=== PATIENT | female | born 1960 | race Caucasian/White ===

== ENCOUNTER 2016-06-09 11:14 | Emergency (ER) | payer OTHER, MEDICARE ==
[~2016-06-09] VITALS: Ht 167.6 cm; Wt 90.9 kg
[~2016-06-09 11:14] MED LIST: CHOL500050 PO; CLOB15CR3 TP; CYA1000I IM; FLUT16SP2 NS; HYDR4TAB PO; MAGN500C4 PO; METH5SOL PO; METH750T3 PO; PANT40VI2 IV; [UNRECOGNIZED DRUG - CODE] IV
[2016-06-09 11:28] VITALS: BP 126/75; PULSE 79; RESP 17; O2SAT 97
--- NOTE | 2016-06-09 11:44 | ED.REPORT ---
HPI-Extremity Problem Lower Date of Service Jun 09, 2016 ED Provider: Jimmy Gonzales MD The patient is a 55 year old female with history of hypotension who presents to the emergency department complaining of left ankle pain that began last night after she fell around 1900. The patient states she was at a restaurant that was poorly lit and she missed a step and fell on her left side. She did not hit her head or lose consciousness. At this time she complains of left ankle pain, left foot pain, bilateral knee pain, and left hand pain. She has been unable to bear weight on her left leg since onset. She is not on blood thinners. She has not injured her left ankle, foot, or knee in the past. She has history of chronic pain and takes Dilaudid as needed. Nursing Notes Stated Complaint: LEFT LEG PAIN Chief Complaint: Extremity Trauma Nursing Notes Reviewed: Yes Allergies: Coded Allergies: codeine (Verified Allergy, Intermediate, Hives, 02/04/16) diclofenac sodium (Verified Allergy, Intermediate, Rash, 02/04/16) ibuprofen (Verified Allergy, Intermediate, Nausea,Vomiting, 02/04/16) zolpidem (Verified Allergy, Intermediate, sleep walking/ abnormal activity , 01/08/14) Adhesives (Unverified Allergy, Unknown, UNKNOWN (NO PLASTIC TAPE-HYPA FIX OK), 02/04/16) Tetracyclines (Unverified Allergy, Unknown, UNKNOWN, 02/04/16) capsaicin (Verified Allergy, Unknown, Blood blisters, 02/04/16) menthol (Verified Allergy, Unknown, blood blisters, 02/04/16) aspirin (Verified Adverse Reaction, Severe, Contraindicated post gastric bypass, 02/04/16) morphine (Unverified Adverse Reaction, Severe, NO ALLERGY-DRUG NOT EFFECTIVE, 02/04/16) Uncoded Allergies: NSAIDS (Allergy, Unknown, WITH GASTRIC SURGERY NO NSAIDS, 02/04/16) Scheduled Cholecalciferol (Vitamin D3) (Vitamin D3) 50,000 Unit Capsule 50,000 UNIT PO WKLY Cyanocobalamin (Cyanocobalamin Injection) 1,000 Mcg/1 Ml Vial 1,000 MCG IM Monthly 10TH OF THE MONTH Fluticasone Propionate (Flonase Nasal) 16 Gm [place].susp 1 SPRAY NS prn Magnesium Oxide (Magnesium) 500 Mg Capsule 500 MG PO DAILY Methadone (Methadone) 5 Mg/5 Ml Solution 10 MG PO am and mid day Methadone (Methadone) 5 Mg/5 Ml Solution 5 MG PO HS Pantoprazole Sodium (Protonix IV) 40 Mg Vial 40 MG IV Q 8HRS Promethazine (Promethazine) 50 Mg/1 Ml Ampul 50 MG IV Q 4HRS PRN Scheduled PRN Clobetasol Propionate/Emoll (Clobetasol Emollient 0.05% Crm) 15 Gm Cream..g. 1 APPL TP BID PRN PRN PRN Hydromorphone (Hydromorphone) 4 Mg Tablet 4-8 MG PO q6hrs PRN PRN Pain Methocarbamol (Methocarbamol) 750 Mg Tablet 750 MG PO TID PRN PRN For Spasm General Time Seen by MD: 11:38 Chief Complaint Leg injury left Hx Obtained From: Patient Arrived By: Wheelchair Onset Occurred: Yesterday Symptom Duration: Since onset Caused by: Fall on ground Location: : Foot left: Knee left: Knee right: Leg left: Leg right Quality: Painful Severity: Current: Moderate Severity: Maximum: Moderate Exacerbated by: Range of motion, Movement Relieved by: Immobilization Recent Healthcare: No recent doctor visit, No recent hospitalization Similar Sx Previous: No Past Medical History Past Medical History Hypotension Esophageal dysmotility GERD Chronic pain Past Surgical History Gastric bypass Family History Noncontributory Smoking History Former Smoker Social History Other Social History: Good social support, Local resident Ambulatory Status Independent Review of Systems Musculoskeletal: Reports: Extremity pain, Joint pain, Joint swelling Skin: Reports Swelling Complete sys rev & neg: except as marked. Physical Exam Initial Vital Signs Vital Signs (First) Date Time Temp Pulse Resp B/P Pulse Ox O2 Delivery O2 Flow Rate FiO2 06/09/16 11:28 79 17 126/75 97 Room Air 06/09/16 14:08 36.4 Initial VS: Reviewed Head / Eyes: Atraumatic, Normocephalic, PERRL ENT: Mucous membranes moist, Conjunctiva normal, No scleral icterus Neck: Supple, Non-tender, Full range of motion Respiratory: Breath sounds normal, Clear to auscultation, No respiratory distress Cardiovascular: Regular rate & rhythm, Heart sounds normal, Intact distal pulses Abdomen / GI: Soft, Non-tender, No guarding, No rebound, No distention Lymphatic: No lymphadenopathy Upper Extremities: Vascular intact, Neuro intact Skin: Warm, Dry, No cyanosis Neurologic: Alert, Oriented, Nonfocal Psychiatric: Mood/affect normal, Behavior normal, Normal thought content Lower Extremity / Pelvis / MS: Neurologic intact, Vascular intact She has diffuse tenderness about the left knee, there is an abrasion and ecchymosis overlying the inferior aspect of the left patella. She has swelling about the left lateral foot and ankle. She is tender about the left lateral ankle and there is an overlying abrasion. There is also an abrasion overlying the right knee. Otherwise extremities are atraumatic. General/Constitutional: Awake, Cooperative Upper Extremity / MS: Neurologic intact, Vascular intact Ecchymosis overlying the dorsal PIP joint of her left fifth finger. She has pain with flexion of her left small finger. Good cap refill sensation intact. Otherwise her upper extremities are atraumatic. Interpretation & Diagnostics X-Ray Interpretation Xray Interpretation: IMPRESSION: Cortical irregularity along the anterior aspect of the talus and navicular bones. There is mild appearance of overlying soft tissue edema particularly over the talus portion. While these could represent areas of old injury, recommend correlation with point tenderness, as acute fracture cannot be excluded. Dictated by: Nicole Rubio M.D. on 06/09/2016 at 12:53 X-Ray Ordered: Ankle left Interpretation / Wet Read by: Interpret - Radiologist Xray Interpretation: IMPRESSION: No visualized acute fracture or dislocation. However, if clinical concern and/or pain persist, short interval imaging followup in 7-10 days is recommended, as occult injury cannot be definitively excluded. Dictated by: Nicole Rubio M.D. on 06/09/2016 at 12:58 X-Ray Ordered: Knee left Interpretation / Wet Read by: Interpret - Radiologist Xray Interpretation: IMPRESSION: Cortical irregularities of the anterior talus and navicular bones as above. While these may be sequela of old trauma, given history of recent fall, recommend correlation point tenderness as acute subacute fracture cannot be excluded. Dictated by: Nicole Rubio M.D. on 06/09/2016 at 12:59 X-Ray Ordered: Foot left Interpretation / Wet Read by: Interpret - Radiologist Xray Interpretation: IMPRESSION: No visualized acute fracture or dislocation. However, if clinical concern and/or pain persist, short interval imaging followup in 7-10 days is recommended, as occult injury cannot be definitively excluded. Dictated by: Nicole Rubio M.D. on 06/09/2016 at 13:00 X-Ray Ordered: Hand left Interpretation / Wet Read by: Interpret - Radiologist Xray Interpretation: IMPRESSION: No visualized acute fracture or dislocation. However, if clinical concern and/or pain persist, short interval imaging followup in 7-10 days is recommended, as occult injury cannot be definitively excluded. Dictated by: Nicole Rubio M.D. on 06/09/2016 at 12:57 X-Ray Ordered: Knee right Interpretation / Wet Read by: Interpret - Radiologist Re-Eval/Medical Decision Med Decision/Clinical Course In summary, the patient is a 55-year-old female with chronic pain on oral Dilaudid presents to the emergency department for evaluation after a ground- level fall that she sustained last night while walking down some stairs. She is complaining about left fifth finger pain, bilateral knee pain and left ankle pain. The patient is afebrile with stable vital signs and examination as above. She is neurovascularly intact in all 4 extremities. There is no evidence on plain films of fracture to her left hand or bilateral knees. Her primary complaint is her left ankle/foot. X-rays of this region demonstrated soft tissue swelling without any obvious fracture. She complains that she is having significant ongoing foot pain and difficulty weightbearing. I cannot definitively rule out occult fracture though her overall presentation seems most consistent with ankle sprain. She was placed in a boot and offered crutches so she stated that she was not able to use crutches due to previous injuries. She came to the emergency room with a walker which she will use instead. At this time, there is no evidence of any neurovascular injury or significant ligamentous instability. She will follow up closely with her primary care physician next week. Her pain was treated here in the emergency department with one Newcomb. She will elevate her leg and apply ice packs. She will continue to take her regularly prescribed dilaudid and I do not feel that additional pain medications are indicated at this time. Follow-up and return precautions were reviewed in detail and she was discharged in good condition. Additionally she was placed in a left fifth finger splint at her request due to ongoing pain in her finger. Source of Hx: Old records Re-Evaluation/Progress : Time of Eval: 13:18 Re-Evaluation/Progress Note: Rechecked the patient. Discussed results, diagnosis, and plan for discharge. Counseled Regarding: Diagnosis, Need for follow-up, When/why to return to ED Discharge & Departure Impression: Primary Impression: Fall Encounter type: initial encounter Qualified Code: W19.XXXA - Unspecified fall, initial encounter Additional Impressions: Contusion of left knee Encounter type: initial encounter Qualified Code: S80.02XA - Contusion of left knee, initial encounter Contusion of right knee Encounter type: initial encounter Qualified Code: S80.01XA - Contusion of right knee, initial encounter Contusion of left index finger Encounter type: initial encounter Damage to nail status: without damage Qualified Code: S60.022A - Contusion of left index finger without damage to nail, initial encounter Ankle sprain Encounter type: initial encounter Involved ligament of ankle: unspecified ligament Laterality: left Qualified Code: S93.402A - Sprain of unspecified ligament of left ankle, initial encounter Disposition: Home Discharge Condition All VS Reviewed: Yes Condition: Stable Patient Instructions: Ankle Sprain (GEN) Additional Instructions: Thank you for seeking care at the emergency room. Our primary goal today in the ED was to evaluate you for any life-threatening conditions. Your evaluation was reassuring. Wear the boot and limit weight bearing until it is starting to feel better. Elevate the ankle at night and apply ice when possible. You can use your regularly prescribed pain medication as needed. Followup with your regular doctor next week for re-evaluation. If your pain is not improved by next week you may need a repeat x-ray. You should return to the ED immediately if you develop increased pain, swelling , or redness, fever, chills, nausea, vomiting, or any other concerning signs or symptoms. Thank you for letting us partake in your care today. Referrals: Rey Del Real MD (PCP) Miguelibnanci Attestation Portions of this note were transcribed by Nelia Carlton. I, Dr. Gonzales personally performed the history, physical exam and medical decision-making; I reviewed and confirmed the accuracy of the information in the transcribed note. Signed by: Caleb Cha, 06/09/2016 at 1330. copies to: Rey Del Real MD, Beck O MD Jun 09, 2016 11:44 Nelia Carlton Jun 09, 2016 11:50
--- NOTE | 2016-06-09 12:59 | DRSVH ---
PROCEDURE: X-RAY LEFT ANKLE, MINIMUM THREE VIEWS ([id number]) INDICATIONS: trauma TECHNIQUE: 3 views of the ankle were acquired. COMPARISON: [facility], CR, XR FOOT 3VW LT, 06/09/2016, 11:49. FINDINGS: Bones: There is an osseous cortical irregularity along the anterior aspect of the talus. In addition, there is a cortical irregularity along the dorsal aspect of the navicular bone. Soft tissues: No tibiotalar joint effusion. Achilles tendon appears normal. IMPRESSION: Cortical irregularity along the anterior aspect of the talus and navicular bones. There i s mild appearance of overlying soft tissue edema particularly over the talus portion. While these cou ld represent areas of old injury, recommend correlation with point tenderness, as acute fracture yovani ot be excluded. Dictated by: Nicole Rubio M.D. on 06/09/2016 at 12:53 Approved by: Nicole Rubio M.D. on 06/09/2016 at 12:57
--- NOTE | 2016-06-09 13:00 | DRSVH ---
PROCEDURE: X-RAY LEFT KNEE, THREE VIEWS ([id number]) INDICATIONS: trauma TECHNIQUE: 3 views of the knee were acquired. COMPARISON: [facility], , KNEE 3VW (LT), 03/17/2013, 17:56. FINDINGS: Bones: Moderate to severe medial and moderate patellofemoral compartment degenerative narrowing. No v isualized fracture. Soft tissues: No joint effusion. No suspicious soft tissue calcifications. IMPRESSION: No visualized acute fracture or dislocation. However, if clinical concern and/or pain pe rsist, short interval imaging followup in 7-10 days is recommended, as occult injury cannot be defini tively excluded. Dictated by: Nicole Rubio M.D. on 06/09/2016 at 12:58 Approved by: Nicole Rubio M.D. on 06/09/2016 at 12:59
--- NOTE | 2016-06-09 13:00 | DRSVH ---
PROCEDURE: X-RAY RIGHT KNEE, THREE VIEWS ([id number]) INDICATIONS: trauma TECHNIQUE: 3 views of the knee were acquired. COMPARISON: [facility], CR, XR KNEE 3VW RT, 10/26/2015, 17:42. FINDINGS: Bones: No fractures or dislocations. No suspicious bony lesions. Moderate medial and patellofemora l compartment degenerative narrowing. Soft tissues: No joint effusion. No suspicious soft tissue calcifications. IMPRESSION: No visualized acute fracture or dislocation. However, if clinical concern and/or pain pe rsist, short interval imaging followup in 7-10 days is recommended, as occult injury cannot be defini tively excluded. Dictated by: Nicole Rubio M.D. on 06/09/2016 at 12:57 Approved by: Nicole Rubio M.D. on 06/09/2016 at 12:58
--- NOTE | 2016-06-09 13:02 | DRSVH ---
PROCEDURE: X-RAY LEFT FOOT COMPLETE, MINIMUM THREE VIEWS ([id number]) INDICATIONS: trauma TECHNIQUE: 3 views of the foot were acquired. COMPARISON: None. FINDINGS: Bones: Cortical irregularities are present within the anterior dorsal aspect of the talus and dorsal aspect of the navicular bone. There is a minimal appearance of overlying soft tissue edema particular ly at the level of the talus. Soft tissues: No tibiotalar joint effusion. Achilles tendon appears normal. IMPRESSION: Cortical irregularities of the anterior talus and navicular bones as above. While these m ay be sequela of old trauma, given history of recent fall, recommend correlation point tenderness as acute subacute fracture cannot be excluded. Dictated by: Nicole Rubio M.D. on 06/09/2016 at 12:59 Approved by: Nicole Rubio M.D. on 06/09/2016 at 13:00
--- NOTE | 2016-06-09 13:03 | DRSVH ---
PROCEDURE: X-RAY LEFT HAND, MINIMUM THREE VIEWS ([id number]) INDICATIONS: trauma TECHNIQUE: 3 views of the hand(s) acquired. COMPARISON: None. FINDINGS: Bones: No fractures or dislocations. Carpal bones are normally aligned. No suspicious bony lesions . Soft tissues: No suspicious soft tissue calcifications. IMPRESSION: No visualized acute fracture or dislocation. However, if clinical concern and/or pain pe rsist, short interval imaging followup in 7-10 days is recommended, as occult injury cannot be defini tively excluded. Dictated by: Nicole Rubio M.D. on 06/09/2016 at 13:00 Approved by: Nicole Rubio M.D. on 06/09/2016 at 13:01
[2016-06-09 14:08] VITALS: BP 102/70; PULSE 78; RESP 16; O2SAT 98
[2016-08-16] MEDS ORDERED: CEPH-512 PO (18:32)
[2016-08-16] MEDS ORDERED: LEVO25CA2 PO (18:32)
== END 2016-06-09 14:09 | disposition home or self-care (01) ==
LOC: SED 11:14
DX: S93.402A Sprain of unspecified ligament of left ankle, initial encounter (principal); S80.01XA Contusion of right knee, initial encounter; S80.02XA Contusion of left knee, initial encounter; S60.022A Contusion of left index finger without damage to nail, initial encounter; W10.9XXA Fall (on) (from) unspecified stairs and steps, initial encounter; Y93.01 Activity, walking, marching and hiking; Y99.8 Other external cause status; Y92.511 Restaurant or cafe as the place of occurrence of the external cause; K21.9 Gastro-esophageal reflux disease without esophagitis; G89.29 Other chronic pain; Z98.84 Bariatric surgery status; Z87.891 Personal history of nicotine dependence; Z88.5 Allergy status to narcotic agent; Z88.6 Allergy status to analgesic agent; Z88.1 Allergy status to other antibiotic agents; Z88.8 Allergy status to other drugs, medicaments and biological substances

== ENCOUNTER 2016-07-06 16:18 | Inpatient (IN) | payer MEDICARE ==
[~2016-07-06] VITALS: Ht 168.9 cm; Wt 93.5 kg
[2016-07-06 16:20] VITALS: BP 148/96; PULSE 105; RESP 18; O2SAT 95
--- NOTE | 2016-07-06 18:16 | ED.REPORT ---
HPI-General Illness Date of Service Jul 06, 2016 ED Provider: Solange Farah MD Patient is a 55 year old female with a history of severe GERD with esophageal dysmotility and chronic pain presents to the ED for peripheral line insertion and work-up for sepsis after her infected Groshong catheter was removed just prior to arrival. The patient was found to have an infected catheter site last week and was started on 500mg Keflex. However the infection progressed, until a golf ball sized abscess formed around the catheter site. Patient was seen in the office by Dr. Carlton today, who preformed an I&D (with 3x incision sites). Her surgeon, Dr. Matamoros, sent the patient to the ED to have a peripheral IV placed. She receives Protonix and Promethazine IV chronically and she has not received these medications today. Her Groshong catheter [place] [address] Harvey. Blood cultures were drawn on 07/04, which were negative this far. The patient is on chronic pain medication (Methadone and Dilaudid) related to her chronic abdominal pain and arthritis. Patient reports severe pain associated with her I&D procedure. She denies fever or chills. Nursing Notes Stated Complaint: SENT BY DOCTOR Chief Complaint: General Complaint Nursing Notes Reviewed: Yes Allergies: Coded Allergies: codeine (Verified Allergy, Intermediate, Hives, 07/06/16) diclofenac sodium (Verified Allergy, Intermediate, Rash, 07/06/16) ibuprofen (Verified Allergy, Intermediate, Nausea,Vomiting, 07/06/16) zolpidem (Verified Allergy, Intermediate, sleep walking/ abnormal activity , 07/06/16) Adhesives (Unverified Allergy, Unknown, UNKNOWN (NO PLASTIC TAPE-HYPA FIX OK), 07/06/16) Tetracyclines (Unverified Allergy, Unknown, UNKNOWN, 07/06/16) capsaicin (Verified Allergy, Unknown, Blood blisters, 07/06/16) menthol (Verified Allergy, Unknown, blood blisters, 07/06/16) aspirin (Verified Adverse Reaction, Severe, Contraindicated post gastric bypass, 07/06/16) morphine (Unverified Adverse Reaction, Severe, NO ALLERGY-DRUG NOT EFFECTIVE, 07/06/16) Uncoded Allergies: NSAIDS (Allergy, Unknown, WITH GASTRIC SURGERY NO NSAIDS, 02/04/16) Scheduled Cholecalciferol (Vitamin D3) (Vitamin D3) 50,000 Unit Capsule 50,000 UNIT PO WEEKLY SUNDAYS Cyanocobalamin (Cyanocobalamin Injection) 1,000 Mcg/1 Ml Vial 1,000 MCG IM Monthly OF THE Hydromorphone (Hydromorphone) 4 Mg Tablet 6 MG PO QID 0800,1200,1600,0000 Magnesium Chloride (Slow-Mag) 64 Mg Tablet 64 MG PO DAILY Methadone (Methadone) 5 Mg/5 Ml Solution 7.5 MG PO QAM AT 0600 TAKE 7.5 MG PO IN AM, 12.5 MG PO AT 1400, AND 20 MG AT HS Methadone (Methadone) 5 Mg/5 Ml Solution 20 MG PO HS AT 2200 TAKE 7.5 MG PO IN AM, 12.5 MG PO AT 1400, AND 20 MG AT HS Methadone (Methadone) 10 Mg/1 Ml Oral.conc 12.5 MG PO DAILY AT 1400 TAKE 7.5 MG PO IN AM, 12.5 MG PO AT 1400, AND 20 MG AT HS Methocarbamol (Methocarbamol) 750 Mg Tablet 750 MG PO TID TAKES AT 0600, 1400, 2200 Pantoprazole Sodium (Protonix IV) 40 Mg Vial 40 MG IV Q 8HRS TAKES AT 0600, 1400, 2200 Promethazine (Promethazine) 50 Mg/1 Ml Ampul 50 MG IV Q 4HRS PRN Scheduled PRN Acetaminophen (Acetaminophen) 325 Mg Tablet 650 MG PO Q6H PRN PRN For Fever Clobetasol Propionate/Emoll (Clobetasol Emollient 0.05% Crm) 15 Gm Cream..g. 1 APPL TP BID PRN PRN PRN Fluticasone Propionate (Flonase Allergy Relief) 50 Mcg/Actuation [place].susp 1 SPRAY NS DAILY PRN PRN RHINITIS Tetrahydrozoline HCl/Zn Sulf (Visine Allergy Relief Drop) 15 Ml Drops 2 DROP BOTH_EYES Q2H PRN PRN DRY EYES General Time Seen by MD: 18:13 Chief Complaint Other Hx Obtained From: Patient Arrived By: Walk-in Onset Occurred: Just prior to arrival (catheter removed just prior to arrival, signs of infection for the past week) Symptom Duration: Since onset Quality: Painful Severity: Current: Mild Severity: Maximum: Mild Recent Healthcare: No recent hospitalization, Recent doctor visit Similar Sx Previous: No Past Medical History Past Medical History Hypotension Esophageal dysmotility GERD Chronic pain Groshong catheter for chronic IV medications Past Surgical History Gastric bypass Groshong catheter site (I&D) Family History Noncontributory Smoking History Former Smoker Social History Other Social History: Good social support, Local resident Ambulatory Status Independent Review of Systems Full Review of Systems Constitutional: Denies: Chills, Fever Cardiovascular: Reports: Chest pain (associated with recent I&D), Denies: Palpitations Complete sys rev & neg: except as marked. Physical Exam Vital Signs Vital Signs Date Time Temp Pulse Resp B/P Pulse Ox O2 Delivery O2 Flow Rate FiO2 07/06/16 16:20 36.0 105 18 148/96 95 Room Air Initial VS: Reviewed Head / Eyes: Atraumatic, Normocephalic, PERRL ENT: Conjunctiva normal, No scleral icterus Neck: Supple, Full range of motion Abdomen / GI: Soft, Non-tender, No guarding, No rebound Skin: Warm, Dry, No cyanosis Neurologic: Alert, Oriented, Nonfocal Psychiatric: Mood/affect normal, Behavior normal, Normal thought content General/Constitutional: Awake, Alert, No acute distress Respiratory / Chest: Breath sounds NL, Breath sounds = bilat, No respiratory distress, No rales, No rhonchi, No wheezing Pain and tenderness of the area of her recent I&D. Three vertical incisions, each 2xm in length, just left of the parasternal region. The superior two incision are sutures, with the bottom incision has packing with wick sticking out. Cardiovascular: Regular rhythm, Heart sounds NL Heart Rate / Rhythm: Positive: Tachycardia Interpretation & Diagnostics Lab Results Interpretation Result Diagram: 07/06/16191907/06/161919 Test 07/06/16 19:20 White Blood Count 4.6th/mm3 (3.8-10.1) Red Blood Count 4.33mil/mm3 (3.90-5.20) Hemoglobin 11.3g/dL (12.0-15.6) Hematocrit 36.2% (35.0-46.0) Mean Corpuscular Volume 83.6fL (81-100) Mean Corpuscular Hemoglobin 26.1pg (27.0-35.0) Mean Corpuscular Hemoglobin Concent 31.2% (32.0-37.0) Red Cell Distribution Width 14.2% (12.3-15.4) Platelet Count 311bil/L (150-400) Neutrophils (%) (Auto) 50.9% (40-74) Lymphocytes (%) (Auto) 39.0% (14-46) Monocytes (%) (Auto) 9.9% (4-12) Eosinophils (%) (Auto) 0% (0-5) Basophils (%) (Auto) 0% (0-3) Sodium Level 132mEq/L (134-144) Potassium Level 3.6mEq/L (3.5-5.2) Chloride Level 98mEq/L (97-108) Carbon Dioxide Level 23mmol/L (18-29) Blood Urea Nitrogen 12mg/dL (6-24) Creatinine 0.59mg/dL (0.57-1.00) Estimat Glomerular Filtration Rate 152mL/min (>59) Glucose Level 94mg/dL (60-99) Lactic Acid Level 0.6mmol/L (0.4-2.0) Calcium Level 8.6mg/dL (8.5-10.1) Total Bilirubin 0.2mg/dL (0.0-1.2) Aspartate Amino Transf (AST/SGOT) 35U/L (0-50) Alanine Aminotransferase (ALT/SGPT) 28U/L (0-32) Alkaline Phosphatase 142U/L (25-150) Total Protein 6.9g/dL (6.4-8.4) Albumin 3.7g/dL (3.4-5.0) Hold Dawson Top Tube Received (Received) Re-Eval/Medical Decision Med Decision/Clinical Course 55-year-old female here sent by her surgeon after I&D of abscess surrounding her long-term indwelling Groshung catheter. Differential diagnosis includes but is not limited to catheter associated infection versus abscess versus bacteremia versus uncomplicated I&D. Patient has been given broad-spectrum antibiotics, blood cultures have been drawn, and she has been admitted to the hospitalist service. She is aware and amenable to this plan. Source of Hx: Old records Time of Eval: 19:46 Patient Status: Condition improved Re-Evaluation/Progress Note: Rechecked the patient. She was informed of the plan for hospital admission. Patient understands and agrees with the plan. All questions were addressed. Consultation : Referral / Consult Name: Radha Stone DO Consulted With: Hospitalist Call Returned at: 20:27 Coal Inspector: Will see patient, Agrees with eval, Agrees with plan, Accepts admit Note: Spoke with Dr. Stone, hospitalist, who agrees to accept admit. Counseled Regarding: Diagnosis, Lab results, Need for admission Discharge & Departure Primary Impression: Abscess Disposition: ADMITTED TO HOSPITAL Discharge Condition All VS Reviewed: Yes Condition: Stable Referrals: Rey Del Real MD (PCP) Scribe Attestation Portions of this note were transcribed by Jess Atkinson. I, Dr. Farah personally performed the history, physical exam and medical decision-making; I reviewed and confirmed the accuracy of the information in the transcribed note. Signed by: Caleb Orosco, 07/06/20162027 copies to: Rey Del Real MD, Rebecca A MD Jul 06, 2016 18:16 Jess Atkinson Jul 06, 2016 18:38
[2016-07-06 19:36] LABS: BASOPHILS % (AUTO) 0 % (0-3); EOSINOPHILS % (AUTO) 0 % (0-5); MONOCYTES % (AUTO) 9.9 % (4-12); Mean Corpuscular Hemoglobin 26.1 pg (27.0-35.0); Mean Corpuscular Volume 83.6 fL (81-100); NEUTROPHILS % (AUTO) 50.9 % (40-74); Platelet Count 311 bil/L (150-400)
[2016-07-06] MEDS ORDERED: HYDROmorphone 1 mg/mL Inj IVPUSH ONE (19:55)
[2016-07-06] MEDS ORDERED: Promethazine Inj 25 MG in Dextrose 5%-Pha MIX 50 ML IV ONE (19:55)
[2016-07-06] MEDS ORDERED: Pantoprazole 4 mg/mL 10 mL Inj IVPUSH ONE (19:55)
[2016-07-06] MEDS ORDERED: Vancomycin Inj 1,000 MG in IV Premix 1 EACH IV ONE ×2 (20:05→23:00)
[2016-07-06] MEDS ORDERED: Piperacillin-Tazo 3.375 Gm Inj 3.375 GM in Dextrose 5% Minibag Plus 50 ML IV ONE (20:05)
[2016-07-06] MEDS ORDERED: Ondansetron 2 mg/mL 2 mL Inj IVPUSH PRN ×3 (20:30→21:10)
[2016-07-06] MEDS ORDERED: Polyethylene Glycol (PEG) 17 Gm Powder PO PRN (20:30)
[2016-07-06] MEDS ORDERED: Alum-Mag Hydrox-Simeth 30 mL Suspension PO PRN (20:30)
[2016-07-06] MEDS ORDERED: SLO64 PO (20:43)
[2016-07-06] MEDS ORDERED: METH10OR11 PO (20:43)
--- NOTE | 2016-07-06 20:48 | DRSVH ---
PROCEDURE: X-RAY CHEST, TWO VIEWS ([id number]) INDICATIONS: abscess TECHNIQUE: 2 views of the chest were acquired. COMPARISON: [facility], , CHEST 2VW, 12/02/2012, 15:08. FINDINGS: Surgical changes and devices: None. Lungs and pleura: No pleural effusions or pneumothorax. Lungs are clear. Mediastinum: Mediastinal contours are normal. Heart size is normal. Bones and chest wall: No suspicious bony abnormalities. Soft tissues appear unremarkable. IMPRESSION: No acute disease. Dictated by: Amanda Degroot M.D. on 07/06/2016 at 20:46 Approved by: Amanda Degroot M.D. on 07/06/2016 at 20:46
[2016-07-06] MEDS ORDERED: FLUT9.9S NS (20:51)
[2016-07-06] MEDS ORDERED: ACET325T51 PO (20:52)
[2016-07-06] MEDS ORDERED: TETR15DR77 BOTH_EYES (20:52)
[2016-07-06] MEDS ORDERED: PROMETHAZINE 50 MG IV SCH (21:20)
[2016-07-06] MEDS ORDERED: [UNRECOGNIZED DRUG - REMARK] BOTH_EYES PRN (21:20)
[2016-07-06] MEDS ORDERED: Pantoprazole 4 mg/mL 10 mL Inj IV SCH (21:30)
[2016-07-06 21:40] VITALS: BP 144/92; PULSE 94; RESP 18; O2SAT 96
--- NOTE | 2016-07-06 21:51 | PCM.HPMED ---
Subjective Date of Service Jul 06, 2016 Primary Provider: Admitting Physician: Radha Stone DO Primary Care Physician: Rey Del Real MD Attending Physician: Radha Stone DO Admit Status: From the Emergency Department Chief Complaint: Infection of Groshong catheter site History of Present Illness: Patient is a pleasant 55-year-old woman with interesting medical history of GERD , esophageal dysmotility, chronic pain who presented to the emergency department from surgeon's office for evaluation of central line infection, IV placement and administration of scheduled IV medications. She had a Groshong catheter in place to receive numerous medications that she could not consume due to the esophageal dysmotility. Last week the patient was found to have an infected catheter site and started on 500 mg of Keflex, however the infection progressed and developed a golf ball size abscess at the catheter insertion site. Patient was seen by Dr. Carlton today, he performed an I&D of 3 separate sites along patient's chest, Dr. Matamoros sent the patient to the emergency department to have IV antibiotics given. She received Protonix, promethazine, which have been scheduled but was unable to receive this today due to the complications of her Groshong catheter. She denies any lightheadedness, dizziness, chest pain that is not associated with a Groshong catheter or I&D sites, no shortness of breath, nausea is becoming under control after receiving IV medications, no pain in the extremities, no fever, no chills, she endorses having some itching to her arms, swelling in her legs which she claims comes and goes, and says she's had weakness in the previous days causing making it difficult to be up and about. No dysuria or urgency. Chronic joint pain in left knee. Presentation to the emergency department vital signs were 36 0C, heart rate 105 , respiratory rate 18, blood pressure 140/96, and satting 95% on room air White blood cells 4.6, normal differential, CMP: Sodium 132, otherwise CMP unremarkable. Chest x-ray: "No acute disease" Patient has a list of high risk medications including methadone, hydromorphone, takes promethazine and Protonix IV scheduled daily. Medication reconciliation was performed by the emergency room pharmacist. Additionally the patient has numerous allergies, please see list Review of Systems: Comprehensive ROS negative unless stated in history of present illness Allergies Coded Allergies: codeine (Verified Allergy, Intermediate, Hives, 07/06/16) diclofenac sodium (Verified Allergy, Intermediate, Rash, 07/06/16) ibuprofen (Verified Allergy, Intermediate, Nausea,Vomiting, 07/06/16) zolpidem (Verified Allergy, Intermediate, sleep walking/ abnormal activity , 07/06/16) Adhesives (Unverified Allergy, Unknown, UNKNOWN (NO PLASTIC TAPE-HYPA FIX OK), 07/06/16) Tetracyclines (Unverified Allergy, Unknown, UNKNOWN, 07/06/16) capsaicin (Verified Allergy, Unknown, Blood blisters, 07/06/16) menthol (Verified Allergy, Unknown, blood blisters, 07/06/16) aspirin (Verified Adverse Reaction, Severe, Contraindicated post gastric bypass, 07/06/16) morphine (Unverified Adverse Reaction, Severe, NO ALLERGY-DRUG NOT EFFECTIVE, 07/06/16) Uncoded Allergies: NSAIDS (Allergy, Unknown, WITH GASTRIC SURGERY NO NSAIDS, 02/04/16) Home Medications Scheduled Cholecalciferol (Vitamin D3) (Vitamin D3) 50,000 Unit Capsule 50,000 UNIT PO WKLY Cyanocobalamin (Cyanocobalamin Injection) 1,000 Mcg/1 Ml Vial 1,000 MCG IM Monthly 10TH OF THE Fluticasone Propionate (Flonase Nasal) 16 Gm [place].susp 1 SPRAY NS prn Magnesium Oxide (Magnesium) 500 Mg Capsule 500 MG PO DAILY Methadone (Methadone) 5 Mg/5 Ml Solution 10 MG PO am and mid day Methadone (Methadone) 5 Mg/5 Ml Solution 5 MG PO HS Pantoprazole Sodium (Protonix IV) 40 Mg Vial 40 MG IV Q 8HRS Promethazine (Promethazine) 50 Mg/1 Ml Ampul 50 MG IV Q 4HRS PRN Scheduled PRN Clobetasol Propionate/Emoll (Clobetasol Emollient 0.05% Crm) 15 Gm Cream..g. 1 APPL TP BID PRN PRN PRN Hydromorphone (Hydromorphone) 4 Mg Tablet 4-8 MG PO q6hrs PRN PRN Pain Methocarbamol (Methocarbamol) 750 Mg Tablet 750 MG PO TID PRN PRN For Spasm PMH Hypotension Esophageal dysmotility GERD Chronic pain Groshong catheter for chronic IV medications Osteoarthritis of knees Surgical History Gastric bypass Cholecystectomy Hysterectomy Appendectomy Reconnection of right Achilles tendon Tumor resection from left fourth upper extremity digit Family History Patient was adopted at young age Mother has/had hypertension Father when patient was 10 years old with no explanation given to her. Social History Hx Alcohol Use: No Hx Substance Use: Yes (methadone since 2000 for chronic pain) Hx Tobacco Use: No Smoking Status: Former Smoker Exam Vital Signs Vital Sign - Last Date Time Temp Pulse Resp B/P Pulse Ox O2 Delivery O2 Flow Rate FiO2 07/06/16 21:40 94 18 144/92 96 Room Air 07/06/16 16:20 36.0 Exam General: Laying in bed, no apparent distress. HEENT: Normocephalic, atraumatic, EOMI grossly, mucous membranes moist, conjunctivae pink Cardiovascular: Regular rate and rhythm, no clicks murmurs rubs, peripheral pulses 2/4 equal bilaterally Pulmonary: Clear to auscultation bilaterally, no W/R/R. Abdominal: Soft to palpation, bowel sounds present 4, no hepatosplenomegaly. Negative rebound. Thorax: There is an open wound left sternal tract with gauze wick, 2 closed vertical incisions from previous I&D's, the area was tender, redness, no purulent drainage appreciated. Extremities: Bilateral mild lower extremity edema, nonpitting. There are pinprick lesions to the dorsum of the right hand and anterior right wrist, she states this is from medical staff attempting IV access and blood draws Neuro: Neurologically grossly intact, strength is equal bilaterally upper and lower extremities. MSK: Strength 5 out of 5, until limited by pain in her chest using her upper extremities, or in her knee from the osteoarthritis. Lab and Diagnostics Result Diagram: 07/06/16191907/06/161919 Microbiology Blood cultures 2 pending X-Rays, CTs and MRIs Chest x-ray performed 07/06/2016 IMPRESSION: No acute disease. Dictated by: Amanda Degroot M.D. on 07/06/2016 at 20:46 12-lead ECG Pending Assessment & Plan 55-year-old woman with chronic pain, previous Groshong catheter placement in place for 3 years, receiving pain medications and antinausea medications times daily presented with catheter insertion site infection, status post abscess drainage. #1 acute sepsis, present on admission, treatment initiated Heart rate 105 on presentation, temperature 36.0, subjective weakenss, identified source infected catheter site mid chest. White blood cell count 4.6, normal differential Lactic acid pending Treatment for infection as below IV fluids, normal saline 100 mL per hour. #2 acute infected/purulent/abscessed Groshong catheter site, present on admission, treatment ongoing Blood cultures from outpatient taken 07/04/2016 no growth after 2 days. Unable to find record that purulent sample was sent for culture and sensitivity for that wound was cultured. Wound culture order has been placed. Received IV vancomycin and Zosyn in the emergency department Continue Vanc dosed per pharm and zosyn 3.375 q8hrs. IV. for Staph and pseudomonal coverage. #3 Acute hyponatremia, present on admission, treatment initiated Serum sodium was found to be 132, no other blood abnormalities, kidneys normal, possibly due to decreased oral intake secondary to increased GERD and esophageal dysmotility, superimposed on chronic infection. IV fluids: Normal saline, 100 mL per hour recheck CMP every morning #4 acute urticarial rash, waxing and waning, present on admission, evaluation and treatment ongoing Patient was describing itching to her arms, so that this precedes hives which she has been getting every couple of days, unknown source, has scheduled appointment with stock shipper as an outpatient) does not describe any difficulty breathing, or swelling of her neck, lips, or mucous membranes with a rash. States Benadryl does not help Consider IV prednisone if reoccurs while in the hospital. #5 Chronic esophageal dysmotility/spasm Patient states this is the reason for her numerous pain medications including Dilaudid and methadone. cont home regimen of by mouth analgesia. Additionally she claims methocarbamol, which is available when necessary outpatient helps as well. #6 Chronic severe GERD, improved, present on admission requiring IV promethazine 50 mg every 4 hours and Protonix 40 mg 2 times a day, Patient missed 2 doses before presentation to the ER, has improved since menstruation of these medications IV. Continue home regimen while inpatient. We will check EKG for concern for QT prolongation #Chronic stable medical conditions Hypomagnesemia - Check serum magnesium level, replete as necessary Vitamin D deficiency -Continue home medication necessary Pain Evaluation: Adequate Pain Control GI Prophylaxis: Proton Pump Inhibitor VTE Prophylaxis: CAROL Gillespie Resuscitation Status: CPR: Attempt Resuscitation Attending Statement The patient was seen and examined together with house staff on 3/17/17 and I agree with the history, exam and plan as outlined in the note above. Brodie Terrell DO Jul 06, 2016 21:51 Radha Stone DO Jul 07, 2016 03:19
[2016-07-06 22:00] VITALS: BP 119/69; PULSE 87; RESP 18; O2SAT 95
[2016-07-06] MEDS ORDERED: Promethazine 25 mg/mL Inj IV PRN (22:00)
[2016-07-06 22:05] VITALS: BP 119/69; PULSE 86; RESP 18; O2SAT 96
[2016-07-06] MEDS: 0.9% Sodium Chloride 1,000 ML IV SCH (23:55)
[2016-07-07] MEDS: Sodium Chloride LOK Flush 10 mL Syringe IVFLUSH SCH ×3 (00:30→18:46)
[2016-07-07 00:57] LABS: APPEARANCE,URINE CLEAR (CLEAR,HAZY); COLOR,URINE YELLOW (YELLOW); OCCULT BLOOD,URINE NEGATIVE (NEGATIVE); PH,URINE 5.5 (5.0-8.0); UROBILINOGEN,URINE NORMAL (NORMAL)
[2016-07-07 01:47] VITALS: BP 103/67; PULSE 82; RESP 20; O2SAT 97
[2016-07-07 02:00] VITALS: BP 103/67; PULSE 78; RESP 20; O2SAT 95
--- NOTE | 2016-07-07 03:00 | PCM.CONPHA ---
Subjective Date of Service: Jul 06, 2016 Requesting Provider: Brodie Terrell DO Infection of Groshong catheter site History of Present Illness infection of catheter on [facility] Reason for Pharmacy Consult: Vancomycin Dosing Objective Vital Signs Date Time Temp Pulse Resp B/P Pulse Ox O2 Delivery O2 Flow Rate FiO2 07/07/16 01:47 36.8 82 20 103/67 97 Room Air 07/06/16 22:05 36.6 86 18 119/69 96 Room Air 07/06/16 21:40 94 18 144/92 96 Room Air 07/06/16 16:20 36.0 105 18 148/96 95 Room Air Weight (Kilograms): 91.000 Height (Feet): 5 Height (Inches): 6.50 Test 07/06/16 19:20 07/07/16 00:10 White Blood Count 4.6th/mm3 (3.8-10.1) Red Blood Count 4.33mil/mm3 (3.90-5.20) Hemoglobin 11.3g/dL (12.0-15.6) Hematocrit 36.2% (35.0-46.0) Mean Corpuscular Volume 83.6fL (81-100) Mean Corpuscular Hemoglobin 26.1pg (27.0-35.0) Mean Corpuscular Hemoglobin Concent 31.2% (32.0-37.0) Red Cell Distribution Width 14.2% (12.3-15.4) Platelet Count 311bil/L (150-400) Neutrophils (%) (Auto) 50.9% (40-74) Lymphocytes (%) (Auto) 39.0% (14-46) Monocytes (%) (Auto) 9.9% (4-12) Eosinophils (%) (Auto) 0% (0-5) Basophils (%) (Auto) 0% (0-3) Sodium Level 132mEq/L (134-144) Potassium Level 3.6mEq/L (3.5-5.2) Chloride Level 98mEq/L (97-108) Carbon Dioxide Level 23mmol/L (18-29) Blood Urea Nitrogen 12mg/dL (6-24) Creatinine 0.59mg/dL (0.57-1.00) Estimat Glomerular Filtration Rate 152mL/min (>59) Glucose Level 94mg/dL (60-99) Lactic Acid Level 0.6mmol/L (0.4-2.0) Calcium Level 8.6mg/dL (8.5-10.1) Total Bilirubin 0.2mg/dL (0.0-1.2) Aspartate Amino Transf (AST/SGOT) 35U/L (0-50) Alanine Aminotransferase (ALT/SGPT) 28U/L (0-32) Alkaline Phosphatase 142U/L (25-150) Total Protein 6.9g/dL (6.4-8.4) Albumin 3.7g/dL (3.4-5.0) Hold Dawson Top Tube Received (Received) Urine Color Yellow (YELLOW) Urine Appearance Clear (CLEAR,HAZY) Urine pH 5.5 (5.0-8.0) Urine Specific [place] 1.010 (1.003-1.035) Urine Protein Negativemg/dL (NEG,TRACE) Urine Glucose (UA) Negativemg/dL (NEGATIVE) Urine Ketones Negativemg/dL (NEGATIVE) Urine Occult Blood Negative (NEGATIVE) Urine Nitrite Negative (NEGATIVE) Urine Bilirubin Negative (NEGATIVE) Urine Urobilinogen Normalmg/dL (NORMAL) Urine Leukocyte Esterase Small (NEGATIVE) Urine RBC 0-2/hpf (0-2) Urine WBC 6-10/hpf (0-5) Urine Epithelial Cells Occasional/hpf (NONE-MOD) Urine Crystals None seen (NONE SEEN) Urine Bacteria Few/hpf (NONE-FEW) Urine Hyaline Casts None/lpf (NONE) Urine Granular Casts None seen (NONE SEEN) Urine Waxy Casts None seen (NONE SEEN) Urine Red Blood Cell Casts None seen (NONE SEEN) Urine White Blood Cell Casts None seen (NONE SEEN) Urine Mucus None seen (None Seen) Urine Trichomonas None seen (NONE SEEN) Urine Yeast None (NONE SEEN) Urinalysis Comment None Urine Culture Reflexed Indicated Assessment/Plan Assessment/Plan A/ - 55 y/o female failed outpatient po Keflex for her catheter insertion site infection, required Vancomycin to treat the now abscess at the site - Afebrile, WBC: 4.6, Dr. Matamoros performed I&D, wound material sent to lab - In ED, received loading dose of Vancomycin 2G iv and comitant abx: Zosyn - Wt: 88.6 kg, ht: 169cm, Scr: 0.59 mg/dL, estimated clearance ~ 120 ml/min , BMI: 31.9 kg/m2, Vd ~ 53 L P/ - Give Vancomycin 1.5G iv q12h starts 0800 on 07/07, 9 hrs from loading dose. Trough level ordered before 3rd dose @1930 on 07/07 Pharmacy will continue to monitor and make necessary adjustment Thank you for consulting clinical pharmacy in the care of this patient Saqib Grey PharmD, Gladys Ernst Jul 07, 2016 03:00 - In ED, received loading dose of Vancomycin 2G iv and comitant abx: Zosyn - Wt: 88.6 kg, ht: 169cm, Scr: 0.59 mg/dL, estimated clearance ~ 120 ml/min , BMI: 31.9 kg/m2, Vd ~ 53 L P/ - Give Vancomycin 1.5G iv q12h starts 0800 on 07/07, 9 hrs from loading dose. Trough level ordered before 3rd dose @1930 on 07/07 Pharmacy will continue to monitor and make necessary adjustment Thank you for consulting clinical pharmacy in the care of this patient Saqib Grey PharmD, Gladys Ernst Jul 07, 2016 03:00
[2016-07-07] MEDS: Piperacillin-Tazo 3.375 Gm Inj 3.375 GM in Dextrose 5% Minibag Plus 50 ML IV SCH ×3 (04:55→20:30)
[2016-07-07 06:16] VITALS: BP 99/63; PULSE 76; RESP 22; O2SAT 98
[2016-07-07 06:30] LABS: BASOPHILS % (AUTO) 0 % (0-3); EOSINOPHILS % (AUTO) 0.3 % (0-5); MONOCYTES % (AUTO) 7.7 % (4-12); Mean Corpuscular Hemoglobin 26.5 pg (27.0-35.0); Mean Corpuscular Volume 84.4 fL (81-100); NEUTROPHILS % (AUTO) 47.4 % (40-74); Platelet Count 292 bil/L (150-400)
[2016-07-07 06:46] LABS: Magnesium 1.5 mg/dL (1.6-2.6)
[2016-07-07] MEDS ORDERED: Magnesium Sulf 2 Gm/50mL Water 2 GM in IV Premix 1 EACH IV ONE (07:45)
[2016-07-07] MEDS: Vancomycin Dose per Pharmacist XX SCH (08:30)
[2016-07-07] MEDS: Magnesium Chloride SR 64 mg ER24 Tablet PO SCH (08:30)
[2016-07-07] MEDS ORDERED: Fluticasone 0.05% 15 Spray/2 Gm 16 Gm Nasal Spray NASAL PRN (08:30)
[2016-07-07] MEDS: Pantoprazole 4 mg/mL 10 mL Inj IV SCH ×3 (09:04→20:30)
[2016-07-07] MEDS: 0.9% Sodium Chloride 1,000 ML IV SCH ×2 (09:05→18:25)
[2016-07-07] MEDS: Vancomycin Inj 1,500 MG in 0.9% Sodium Chloride 500 ML IV SCH ×2 (09:05→20:00)
[2016-07-07] MEDS ORDERED: HYDROmorphone 1 mg/mL Inj IVPUSH PRN (10:25)
[2016-07-07] MEDS ORDERED: HYDROmorphone 1 mg/mL Inj IVPUSH ONE (12:55)
--- NOTE | 2016-07-07 13:04 | PCM.PNMED ---
Subjective Date of Service Jul 07, 2016 Subjective Patient was seen and examined at bedside today. Patient denies any chest pain, shortness of breath, nausea, vomiting, diarrhea. Patient complains of left- sided chest pain secondary to infection. Exam Vital Signs Vital Sign - Last Date Time Temp Pulse Resp B/P Pulse Ox O2 Delivery O2 Flow Rate FiO2 07/07/16 06:16 36.3 76 22 99/63 98 Room Air Intake and Output 07/06/16 07/06/16 07/07/16 Cumulative From/Thru 15:00 23:00 07:00 07/06/16 16:20 - 07/07/16 06:20 Intake Total 1000 ml 1000 ml Output Total 500 ml 500 ml Balance 500 ml 500 ml Intake Oral 1000 ml 1000 ml Output Urine Total 500 ml 500 ml # Voids 2 2 # Bowel Movements 0 0 Exam Physical Exam: GEN: Patient was awake, alert, responding appropriately to questions HEENT: PERRLA, EOMI, Neck soft supple, trachea midline, nomocephalic/atraumatic CV: +S1/S2, RRR, no murmur auscultated Respiratory: CTAB, no wheezes, rales, rhonchi GI: +bowel sounds x4, soft, compressible, non TTP EXT: no c/c/e Skin: Left upper trunk sutures in place status post removal of central cath, positive erythema, no edema Neuro: CN II-XII grossly intact Psych: mood and affect were appropriate IVs and Medications Medications Reviewed: Medications were reviewed in detail Lab and Diagnostics Result Diagram: 07/07/16 0540 07/07/16 0540 Microbiology Blood cultures 2 pending X-Rays, CTs and MRIs Chest x-ray performed 07/06/2016 IMPRESSION: No acute disease. Dictated by: Amanda Degroot M.D. on 07/06/2016 at 20:46 12-lead ECG Pending Assessment & Plan 55-year-old woman with chronic pain, previous Groshong catheter placement in place for 3 years, receiving pain medications and antinausea medications times daily presented with catheter insertion site infection, status post abscess drainage. acute sepsis, secondary to central line infection present on admission, treatment initiated -Heart rate 105 on presentation, temperature 36.0, subjective weakenss, identified source infected catheter site mid chest. -White blood cell count 4.6, normal differential white blood cell count currently 3.5 -Lactic acid 0.6 -Continue IV vancomycin and Zosyn -Continue IV fluids, normal saline 100 mL per hour. -Surgery consulted and following -Suture removal today 1 mg IV Dilaudid to be given prior to procedure for pain Acute infected/purulent/abscessed Groshong catheter site, present on admission, treatment ongoing -Blood cultures from outpatient taken 07/04/2016 no growth after 2 days. - Blood cultures obtained and pending results -UA culture pending results - Continue IV vancomycin and Zosyn in the emergency department -Continue Vanc dosed per pharm and zosyn 3.375 q8hrs. IV. for Staph and pseudomonal coverage. Acute hyponatremia, present on admission, treatment initiated -Serum sodium was found to be 132, currently 138 -IV fluids: Normal saline, 100 mL per hour -Follow up CMP in the morning Acute urticarial rash, waxing and waning, present on admission, evaluation and treatment ongoing -Patient was describing itching to her arms, so that this precedes hives which she has been getting every couple of days, unknown source, has scheduled appointment with referral management liaison as an outpatient) does not describe any difficulty breathing, or swelling of her neck, lips, or -- no rash currently present at this time -Patient - Patient states Benadryl does not help will consider prednisone if the patient has a recurrent rashs Chronic esophageal dysmotility/spasm - Continue pain medication and methadone Chronic severe GERD, improved, present on admission -requiring IV promethazine 50 mg every 4 hours and Protonix 40 mg 2 times a day -At this time we are unable to continue the promethazine as we do not have any in stock. Patient was offered Compazine and Zofran however she refused stating that these 2 medications do not work for her. Patient is trying to obtain away for these medications to be brought into her. Once the upper anterior the patient can continue to use his home medications and pharmacy has been contacted. #Chronic stable medical conditions Hypomagnesemia - Check serum magnesium level, replete as necessary Vitamin D deficiency -Continue home medication necessary Disposition: Surgery is currently following the patient. Once the patient's blood cultures have been identified we will adjust the medications as necessary based on cultures and sensitivities. GI Prophylaxis: Proton Pump Inhibitor VTE Prophylaxis: CAROL Gillespie Resuscitation Status: CPR: Attempt Resuscitation Time spent Greater than 35 minutes Renee Huitron DO Jul 07, 2016 13:04
--- NOTE | 2016-07-07 13:34 | NUR ---
Social Work- Initial Assessment Data: See Initial Assessment. Pt is a 55 year old female admitted 07/06/16 for abscess per H&P. Pt's insurance is [employer] and PCP is MD Minor. EMR reviewed. SW met with pt regarding discharge plan, SW role explained. Pt alert and oriented x3. Pt resides alone in [place] where she remains independent with her ADLs. Pt uses a cane at base (due to a recent ankle injury) and drives. Pt has HH history-- pt currently open with [facility]. Pt has SNF history- unable to remember name and states it is closed now. Pt has no LTC or VA benefits. Pt has completed DPOA paperwork on file at [facility]. SW encouraged pt to bring copy to the hospital. Pt's DPOA is Sofia Coon, mother, . Pt has chronic pain which is managed at the pain clinic. Pt to discharge home with resume [facility], mother to transport via POV. SW will continue to follow. Assessment: Pt who [place] independent [place] base and currently open with [facility]. Plan: Pt currently open with [facility]. Pt to discharge home with resume [facility], mother to transport via POV. SW will continue to follow. ARCENIO Avalos Addendum: 07/07/16 at 1341 by VALARIE CARTER SS Amended: Links added.
--- NOTE | 2016-07-07 14:05 | NUR ---
Suture removal 1.5mg total of IVP Dilaudid given prior to suture removal, per Surgeon's orders. Pt tolerated well Applied dry guaze w/ hypafix tape. Bed down and locked, call light w/in reach
[2016-07-07 14:59] VITALS: BP 102/66; PULSE 73; RESP 20; O2SAT 96
--- NOTE | 2016-07-07 16:09 | PROG NOTE ---
[address] [address] PROGRESS NOTE PATIENT: KAYLA LARIOS : 1960 MR#: [id number] ADMIT: 07/06/2016 JOB ID: [id number] DATE: 07/07/2016 The patient is seen one day after having had her Groshong catheter removed. She complains of a great deal of chest pain around the incision sites as well as her chronic abdominal chest pain, that she attributes to a combination of esophageal dysmotility and gastrogastric fistula following a gastric bypass. The patient has mild erythema, but she is tremendously tender, almost with hypesthesia. I have removed the wick from one of the three incisions that is open and there is expressible purulent material in the tract though she has complained of a great deal of pain. I therefore opened up her middle incision as she was also quite tender up along the whole track of the old Groshong but there has been no fluid to express. IMPRESSION AND PLAN: She has a background of chronic pain and is not having acute pain along the track of her Groshong and her incisions. We will remove all of sutures to have the three wounds opened. We will have her clean this out with a Q-Tip with saline and/or get in the shower and wash her chest off at least once a day. She is on appropriate antibiotics, I believe. I have also asked the nurses to facilitate getting her promethazine delivery made to the hospital so that she can take her own medications as this is not available per Pharmacy. In the meantime, I will order some intravenous pain medications as she is not tolerating p.o. pain meds. General Surgery will continue to follow her while she is in the hospital this weekend.
[2016-07-07] MEDS ORDERED: ProchlorPERazine 5 mg/mL 2 mL Inj IVPUSH ONE (16:25)
[2016-07-07] MEDS ORDERED: ProchlorPERazine 5 mg/mL 2 mL Inj IVPUSH PRN (16:25)
[2016-07-07] MEDS: HYDROmorphone 0.5 mg/0.5 mL iSecure Syringe IVPUSH PRN (17:30)
--- NOTE | 2016-07-07 18:32 | NUR ---
IV attempts I attempted 3 times without ultrasound and once with. Each time I was able to enter the vein but not able to advance the catheter or the catheter was advanced then the vein would "blow" when saline was instilled. Angelia Rebollar RN, also from IV Therapy attempted x2, she encountered the same issue with the catheter not advancing and flushing. After Angelia Rebollar second attempt the patient stated that was enough and asked us to stop, which we did. The patients RN was advised of our attempts. The patient still has one IV in place. Luis Schwab RN
[2016-07-07] MEDS ORDERED: Vancomycin Serum Trough XX ONE (19:30)
--- NOTE | 2016-07-07 19:50 | NUR ---
No IV Access Pt complained of pain during administration of IVP medications. IVT called to request an attempt w/o success. Spoke to Hospitalist and unable to place central line at this time due to blood cultures not back. All medications except for abx ordered PO. Patient aware and in agreement with this plan. Bed down and locked, call light w/in reach
[2016-07-07 20:23] VITALS: BP 135/72; PULSE 74; RESP 20; O2SAT 96
[2016-07-07] MEDS: diphenhydrAMINE 25 mg Capsule PO SCH (23:03)
[2016-07-08] MEDS: Sodium Chloride LOK Flush 10 mL Syringe IVFLUSH SCH ×3 (00:30→16:30)
[2016-07-08 00:35] VITALS: BP 108/67; PULSE 67; RESP 20; O2SAT 94
[2016-07-08] MEDS: 0.9% Sodium Chloride 1,000 ML IV SCH ×2 (04:25→18:22)
[2016-07-08] MEDS: Piperacillin-Tazo 3.375 Gm Inj 3.375 GM in Dextrose 5% Minibag Plus 50 ML IV SCH ×3 (04:30→20:30)
[2016-07-08 04:50] VITALS: BP 103/67; PULSE 61; RESP 18; O2SAT 95
[2016-07-08] MEDS: diphenhydrAMINE 25 mg Capsule PO SCH ×4 (05:26→23:59)
[2016-07-08 05:48] LABS: Mean Corpuscular Hemoglobin 25.6 pg (27.0-35.0)
--- NOTE | 2016-07-08 07:42 | NUR ---
Pain Patient receiving PO Dilaudid for pain. Patient states that this is helping to manage her pain well. Patient A&OX3. No IV access at this time. All medications PO accept for Abx. Waiting for blood culture results so that Central line could possibly be placed.
[2016-07-08] MEDS: Vancomycin Dose per Pharmacist XX SCH (08:30)
[2016-07-08] MEDS: Magnesium Chloride SR 64 mg ER24 Tablet PO SCH (09:57)
[2016-07-08] MEDS ORDERED: 0.9% Sodium Chloride 250 ML ONE (12:15)
[2016-07-08] MEDS: Pantoprazole 4 mg/mL 10 mL Inj IV SCH ×2 (12:18→16:39)
[2016-07-08] MEDS: Vancomycin Inj 1,500 MG in 0.9% Sodium Chloride 500 ML IV SCH (12:26)
--- NOTE | 2016-07-08 12:38 | PCM.PNMED ---
Subjective Date of Service Jul 08, 2016 Subjective Patient was seen and examined at bedside today. The patient states that her nausea and vomiting have been under control with oral Benadryl and Compazine which is actually new for her. The patient lost IV access yesterday however she did receive her full dose of antibiotics for yesterday. I personally placed a new peripheral IV in the patient today in order to restart her antibiotics. I was present during the conversation between her and Dr. Nation and he feels that it may benefit the patient to have an endoscopy guided PEG tube placed as opposed to another central access. This will decrease the patient's susceptibility to infection and may be better for the patient in the long run. Because of the patient's symptoms she may need to defer to tube feeding at some time as well. Dr. Nation and I discussed this further onset of the patient room and both of us agree that this most likely will be the best course of action for the patient to have an EGD guided PEG tube placed. Dr. Nation suggested that the patient follow-up with Dr. Alanis for a second opinion as a patient states that she is having difficulties with her current bariatric surgeon. Exam Vital Signs Vital Sign - Last Date Time Temp Pulse Resp B/P Pulse Ox O2 Delivery O2 Flow Rate FiO2 07/08/16 04:50 36.5 61 18 103/67 95 Room Air Intake and Output 07/07/16 07/07/16 07/08/16 Cumulative From/Thru 14:59 22:59 06:59 07/06/16 16:20 - 07/07/16 17:31 Intake Total 839 ml 1839 ml Output Total 450 ml 950 ml Balance 389 ml 889 ml Intake Oral 150 ml 1150 ml IV Total 689 ml 689 ml Output Urine Total 450 ml 950 ml # Voids 3 5 # Bowel Movements 1 1 Exam Physical Exam: GEN: Patient was awake, alert, responding appropriately to questions HEENT: PERRLA, EOMI, Neck soft supple, trachea midline, nomocephalic/atraumatic CV: +S1/S2, RRR, no murmur auscultated Respiratory: CTAB, no wheezes, rales, rhonchi GI: +bowel sounds x4, soft, compressible, non TTP Skin: Tender to palpation in the suture areas on the chest, the areas are nonerythematous and erythema is improved from yesterday sutures have been removed EXT: no c/c/e Neuro: CN II-XII grossly intact Psych: mood and affect were appropriate IVs and Medications Medications Reviewed: Medications were reviewed in detail Lab and Diagnostics Result Diagram: 07/08/16 0510 07/08/16 0510 Microbiology Blood cultures 2 pending X-Rays, CTs and MRIs Chest x-ray performed 07/06/2016 IMPRESSION: No acute disease. Dictated by: Amanda Degroot M.D. on 07/06/2016 at 20:46 12-lead ECG Pending Assessment & Plan 55-year-old woman with chronic pain, previous Groshong catheter placement in place for 3 years, receiving pain medications and antinausea medications times daily presented with catheter insertion site infection, status post abscess drainage. acute sepsis, secondary to central line infection present on admission, treatment initiated -Heart rate 105 on presentation, temperature 36.0, subjective weakenss, identified source infected catheter site mid chest. -White blood cell count 4.6, normal differential white blood cell count currently 3.5 -Lactic acid 0.6 -Continue IV vancomycin and Zosyn -Continue IV fluids, normal saline 100 mL per hour. -Surgery consulted and following -Suture removal 07/07/16 1 mg IV Dilaudid to be given prior to procedure for pain Acute infected/purulent/abscessed Groshong catheter site, present on admission, treatment ongoing -Blood cultures from outpatient taken 07/04/2016 no growth after 2 days. - Blood cultures obtained and pending results currently negative 24 hours -UA culture negative - Continue IV vancomycin and Zosyn in the emergency department -Continue Vanc dosed per pharm and zosyn 3.375 q8hrs. IV. for Staph and pseudomonal coverage. Acute hyponatremia, present on admission, treatment initiated -Serum sodium was found to be 132, currently 138 -IV fluids: Normal saline, 100 mL per hour -Follow up CMP in the morning Acute urticarial rash, waxing and waning, present on admission, evaluation and treatment ongoing -Patient was describing itching to her arms, so that this precedes hives which she has been getting every couple of days, unknown source, has scheduled appointment with integrity director as an outpatient) does not describe any difficulty breathing, or swelling of her neck, lips, or -- no rash currently present at this time -Patient - Patient states Benadryl does not help will consider prednisone if the patient has a recurrent rashs Chronic esophageal dysmotility/spasm - Continue pain medication and methadone Chronic severe GERD, improved, present on admission -requiring IV promethazine 50 mg every 4 hours and Protonix 40 mg 2 times a day -At this time we are unable to continue the promethazine as we do not have any in stock. Patient was offered Compazine and Zofran however she refused stating that these 2 medications do not work for her. Patient is trying to obtain away for these medications to be brought into her. Once the upper anterior the patient can continue to use his home medications and pharmacy has been contacted. #Chronic stable medical conditions Hypomagnesemia - Check serum magnesium level, replete as necessary Vitamin D deficiency -Continue home medication necessary Disposition: The patient lost IV access yesterday however received her full days dose of antibiotics. It was decided that since the patient had 9 attempts to replace another peripheral axis line that we should hold off until today. I personally placed a 20-gauge IV access and the patient's right forearm. I personally spoke with Dr. Nation today who feels that the patient would most benefit from having a PEG tube placed in order to feed the promethazine and Protonix through the PEG tube as opposed to central access. As the patient is more prone to infection this may be a way to decrease the patient's risk of infection. The patient has been given the name of Dr. Alanis who is a bariatric surgeon who can also potentially do this particular surgery however the patient can also follow up with her GI doctor who could potentially do this as well. The patient is in agreement with this and will continue her IV antibiotics and await the final results of the blood cultures. Patient seems to be tolerating the Benadryl and Compazine combination well. GI Prophylaxis: Proton Pump Inhibitor VTE Prophylaxis: SCDs, CAROL Hammer VTE Mechanical Devices: Intermittant Pneumatic CD Resuscitation Status: CPR: Attempt Resuscitation Time spent Greater than 40 minutes Renee Huitron DO Jul 08, 2016 12:38
[2016-07-08 13:48] VITALS: BP 142/86; PULSE 71; RESP 18; O2SAT 98
--- NOTE | 2016-07-08 13:50 | NUR ---
HYACINTH signed. Jessy Koch PENSION ADVISER
--- NOTE | 2016-07-08 17:00 | CONS ---
[address] [address] CONSULTATION REPORT PATIENT: KAYLA LARIOS : 1960 MR#: [id number] ADMIT: 07/06/2016 JOB ID: [id number] DATE OF SERVICE: 07/08/2016 I have been following the patient in the postop period for her Groshong catheter removal by Drs. Carlton and Saturnino. Her wound is cleaning up, without cellulitis and without accumulated pus. I am still a bit surprised at how tender her left chest wall is, though I believe some of this is related to her chronic pain. Consultation is regarding her GI problems and regarding discussions as to whether a Groshong catheter or Port-A-Cath should be placed. Further history that I have obtained from the patient is that she underwent a laparoscopic gastric bypass at the [facility] in 2008. At that time, she weighed roughly 400 pounds. She had known esophageal dysmotility and it was felt that this was related to her intractable GERD. She reports being given a 50/50 chance that gastric bypass would improve her esophageal dysmotility. Her esophageal dysmotility, however, did not improve and has continued to progressively worsen. She got down to roughly 135 pounds, and then just a few years ago, developed unrelenting epigastric pain that was different than her esophageal spasm, and then began gaining weight quite rapidly up to her current weight of 200 pounds. 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 She tells me that her GI doctor has been able to advance the endoscope into her distal gastric remnant. She did have a feeding tube for a while in the distal gastric remnant but that has been removed. There may also have been an interval laparoscopic operation for either ulcer or perforation. At this point, she says her bariatric surgeon has been relatively dismissive of her questions and is not interested in addressing the gastrogastric fistula. She clearly reports two different types of pain, and one being attributed to her gastrogastric fistula. On examination, she does have evidence of an old percutaneous gastrostomy site with some puckering. I only see laparoscopic incisions and no laparotomy incision, so presumably all of her operations have been done laparoscopically. IMPRESSION AND PLAN: This is a very pleasant, 55-year-old woman with complex gastrointestinal problems. She uses her Groshong catheter solely to obtain intravenous promethazine and intravenous pantoprazole that allows her to eat. Her eating has gotten progressively worse. It seems to me that if all she needs is a nonoral route to get pantoprazole and promethazine to allow her to eat, that it makes more sense for her to have a gastrostomy feeding tube in her distal stomach, particularly given the fact that her eating is getting harder and she may well progress to the point where she simply needs nutrition by the distal gastric remnant. I am also a bit surprised that if she does have chronic pain that is associated with this gastrogastric fistula, that there has not been some consideration to surgically addressing this. She should not be having pain when she has ongoing active ulcer disease and it seems to be a very reasonable thing to try to address her gastrojejunostomy stenosis with a balloon dilation and to take down this gastrogastric fistula. Much of this would depend on the size of her pouch remnant, the size of her distal gastric remnant, and the anatomy of the fistula. I have told her that my recommendation is I will pass on to my partners that I would recommend a PEG rather than a repeat Groshong catheter or a Port-A-Cath. She does have an appointment with her GI doctor at the [facility] next week and I have suggested that she pass on my recommendations to him. She should be seen again by the bariatric surgeons or I have given her other bariatric surgery options if she does not feel that she has a good rapport with her old surgeon. I have acknowledged to her that her situation is quite complex given her esophageal dysmotility and what she reports as generalized GI tract dysmotility. I have also passed on my recommendations to Dr. Huitron, the hospitalist. General Surgery will continue to follow her for her Groshong catheter removal, as well as any other GI problems that we can help with.
--- NOTE | 2016-07-08 19:30 | NUR ---
Antibiotics/IV/Nausea MD was able to secure IV access today, but antibiotics are all mistimed due to not having an IV and then having 2 antibiotics to give. Vancomycin was started at 150ml/hr and pt was tolerating, so increased to prescribed 333ml/hr, but pt had increasing discomfort and was anxious that IV would go bad and she would have to be re-stuck multiple times. No redness or rash noted with antibiotics. Pt had increasing nausea at end of shift and vomited once, but declined to have IV Zofran.
[2016-07-08 20:32] VITALS: BP 129/75; PULSE 65; RESP 18; O2SAT 96
[2016-07-09] MEDS: Pantoprazole 4 mg/mL 10 mL Inj IV SCH ×4 (00:07→22:20)
[2016-07-09] MEDS: 0.9% Sodium Chloride 1,000 ML IV SCH ×3 (00:25→20:39)
[2016-07-09] MEDS: Sodium Chloride LOK Flush 10 mL Syringe IVFLUSH SCH ×3 (00:30→17:04)
[2016-07-09] MEDS: Vancomycin Inj 1,500 MG in 0.9% Sodium Chloride 500 ML IV SCH (00:30)
[2016-07-09] MEDS: Piperacillin-Tazo 3.375 Gm Inj 3.375 GM in Dextrose 5% Minibag Plus 50 ML IV SCH (04:30)
--- NOTE | 2016-07-09 04:37 | NUR ---
IV infiltrated 0330 IV Vanco infusing at the time of infiltration with rate only at 100ml/hr. site tender / pink. Dose of Vanco not completed and will need to be retimed when IV access gained. Will notify IVT at 629 of failed site.
[2016-07-09 05:20] VITALS: BP 105/68; PULSE 57; RESP 18; O2SAT 97
[2016-07-09] MEDS: diphenhydrAMINE 25 mg Capsule PO SCH ×4 (05:22→23:22)
--- NOTE | 2016-07-09 05:31 | PCM.PNMED ---
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 Gets IV nausea and PPI at home to keep going. Now had to have her groshong catheter taken out as it got infected. Blood cx are negative so far. She is on vanc and zosyn since . She states she is feeling a lot better, she would like to follow up with her own GI, in the bariatric surgeon general surgery referred her to in the near future. She is wondering if she could get a port until then. She states that she took good care of her catheter. 3-1/2 years. She understands that her bariatric surgery at this point is not helping her as it reversed itself because of her fistula. She complains of several issues including a rash that comes and goes, periodic cough, pain in her left ankle. She has no issues with constipation. Exam Vital Signs Vital Sign - Last Date Time Temp Pulse Resp B/P Pulse Ox O2 Delivery O2 Flow Rate FiO2 07/09/16 05:20 36.7 57 18 105/68 97 Room Air Intake and Output 07/08/16 07/08/16 07/09/16 Cumulative From/Thru 15:00 23:00 07:00 07/06/16 16:20 - 07/08/16 18:30 Intake Total 739 ml 1028 ml 3606 ml Output Total 400 ml 400 ml 1750 ml Balance 339 ml 628 ml 1856 ml Intake Oral 739 ml 320 ml 2209 ml IV Total 708 ml 1397 ml Output Urine Total 400 ml 400 ml 1750 ml # Voids 2 7 # Bowel Movements 1 2 Exam Eyes: Sunflower conjunctivae. No ptosis, PERRL Neck: No masses, trachea midline, no thyromegaly Lungs: CTA with normal respiratory effort CV: RRR, no murmurs/rubs/gallops, normal PMI GI: Soft, non-tender with no hepatosplenomegaly MSK: no digital cyanosis Skin: Warm and dry. Psych: A&O X3, with approprate affect Skin: Rash on catheter site appears clean without Purulence. Healed scar from old PEG tube over top of her abdomen Neuro no focal deficits Lab and Diagnostics Laboratory Tests Test 07/09/16 05:45 White Blood Count 3.2th/mm3 (3.8-10.1) Red Blood Count 3.81mil/mm3 (3.90-5.20) Hemoglobin 10.1g/dL (12.0-15.6) Hematocrit 32.3% (35.0-46.0) Mean Corpuscular Volume 84.8fL (81-100) Mean Corpuscular Hemoglobin 26.5pg (27.0-35.0) Mean Corpuscular Hemoglobin Concent 31.3% (32.0-37.0) Red Cell Distribution Width 14.4% (12.3-15.4) Platelet Count 297bil/L (150-400) Neutrophils (%) (Auto) 39.4% (40-74) Lymphocytes (%) (Auto) 49.5% (14-46) Monocytes (%) (Auto) 11.1% (4-12) Eosinophils (%) (Auto) 0% (0-5) Basophils (%) (Auto) 0% (0-3) Sodium Level 139mEq/L (134-144) Potassium Level 4.0mEq/L (3.5-5.2) Chloride Level 104mEq/L (97-108) Carbon Dioxide Level 24mmol/L (18-29) Blood Urea Nitrogen 6mg/dL (6-24) Creatinine 0.48mg/dL (0.57-1.00) Estimat Glomerular Filtration Rate 193mL/min (>59) Glucose Level 98mg/dL (60-99) Calcium Level 8.3mg/dL (8.5-10.1) Total Bilirubin 0.2mg/dL (0.0-1.2) Aspartate Amino Transf (AST/SGOT) 12U/L (0-50) Alanine Aminotransferase (ALT/SGPT) 12U/L (0-32) Alkaline Phosphatase 101U/L (25-150) Total Protein 5.2g/dL (6.4-8.4) Albumin 3.1g/dL (3.4-5.0) Microbiology 07/06/16 Blood Culture - Preliminary, Resulted No growth at 2 days; culture examined... 07/07/16 Urine Culture - Final, Complete No growth (<1,000 organisms/mL) Result Diagram: 07/08/16 0510 07/08/16 6895 Microbiology Blood cultures 2 pending X-Rays, CTs and MRIs Chest x-ray performed 07/06/2016 IMPRESSION: No acute disease. Dictated by: Amanda Degroot M.D. on 07/06/2016 at 20:46 12-lead ECG Pending Assessment & Plan 55-year-old woman with chronic pain, previous Groshong catheter placement in place for 3 years, receiving pain medications and antinausea medications times daily presented with catheter insertion site infection, status post abscess drainage. She is currently getting her medications via an IV acute sepsis, secondary to central line infection present on admission, treatment initiated -Heart rate 105 on presentation, temperature 36.0, subjective weakens, identified source infected catheter site mid chest: Groshong catheter was removed -She was initially managed on Vanco and Zosyn. Both of these were discontinued today. Her blood cultures are negative to date day #3( -ID is consulted, they gave her dalbivancin: We appreciate their recommendations. They recommend holding putting in any lines into her at this time. Continued monitoring is recommended -Stopped her fluids -Surgery consulted: They feel that PICC line may be a better option. We will hold putting in lines until we are sure her infection has cleared as her I and D resulted in fairly purulent discharge per general surgery Acute infected/purulent/abscessed Groshong catheter site, present on admission, treatment ongoing -Blood cultures from outpatient taken 07/04/2016 no growth to date - Blood cultures obtained and pending results currently no growth to date -UA culture negative - Antibiotics as above Acute hyponatremia, present on admission: Resolved -Continue to monitor with daily labs - Acute urticarial rash, waxing and waning, present on admission, evaluation and treatment ongoing -Patient was describing itching to her arms, so that this precedes hives which she has been getting every couple of days, unknown source, has scheduled appointment with theatrical dresser as an outpatient) does not describe any difficulty breathing, or swelling of her neck, lips, or -- no rash currently present at this time -will consider prednisone if the patient has a recurrent rashs Chronic esophageal dysmotility/spasm - Continue pain medication and methadone Chronic severe GERD, improved, present on admission -At this time we are unable to continue the promethazine as we do not have any in stock. Continue Compazine and Zofran. #Chronic stable medical conditions Hypomagnesemia - Check serum magnesium level, replete as necessary Vitamin D deficiency -Continue home medication necessary Disposition: Per ID patient needs to be monitored for a few more days prior to giving her a solution for her issue with needing IV medications GI Prophylaxis: Proton Pump Inhibitor VTE Prophylaxis: CAROL Gillespie VTE Mechanical Devices: Intermittant Pneumatic CD Resuscitation Status: CPR: Attempt Resuscitation Deborah Ta DO Jul 09, 2016 05:31
[2016-07-09 06:15] LABS: BASOPHILS % (AUTO) 0 % (0-3); EOSINOPHILS % (AUTO) 0 % (0-5); MONOCYTES % (AUTO) 11.1 % (4-12); Mean Corpuscular Hemoglobin 26.5 pg (27.0-35.0); Mean Corpuscular Volume 84.8 fL (81-100); NEUTROPHILS % (AUTO) 39.4 % (40-74); Platelet Count 297 bil/L (150-400)
[2016-07-09] MEDS: Magnesium Chloride SR 64 mg ER24 Tablet PO SCH (10:32)
[2016-07-09 12:10] VITALS: BP 144/83; PULSE 70; RESP 18; O2SAT 98
[2016-07-09] MEDS ORDERED: Trimethoprim-Sulfa 160 mg-800 mg Tablet PO SCH (13:30)
--- NOTE | 2016-07-09 15:10 | DRSVH ---
PROCEDURE: X-RAY LEFT FOOT COMPLETE, MINIMUM THREE VIEWS ([id number]) INDICATIONS: pain, swelling TECHNIQUE: 3 views of the foot were acquired. COMPARISON: [facility], CR, XR FOOT 3VW LT, 06/09/2016, 11:49. FINDINGS: Bones: No fractures or dislocations. No suspicious bony lesions. Mild facet joint degeneration wit h prominent dorsal osteophytes. Calcaneal spurring. Soft tissues: No tibiotalar joint effusion. Achilles tendon appears normal. IMPRESSION: No displaced fracture seen. If there is continued pain, followup exam or additional vick ging such as MRI or CT could be performed for further assessment. Dictated by: Dennys Malhotra RRA Interpreted: Jeanne Garcia MD on 07/09/2016 at 15:09 Transcribed by: MAGED on 07/09/2016 at 15:10 Approved by: Jeanne Garcia MD, PhD on 07/09/2016 at 16:35
[2016-07-09] MEDS ORDERED: Vancomycin Serum Trough XX ONE (19:30)
--- NOTE | 2016-07-09 19:34 | NUR ---
Pain/IV Pt anxious at start of shift when IV therapy present to start PIV. Tearful, stating she is hard IV start. C/o pain, but states chronic pain issues. Taking medications as prescribed. Aware of schedule. Tolerating. Pain never <5/10. IVF maintaining. Pt thankful that IV abx discontinued (Vanco/Zosyn) d/t poor iv access. Using Kpad to IV to help make it last longer. At change of shift, pt stating feeling like the iv is about to go bad. NOC RN made aware of the need to get IV abx in this evening prior to loss of IV access. Care continues.
[2016-07-09] MEDS: Dalbavancin Inj 1,500 MG in Dextrose 5% 500 ML IV ONE ×2 (19:49→21:20)
--- NOTE | 2016-07-09 19:56 | PROG NOTE ---
[address] [address] PROGRESS NOTE PATIENT: KAYLA LARIOS : 1960 MR#: [id number] ADMIT: 07/06/2016 JOB ID: [id number] DATE: 07/09/2016 The patient was seen previously by my partners, Dr. Sal Matamoros and by Dr. Pito Nation. Dr. Matamoros removed an infected Groshong catheter and when he did so, pus ran out of the tract. The recommendation based on that was to delay placement of a permanent indwelling central venous catheter for a week. She was seen yesterday by Dr. Pito Nation who has recommended that a percutaneous gastrostomy be considered for delivering her medications. I was called today with questions about placing a Port-A-Cath tomorrow. I have met with the patient. I did explain that a Port-A-Cath that is not appropriate for daily use. I also have recommended a PICC line as a temporary intravenous access and then in a week or so placement of another Groshong catheter. The patient is upset about this, but Port-A-Cath is simply not used for daily use.
[2016-07-09 20:09] VITALS: BP 128/80; PULSE 67; RESP 18; O2SAT 93
[2016-07-09] MEDS ORDERED: Dextrose 5% 500 ML ONE (21:16)
--- NOTE | 2016-07-09 23:19 | CONS ---
[address] [address] CONSULTATION REPORT PATIENT: KAYLA LARIOS : 1960 MR#: [id number] ADMIT: 07/06/2016 JOB ID: [id number] DATE OF SERVICE: 07/09/2016 INFECTIOUS DISEASE CONSULTATION: I thank Dr. Ta for this timely consult. REASON FOR CONSULTATION: MSSA Groshong tunnel infection. HISTORY OF PRESENT ILLNESS: The patient is an extremely unfortunate 55-year-old woman with longstanding esophageal dysmotility issues, as well as morbid obesity. In 2008, she underwent a gastric bypass in the hopes of correcting both her morbid obesity, as well as her esophageal dysmotility syndrome. The morbid obesity improved in that she lost over half of her body weight, but her esophageal dysmotility continued to be a tremendous problem and she required constant central access for PPIs and antiemetic agents, which she takes by her report "around the clock." She has suffered a wide variety of infections secondary to central lines, including bacteremias due to coag-negative staph and Klebsiella, and fungemia secondary to Valerie lusitaniae and Valerie parapsilosis. At one point, a G-tube was tried in lieu of the central access but she developed recurrent infections and acid li around the exit site of the gastric tube, and so she eventually was switched back to IVs. The last three and half years she has not had any central line infections with her Groshong and this is the longest infection free period she has had in the last eight years or so. That ended about a week or ten days ago when she developed tenderness along the tunnel of the Groshong. An initial attempt to treat this with oral Keflex was unsuccessful and she developed a large abscess near the exit site of the Groshong. She required three separate incisions to drain purulent material from along the tract of the Groshong and the Groshong was pulled by Dr. Jay Matamoros back on July 06, three days ago. Following that surgery on July 06, the patient was admitted to this facility and has been receiving antibiotics. The antibiotics initially consisted of vancomycin and Zosyn while cultures were being anticipated. Unfortunately, there was constant problems with peripheral IVs as the patient has really no consistent veins of any kind, and so today the patient was switched to oral Bactrim. She has had one tab of the oral Bactrim and so far is tolerating. Throughout this 10 day or so episode of infection along the Groshong tract, the patient has not had any fevers, chills or sweats. She reports likewise she has not had any significant headache, cough, shortness of breath, chest pain or worsening of her chronic GI symptoms. PAST MEDICAL HISTORY: 1. Esophageal dysmotility syndrome requiring constant IV PPIs and antiemetics. 2. 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 3. Multiple central catheter infections. 4. History of multiple DVTs with PICC lines in the past. SOCIAL HISTORY: The patient lives by herself on [address]. She is able to take care of herself despite her very complex medical situation. She is unable to work, however, obviously due to these multiple problems. She does not smoke, nor does she consume alcohol. FAMILY HISTORY: The patient is adopted and has no relevant family history. REVIEW OF SYSTEMS: At this point, the patient has no headache. She denies visual complaints. No sore throat. She has the dysmotility which is a chronic problem and requires ongoing medication, but she is able to keep up her nutritional needs by the oral route as long as she has access to her medicines. No current chest pain. No cough, shortness of breath, chest pain, nausea, vomiting, or diarrhea. The patient does have pain along her left chest at the site where the Groshong was extracted last week. She also has recently suffered an ankle injury on the left which she reports is either a sprain or fracture, she is not sure which. She had an x-ray done earlier today though suggests no fracture, and she did have an x-ray two weeks ago as well which showed chronic cortical irregularity along the navicular bone. There has been no recent report of skin rash. The remainder of the review of systems is negative. PHYSICAL EXAMINATION: Reveals a chronically ill-appearing woman. Temperature 36.7. She has been afebrile since admission. Pulse 70, respiratory rate 18, blood pressure 144/83. She is saturating well on room air. Examination of her mental status reveals it to be clear. Head without trauma. Eyes without conjunctivitis. The oral cavity: No thrush or hairy leukoplakia. The neck is without adenopathy, and supple. Lungs: Relatively clear. There are three small incisions present along the left upper chest which correspond to the small incisions that were made to drain purulence from around the Groshong that was subsequently pulled. Cardiac tones: Regular rate and rhythm. No appreciable murmur. Abdomen: Soft and without tenderness. No organomegaly is appreciated. The patient does not have a Tariq catheter. No skin rash is appreciated. Her left ankle is moderately tender to palpation around the ankle joint itself, but she does have full range of motion of both ankles. There is no significant peripheral edema. There are some changes consistent with venous stasis on both lower extremities. Neurologically: The patient is entirely intact. LABORATORIES: Include white count of 3200, hematocrit 32, platelets 297. Creatinine 0.48. LFTs are normal. Albumin 3.1. Urinalysis 6-10 white cells. Micro includes the positive culture that was done when the catheter was removed and shows MSSA sensitive to all standard antibiotics; that was done in the outpatient surgical setting here at [facility]. A Staph aureus was isolated back in 2012, which was also relatively susceptible MSSA, resistant only to penicillin. Blood cultures from July 06 are negative and urine is likewise negative. IMAGING: Includes the x-ray of the ankle which shows no fracture, and a chest x-ray that shows no acute disease. 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 The literature on central line infection shows while exit site infections can sometimes be cured, that tunnel infections are never cured without removal, and so I agree completely with the decision to remove this Groshong catheter, which the patient had already had three and half years. When a central catheter is infected and the local cultures are positive, but the blood cultures are negative, most experts, including the Infectious Diseases Society of [place] guidelines, recommend a week or so of aggressive therapy. While I think that the Bactrim might be adequate in this circumstance, it would probably need to be relatively high dose and I suspect it will be poorly tolerated in this unfortunate woman. Likewise, her veins are extremely poor and we currently do not have really any dependable IV access at all, so I think that there are relatively few good options here. Oral tetracyclines would of course be a disaster in a patient with esophageal dysmotility. Though it is inexpensive agent and I am reluctant to use it freely, I think that a single dose of dalbavancin would be an excellent option here. This would complete more than a week of IV therapy for her infected Groshong and would clear the way for placement of additional lines as needed in the near future. We did discuss frankly with the patient the incredible risk she takes by continuing to have central IV access. The patient has already had at least five potentially life-threatening intravascular infections secondary to these indwelling lines. The patient tells us that the G-tube she had earlier was not great either and that it was locally infected and problematic, but I am very concerned about the continuing central line issue in this unfortunate patient. RECOMMENDATIONS: 1. Will stop the Septra. 2. Dalbavancin 1.5 g x1 will be given today. 3. Will follow up tomorrow, but I think that we will soon be signing off here as the single dose of dalbavancin should be more than adequate for this process and will spare the patient the need for any additional acute antibiotic access.
[2016-07-10] MEDS: Sodium Chloride LOK Flush 10 mL Syringe IVFLUSH SCH ×4 (00:30→23:28)
--- NOTE | 2016-07-10 03:48 | NUR ---
Pain/Anxiety Patient states pain in chest area, abdomen, and left ankle at a 9/10 on pain scale. Very concerned that the foot x-ray on 07/09 missed an ankle fracture. Ankle is swollen on posterior side. Patient also states that Methadone and Dilaudid will take care of pain for only for a short time. Patient re-assured that pain re-assessment will be completed. Patient talks fast and switches subjects which might indicated anxiety related to pain or/and current situation. Patient stated that she is anxious about possible PICC insertion in the morning. On re-assessment, patient sleeping . Call light is within reach. Care continues.
[2016-07-10] MEDS: diphenhydrAMINE 25 mg Capsule PO SCH ×4 (05:10→22:56)
--- NOTE | 2016-07-10 05:51 | PCM.PNMED ---
Subjective Date of Service Jul 10, 2016 Subjective Patient is seen and examined. She states that she would really like her Phenergan for her nausea control and that she would like to be discharged to home with a PICC line. She is also stating that because of increased discomfort due to several needle sticks for blood draws she would like to be completely under general anesthesia for the procedure. Yesterday she was seen by Dr. Abbasi and was given Dalbivancin one-time dose she tolerated well. She is notified of her foot x-ray findings. She states that she cannot take NSAIDs for pain because of her gastric reflux issues and does not tolerate gabapentin. Because even though she does not like to she ends up being on the narcotics. Other concerns today Exam Vital Signs Vital Sign - Last Date Time Temp Pulse Resp B/P Pulse Ox O2 Delivery O2 Flow Rate FiO2 07/09/16 20:09 36.1 67 18 128/80 93 Room Air Intake and Output 07/09/16 07/09/16 07/10/16 Cumulative From/Thru 15:00 23:00 07:00 07/06/16 16:20 - 07/09/16 18:53 Intake Total 520 ml 1130 ml 5591 ml Output Total 500 ml 500 ml 2750 ml Balance 20 ml 630 ml 2841 ml Intake Oral 520 ml 1000 ml 3729 ml IV Total 130 ml 1862 ml Output Urine Total 500 ml 500 ml 2750 ml # Voids 7 # Bowel Movements 2 4 Exam Gen.: No acute distress HEENT: Normocephalic atraumatic Neck: Negative for masses, trachea central without deviation Heart: Regular rate and rhythm no S3-S4 murmurs Lungs clear to auscultation no crackles or wheezes Abdomen nondistended Psych: Negative for anxiety Neuro: No focal deficits IVs and Medications IV Fluids None Medications Reviewed: Medications were reviewed in detail Lab and Diagnostics Laboratory Tests Test 07/10/16 02:25 07/10/16 07:15 Iron Level 35ug/dL (35-150) Total Iron Binding Capacity 246ug/dL (250-450) Percent Iron Saturation 14%sat (15-50) Unsaturated Iron Binding 210.8ug/dL Ferritin 61ng/mL (13-150) White Blood Count 2.9th/mm3 (3.8-10.1) Red Blood Count 3.72mil/mm3 (3.90-5.20) Hemoglobin 9.8g/dL (12.0-15.6) Hematocrit 31.6% (35.0-46.0) Mean Corpuscular Volume 84.9fL (81-100) Mean Corpuscular Hemoglobin 26.3pg (27.0-35.0) Mean Corpuscular Hemoglobin Concent 31.0% (32.0-37.0) Red Cell Distribution Width 14.4% (12.3-15.4) Platelet Count 286bil/L (150-400) Neutrophils (%) (Auto) 50.7% (40-74) Lymphocytes (%) (Auto) 37.8% (14-46) Monocytes (%) (Auto) 11.2% (4-12) Eosinophils (%) (Auto) 0% (0-5) Basophils (%) (Auto) 0% (0-3) Sodium Level 140mEq/L (134-144) Potassium Level 4.7mEq/L (3.5-5.2) Chloride Level 105mEq/L (97-108) Carbon Dioxide Level 24mmol/L (18-29) Blood Urea Nitrogen 4mg/dL (6-24) Creatinine 0.55mg/dL (0.57-1.00) Estimat Glomerular Filtration Rate 165mL/min (>59) Glucose Level 90mg/dL (60-99) Calcium Level 8.0mg/dL (8.5-10.1) Total Bilirubin 0.2mg/dL (0.0-1.2) Aspartate Amino Transf (AST/SGOT) 20U/L (0-50) Alanine Aminotransferase (ALT/SGPT) 10U/L (0-32) Alkaline Phosphatase 93U/L (25-150) Total Protein 4.9g/dL (6.4-8.4) Albumin 2.8g/dL (3.4-5.0) Microbiology 07/06/16 Blood Culture - Preliminary, Resulted No growth at 2 days; culture examined... 07/07/16 Urine Culture - Final, Complete No growth (<1,000 organisms/mL) Result Diagram: 07/09/16 0545 07/09/16 0545 Microbiology Blood cultures 2 are negative to date X-Rays, CTs and MRIs Chest x-ray performed 07/06/2016 IMPRESSION: No acute disease. Dictated by: Amanda Degroot M.D. on 07/06/2016 at 20:46 [facility] Diagnostic Imaging Department [place], [place] [id number] Patient Name: KAYLA LARIOS MR#: [id number] Location: [facility] Ordering Phys: Deborah Ta DO Date of Service: 07/09/16 1331 PROCEDURE: X-RAY LEFT FOOT COMPLETE, MINIMUM THREE VIEWS ([id number]) INDICATIONS: pain, swelling TECHNIQUE: 3 views of the foot were acquired. COMPARISON: [facility], CR, XR FOOT 3VW LT, 06/09/2016, 11:49. FINDINGS: Bones: No fractures or dislocations. No suspicious bony lesions. Mild facet joint degeneration with prominent dorsal osteophytes. Calcaneal spurring. Soft tissues: No tibiotalar joint effusion. Achilles tendon appears normal. IMPRESSION: No displaced fracture seen. If there is continued pain, followup exam or additional imaging such as MRI or CT could be performed for further assessment. Dictated by: Dennys Malhotra RRA Interpreted: Jeanne Garcia MD on 07/09/2016 at 15:09 Transcribed by: MAGED on 07/09/2016 at 15:10 Approved by: Jeanne Garcia MD, PhD on 07/09/2016 at 16:35 Assessment & Plan 55-year-old woman with chronic pain, previous Groshong catheter placement in place for 3 years, receiving pain medications and antinausea medications times daily presented with catheter insertion site infection, status post abscess drainage. She is currently getting her medications via an IV acute sepsis, secondary to central line infection present on admission, treatment initiated: Resolved -Heart rate 105 on presentation, temperature 36.0, subjective weakens, identified source infected catheter site mid chest: Groshong catheter was removed -She was initially managed on Vanco and Zosyn. Both of these were discontinued today. Her blood cultures are negative to date day #3( -ID is consulted, they gave her dalbivancin: We appreciate their recommendations. They recommend holding putting in any lines into her at this time. Continued monitoring is recommended. A target date of Saturday for PICC line insertion. We plan to check her catheter site daily for any signs of infection. This plan was communicated to surgery. They will consider anesthesia Gen. per the procedure if possible. Patient is agreeable to this plan Acute infected/purulent/abscessed Groshong catheter site, present on admission, treatment ongoing -Blood cultures from outpatient showed no growth to date - Blood cultures obtained and pending results currently no growth to date -UA culture negative -- Antibiotics as above Acute hyponatremia, present on admission: Resolved -Continue to monitor with daily labs - Acute urticarial rash, waxing and waning, present on admission, evaluation and treatment ongoing -Patient was describing itching to her arms, so that this precedes hives which she has been getting every couple of days, unknown source, has scheduled appointment with [facility] as an outpatient) does not describe any difficulty breathing, or swelling of her neck, lips, or -- no rash currently present at this time -will consider prednisone if the patient has a recurrent rashs Chronic esophageal dysmotility/spasm - Continue pain medication and methadone Chronic severe GERD, improved, present on admission -At this time we are unable to continue the promethazine as we do not have any in stock. Continue Compazine and Zofran. He checked with pharmacy in today they still do not have an expected date as to when they will get the supply Right foot pain: X-ray was done yesterday showed several bony spurs several bony spurs. Patient declined treatment options at this time. We will consider Lidoderm patch. #Chronic stable medical conditions Hypomagnesemia - replete as necessary Vitamin D deficiency -Continue home medication necessary Disposition: Per ID patient needs to be monitored for a few more days prior to giving her a solution for her issue with needing IV medications GI Prophylaxis: Proton Pump Inhibitor VTE Prophylaxis: SCDsCAROL VTE Mechanical Devices: Intermittant Pneumatic CD Resuscitation Status: CPR: Attempt Resuscitation Deborah Ta DO Jul 10, 2016 05:51
[2016-07-10 06:31] VITALS: BP 106/71; PULSE 61; RESP 16; O2SAT 97
[2016-07-10 07:27] LABS: BASOPHILS % (AUTO) 0 % (0-3); EOSINOPHILS % (AUTO) 0 % (0-5); MONOCYTES % (AUTO) 11.2 % (4-12); Mean Corpuscular Hemoglobin 26.3 pg (27.0-35.0); Mean Corpuscular Volume 84.9 fL (81-100); NEUTROPHILS % (AUTO) 50.7 % (40-74); Platelet Count 286 bil/L (150-400)
[2016-07-10] MEDS: 0.9% Sodium Chloride 1,000 ML IV SCH ×2 (07:27→17:28)
[2016-07-10 08:26] LABS: Unsaturated Iron Binding 210.8 ug/dL
[2016-07-10] MEDS: Magnesium Chloride SR 64 mg ER24 Tablet PO SCH (10:24)
[2016-07-10] MEDS: Pantoprazole 4 mg/mL 10 mL Inj IV SCH ×3 (10:26→20:16)
--- NOTE | 2016-07-10 11:41 | NUR ---
NUTRITION ASSESSMENT: ASSESS: 55YO F admit with central line infection, pain/anxiety and reports nausea. Pt with poor oral intake 2/2 nausea. Per pt current General diet is okay, no problems chew/swallowing foods. PMHX:GERD,Chronic esophageal dysmotility DIET: General. PO 10-25% LABS: Alb 2.8 MEDS: Reviewed GI: -- SKIN: Jonn 18 WEIGHT:93.0kg, Admit: 91.0kg BMI 32.0 EST.NEEDS: OBESITY Kcal: 3551-9384 Pro: 70-90g NUTRITION DIAGNOSIS: (1) Inadequate oral intake related to nausea as evidenced by po intake of 10-25% x 4 days. INTERVENTION: (1) Spoke with pt at length re meal/supplement options. Gelatein/Magic cups added to meal trays. MONITOR/EVALUATE: Diet tolerance, po intake, labs, GI status. Follow-up per moderate risk.
--- NOTE | 2016-07-10 11:46 | NUR ---
Anxiety re: IV placement Pt anxious over the plan for having a PICC line placed. At start of shift, pt had made herself NPO and requesting that this RN speak with re: sedation for this procedure as she has had PICC placements in the past, stating "they tried three times on this arm and three times of this arm (Left and Right) and I know I have bad veins.." tearful over the thought of them not being able to gain access the first time around and "I would really like to not be aware of that all." This RN spoke with MD re: PICC and informed that per ID pt not going to have PICC placed or any other line at this point in time. Pt then informed of updated plan of no PICC placement and that pt will not be dc'd to home today. Pt again tearful and anxious re: having to stay in hospital. Continue with medications for nausea. Pt talkative and calmed down after being able to vent and tell stories to occupy herself. Pt calm at this time and pleasant. Ongoing issues with nausea. Care continues.
--- NOTE | 2016-07-10 13:47 | NUR ---
Social Work- Continued D/C Planning Data: EMR reviewed. Pt is on day 4 of hospitalization for abscess per H&P. Pt continues to be followed by ID. Pt is not medically stable, anticipate discharge in 2-3 days. JOSE received call from Cathy at [facility] [phone] regarding pt's discharge plan. SW provided update. Pt to discharge home with resume [facility], mother to transport via POV. SW will continue to follow. Assessment: Pt who is independent at base and currently open with [facility]. Plan: Pt currently open with [facility] services. Pt to discharge home, resume [facility], mother to transport via POV. SW will continue to follow. Jessy Koch MSW
[2016-07-10 14:58] VITALS: BP 103/66; PULSE 53; RESP 16; O2SAT 96
--- NOTE | 2016-07-10 15:07 | PROG NOTE ---
[address] [address] PROGRESS NOTE PATIENT: KAYLA LARIOS : 1960 MR#: [id number] ADMIT: 07/06/2016 JOB ID: [id number] DATE: 07/10/2016 REASON FOR FOLLOWUP: MSSA Groshong infection, now status post removal of the line. INTERVAL HISTORY: The patient continues to feel a bit weak and have some pain along the tunnel of her former Groshong line. Overall, though, she feels better and denies fevers, chills, or sweats. She tolerated the dose of dalbavancin yesterday afternoon with absolutely no problems and is happy that she will not require any additional antibiotics for this infection. She eagerly awaits the placement of her new central line. PHYSICAL EXAMINATION: Reveals an afebrile woman, temp 36.1, pulse 61, respiratory rate 16, blood pressure 106/71, saturating well on room air. The patient is awake, alert, and oriented x3. Oral cavity negative. Lungs relatively clear. The three small incisions along the track of the Groshong tunneled catheter that was removed appear benign and are free of infection. Patient's abdomen is benign. Labs include a white count of 2900 which is 51% polys, so a total neutrophil count of about 1500 which is more than adequate. Platelet count 286. Creatinine is 0.55. Micro studies include negative followup blood cultures and negative urine. Recall that her cultures from the area where the line was removed though grew MSSA. IMPRESSION: This patient clearly had an methicillin-sensitive Staphylococcus aureus Groshong line tunnel infection. This was removed which is most appropriate, and three small incisions were made. There were no positive blood cultures, but I wanted to make sure that definitive treatment for this tunnel infection was done in this very difficult to manage patient. Yesterday, we decided to give her a dose of dalbavancin and she tolerated that very well. The current plans call for her to get a new Groshong in the next several days. RECOMMENDATIONS: 1. The patient has completed the appropriate course of antibiotics at this point, and she will functionally be receiving dalbavancin for the next two weeks without any additional infusion. 2. I see no indication for continued ID followup, so will go ahead and sign off at this time but do not hesitate to call us if there are questions.
[2016-07-10] MEDS ORDERED: Sodium Chloride LOK Flush 10 mL Syringe IVFLUSH PRN ×2 (15:15)
--- NOTE | 2016-07-10 18:07 | NUR ---
Dressing Change 3x dressings to left upper chest removed. Upper and lower closed/scabbed over, did rinse with NS, no dressing over. Used Qtip and flushed middle site with NS multiple times - sanguineous drainage with small clots flushed out. Chest tender, pt tolerated dressing change without need of pain medications prior. Did receive SMITH PO Dilaudid post change. Gauze and hypafix tape placed over site. CDI. Addendum: 07/10/16 at 1810 by JOSE MARIA DILLARD RN Amended: Links added.
[2016-07-10 19:55] VITALS: BP 101/62; PULSE 58; RESP 16; O2SAT 98
[2016-07-11] MEDS: 0.9% Sodium Chloride 1,000 ML IV SCH (03:06)
[2016-07-11] MEDS: diphenhydrAMINE 25 mg Capsule PO SCH ×4 (04:47→23:13)
[2016-07-11 04:58] VITALS: BP 120/75; PULSE 56; RESP 16; O2SAT 95
[2016-07-11 06:21] LABS: BASOPHILS % (AUTO) 0 % (0-3); EOSINOPHILS % (AUTO) 0 % (0-5); Mean Corpuscular Hemoglobin 26.3 pg (27.0-35.0); Mean Corpuscular Volume 85.1 fL (81-100); NEUTROPHILS % (AUTO) 38.2 % (40-74); Platelet Count 273 bil/L (150-400)
--- NOTE | 2016-07-11 06:39 | NUR ---
Activity Pt able to ambulate to the bathroom without assistive device. Pt gait was steady and non slip socks on for safety. c/o of some LT ankle discomfort. care ongoing.
--- NOTE | 2016-07-11 06:42 | NUR ---
Telemetry- SR HR 106 per monitoring tech. denies shortness of breath and chest pain. Addendum: 07/11/16 at 0647 by ROSIE YE RN wrong patient chart. Pls. disregard.
--- NOTE | 2016-07-11 07:59 | PCM.PNMED ---
Subjective Date of Service Jul 11, 2016 Subjective Patient is doing well. She is agreeable to receiving heparin subcutaneous shots for DVT prophylaxis. She says she lost her IV once again and she is tired of getting stuck. She would really like to get a Groshong catheter again prior to her discharge. Negative fevers chills or night. Her pain is under control. 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 Exam Vital Signs Vital Sign - Last Date Time Temp Pulse Resp B/P Pulse Ox O2 Delivery O2 Flow Rate FiO2 07/11/16 04:58 36.7 56 16 120/75 95 Room Air Intake and Output 07/10/16 07/10/16 07/11/16 Cumulative From/Thru 15:00 23:00 07:00 07/06/16 16:20 - 07/11/16 05:53 Intake Total 1604 ml 2437 ml 89886 ml Output Total 1150 ml 1100 ml 7000 ml Balance 454 ml 1337 ml 4942 ml Intake Oral 500 ml 1200 ml 6105 ml IV Total 1104 ml 1237 ml 5837 ml Output Urine Total 1150 ml 1100 ml 7000 ml # Voids 7 # Bowel Movements 0 0 4 Exam Gen.: No acute distress, pale HEENT: Normocephalic, atraumatic Heart regular rate and rhythm no S3-S4 sounds Lungs CTA laterally or wheezes Abdomen soft obese and nontender tender normal bowel sounds are present Neuro no focal deficits Psych negative for anxiety Skin: Her site where the Groshong catheter was taken out over her left chest appears clean and nonpurulent Lab and Diagnostics Result Diagram: 07/11/16 0609 07/11/16 0609 Microbiology Blood cultures 2 are negative to date X-Rays, CTs and MRIs Chest x-ray performed 07/06/2016 IMPRESSION: No acute disease. Dictated by: Amanda Degroot M.D. on 07/06/2016 at 20:46 [facility] Diagnostic [place] [address] Patient Name: KAYLA LARIOS MR#: [id number] Location: [facility] Ordering Phys: Deborah Ta DO Date of Service: 07/09/16 1336 PROCEDURE: X-RAY LEFT FOOT COMPLETE, MINIMUM THREE VIEWS ([id number]) INDICATIONS: pain, swelling TECHNIQUE: 3 views of the foot were acquired. COMPARISON: [facility], CR, XR FOOT 3VW LT, 06/09/2016, 11:49. FINDINGS: Bones: No fractures or dislocations. No suspicious bony lesions. Mild facet joint degeneration with prominent dorsal osteophytes. Calcaneal spurring. Soft tissues: No tibiotalar joint effusion. Achilles tendon appears normal. IMPRESSION: No displaced fracture seen. If there is continued pain, followup exam or additional imaging such as MRI or CT could be performed for further assessment. Dictated by: Dennys Malhotra RRErnesto Interpreted: Jeanne Garcia MD on 07/09/2016 at 15:09 Transcribed by: MAGED on 07/09/2016 at 15:10 Approved by: Jeanne Garcia MD, PhD on 07/09/2016 at 16:35 Assessment & Plan 55-year-old woman with chronic pain, previous Groshong catheter placement in place for 3 years, receiving pain medications and antinausea medications times daily presented with catheter insertion site infection, status post abscess drainage. She is currently getting her medications via an IV acute sepsis, secondary to central line infection present on admission, treatment initiated: Resolved -Heart rate 105 on presentation, temperature 36.0, subjective weakens, identified source infected catheter site mid chest: Groshong catheter was removed -She was initially managed on Vanco and Zosyn. Both of these were discontinued today. Her blood cultures are negative to date day #3( -ID is consulted, they gave her dalbivancin: We appreciate their recommendations. They recommend holding putting in any lines into her at this time. Continued monitoring is recommended. A target date of Saturday for PICC line insertion. We plan to check her catheter site daily for any signs of infection. This plan was communicated to surgery. They will consider anesthesia Gen. per the procedure if possible. Patient is agreeable to this plan Acute infected/purulent/abscessed Groshong catheter site, present on admission, treatment ongoing -Blood cultures from outpatient showed no growth to date - Blood cultures obtained and pending results currently no growth to date -UA culture negative -- Antibiotics as above Acute hyponatremia, present on admission: Resolved -Continue to monitor with daily labs Anemia of chronic disease: She is started on iron supplementation after reviewing the iron panel. Her B12 levels were normal but her folate levels lab failed to detect due to hemolysis of the specimen. We will repeat the test tomorrow a.m. - Acute urticarial rash, waxing and waning, present on admission, evaluation and treatment ongoing -Resolved Chronic esophageal dysmotility/spasm - Continue pain medication and methadone Chronic severe GERD, improved, present on admission -At this time we are unable to continue the promethazine as we do not have any in stock. Continue Compazine and Zofran. He checked with pharmacy in today they still do not have an expected date as to when they will get the supply Right foot pain: X-ray was done yesterday showed several bony spurs several bony spurs. Patient declined treatment options at this time. We will consider Lidoderm patch. #Chronic stable medical conditions Hypomagnesemia - replete as necessary Vitamin D deficiency -Continue home medication necessary Disposition: Current plan is for her to get a PICC line on Saturday and go home. Patient keeps requesting a Groshong catheter report which is more permanent for her and she feels the better option than take the PEG tube. We will address this with ID before her discharge Pain Evaluation: Adequate Pain Control GI Prophylaxis: Proton Pump Inhibitor VTE Prophylaxis: Sub-Q Heparin (Unfractionated), SCDs, CAROL Hammer VTE Mechanical Devices: Intermittant Pneumatic CD Resuscitation Status: CPR: Attempt Resuscitation Deborah Ta DO Jul 11, 2016 07:58
[2016-07-11 08:11] LABS: Vitamin B12 875 pg/mL (211-946)
[2016-07-11] MEDS: Pantoprazole 4 mg/mL 10 mL Inj IV SCH ×3 (08:19→20:30)
[2016-07-11] MEDS: Sodium Chloride LOK Flush 10 mL Syringe IVFLUSH SCH ×3 (08:20→23:46)
[2016-07-11] MEDS: Magnesium Chloride SR 64 mg ER24 Tablet PO SCH (08:27)
--- NOTE | 2016-07-11 13:42 | NUR ---
Diet/Pain Patient reports increased nausea/vomiting and abdominal pain. Antiemetics given. Attempted to eat lunch, but chewed flavor from food and then spit out. Patient states she normally does this with her chronic nausea and gastric bypass history.
[2016-07-11 14:59] VITALS: BP 94/59; PULSE 64; RESP 16; O2SAT 95
[2016-07-11 20:05] VITALS: BP 117/78; PULSE 57; RESP 17; O2SAT 97
[2016-07-11] MEDS: Heparin 5,000 Unit/mL Inj SUBQ SCH (20:44)
[2016-07-12] MEDS: HYDROmorphone 0.5 mg/0.5 mL iSecure Syringe IVPUSH PRN (01:19)
--- NOTE | 2016-07-12 02:32 | NUR ---
Pain Patient c/o increase in pain to left upper chest @ site of previous tunnel catheter. States scheduled pain medications aren't helping with the pain, rating it 9/10. Received PRN Dilaudid IVP per orders. Results effective- noted to be resting with eyes closed upon reassessment.
[2016-07-12] MEDS: Heparin 5,000 Unit/mL Inj SUBQ SCH ×3 (03:59→19:15)
[2016-07-12] MEDS: diphenhydrAMINE 25 mg Capsule PO SCH ×4 (05:09→23:13)
--- NOTE | 2016-07-12 05:17 | PCM.PNMED ---
Subjective Date of Service Jul 12, 2016 Subjective Patient is seen and examined. She is talking about her IV sticks and pain control and is asking for the noon dose of her methadone. She feels that Dr. Matamoros could not afford a week from tomorrow. She is expected to undergo sedation for a PICC line tomorrow a.m per general surgery. She is stating she would need a prescription for her IV Protonix, IV Phenergan to be used at home. Without this medication C cannot eat properly and she is concerned about her nutrition status.. Exam Vital Signs Vital Sign - Last Date Time Temp Pulse Resp B/P Pulse Ox O2 Delivery O2 Flow Rate FiO2 07/11/16 20:05 36.7 57 17 117/78 97 Room Air Intake and Output 07/11/16 07/11/16 07/12/16 Cumulative From/Thru 15:00 23:00 07:00 07/06/16 16:20 - 07/12/16 05:11 Intake Total 200 ml 108 ml 34788 ml Output Total 1800 ml 8800 ml Balance -1600 ml 108 ml 3450 ml Intake Oral 200 ml 6305 ml IV Total 108 ml 5945 ml Output Urine Total 1800 ml 8800 ml # Voids 7 # Bowel Movements 0 4 Exam Gen.: No acute distress pale appearing HEENT: Normocephalic atraumatic Heart: Regular rate and rhythm no S3-S4 sounds Lungs: Clear to auscultation without crackles or wheezes heard Abdomen: Soft, nondistended Skin: Site of her old Groshong catheter appears clean and dry no active bleeding or purulence is present Neuro: No focal deficits Psych: Perseverating on her pain issues Lab and Diagnostics Laboratory Tests Test 07/12/16 06:20 White Blood Count 3.8th/mm3 (3.8-10.1) Red Blood Count 4.12mil/mm3 (3.90-5.20) Hemoglobin 10.8g/dL (12.0-15.6) Hematocrit 34.7% (35.0-46.0) Mean Corpuscular Volume 84.2fL (81-100) Mean Corpuscular Hemoglobin 26.2pg (27.0-35.0) Mean Corpuscular Hemoglobin Concent 31.1% (32.0-37.0) Red Cell Distribution Width 14.0% (12.3-15.4) Platelet Count 330bil/L (150-400) Neutrophils (%) (Auto) 34.2% (40-74) Lymphocytes (%) (Auto) 54.6% (14-46) Monocytes (%) (Auto) 10.9% (4-12) Eosinophils (%) (Auto) 0% (0-5) Basophils (%) (Auto) 0% (0-3) Sodium Level 139mEq/L (134-144) Potassium Level 4.9mEq/L (3.5-5.2) Chloride Level 103mEq/L (97-108) Carbon Dioxide Level 24mmol/L (18-29) Blood Urea Nitrogen 5mg/dL (6-24) Creatinine 0.65mg/dL (0.57-1.00) Estimat Glomerular Filtration Rate 136mL/min (>59) Glucose Level 93mg/dL (60-99) Calcium Level 8.4mg/dL (8.5-10.1) Total Bilirubin 0.2mg/dL (0.0-1.2) Aspartate Amino Transf (AST/SGOT) 13U/L (0-50) Alanine Aminotransferase (ALT/SGPT) 9U/L (0-32) Alkaline Phosphatase 98U/L (25-150) Total Protein 5.4g/dL (6.4-8.4) Albumin 2.9g/dL (3.4-5.0) Microbiology 07/06/16 Blood Culture - Final, Complete NO GROWTH AFTER 5 DAYS 07/07/16 Urine Culture - Final, Complete No growth (<1,000 organisms/mL) Result Diagram: 07/11/16 0609 07/11/16 0609 Microbiology Blood cultures 2 are negative to date X-Rays, CTs and MRIs Chest x-ray performed 07/06/2016 IMPRESSION: No acute disease. Dictated by: Amanda Degroot M.D. on 07/06/2016 at 20:46 [facility] Diagnostic [place] [address] Patient Name: KAYLA LARIOS MR#: [id number] Location: [facility] [place] Ordering Phys: Deborah Ta DO Date of Service: 07/09/16 1336 PROCEDURE: X-RAY LEFT FOOT COMPLETE, MINIMUM THREE VIEWS ([id number]) INDICATIONS: pain, swelling TECHNIQUE: 3 views of the foot were acquired. COMPARISON: [facility], CR, XR FOOT 3VW LT, 06/09/2016, 11:49. FINDINGS: Bones: No fractures or dislocations. No suspicious bony lesions. Mild facet joint degeneration with prominent dorsal osteophytes. Calcaneal spurring. Soft tissues: No tibiotalar joint effusion. Achilles tendon appears normal. IMPRESSION: No displaced fracture seen. If there is continued pain, followup exam or additional imaging such as MRI or CT could be performed for further assessment. Dictated by: Dennys Malhotra RRA Interpreted: Jeanne Garcia MD on 07/09/2016 at 15:09 Transcribed by: MAGED on 07/09/2016 at 15:10 Approved by: Jeanne Garcia MD, PhD on 07/09/2016 at 16:35 Assessment & Plan 55-year-old woman with chronic pain, previous Groshong catheter placement in place for 3 years, receiving pain medications and antinausea medications times daily presented with catheter insertion site infection, status post abscess drainage. She is currently getting her medications via an IV acute sepsis, secondary to central line infection present on admission, treatment initiated: Resolved -Heart rate 105 on presentation, temperature 36.0, subjective weakens, identified source infected catheter site mid chest: Groshong catheter was removed -She was initially managed on Vanco and Zosyn. Both of these were discontinued today. Her blood cultures are negative to date day #3( -ID is consulted, they gave her dalbivancin: We appreciate their recommendations. They recommend holding putting in any lines into her at this time. Continued monitoring is recommended. A target date of Saturday for PICC line insertion. We plan to check her catheter site daily for any signs of infection. This plan was communicated to surgery. They will consider anesthesia Gen. per the procedure if possible. Patient is agreeable to this plan: Patient will be undergoing a PICC line placement tomorrow per general surgery sedation will be provided Acute infected/purulent/abscessed Groshong catheter site, present on admission, treatment ongoing -Blood cultures from outpatient showed no growth to date - Blood cultures obtained and pending results currently no growth to date -UA culture negative -- Antibiotics as above Acute hyponatremia, present on admission: Resolved -Continue to monitor with daily labs Anemia of chronic disease: She is started on iron supplementation after reviewing the iron panel. Her B12 levels were normal but her folate levels lab failed to detect due to hemolysis of the specimen. We will repeat the test tomorrow a.m. - Acute urticarial rash, waxing and waning, present on admission, evaluation and treatment ongoing -Resolved -- Offered to [facility] Chronic esophageal dysmotility/spasm - Continue pain medication and methadone Chronic severe GERD, improved, present on admission -At this time we are unable to continue the promethazine as we do not have any in stock. Continue Compazine and Zofran. He checked with pharmacy in today they still do not have an expected date as to when they will get the supply Right foot pain: X-ray was done yesterday showed several bony spurs several bony spurs. Patient declined treatment options at this time. We will consider Lidoderm patch. #Chronic stable medical conditions Hypomagnesemia - replete as necessary Vitamin D deficiency -Continue home medication necessary Anemia of chronic disease: She started on iron supplementation Disposition: Current plan is for her to get a PICC line on Saturday and go home. GI Prophylaxis: Proton Pump Inhibitor VTE Prophylaxis: Sub-Q Heparin (Unfractionated), SCDs, CAROL Jose Cruze VTE Mechanical Devices: Intermittant Pneumatic CD Resuscitation Status: CPR: Attempt Resuscitation Deborah Ta DO Jul 12, 2016 05:17
[2016-07-12 05:19] VITALS: BP 92/60; PULSE 60; RESP 17; O2SAT 94
[2016-07-12 06:52] LABS: BASOPHILS % (AUTO) 0 % (0-3); EOSINOPHILS % (AUTO) 0 % (0-5); MONOCYTES % (AUTO) 10.9 % (4-12); Mean Corpuscular Hemoglobin 26.2 pg (27.0-35.0); Mean Corpuscular Volume 84.2 fL (81-100); NEUTROPHILS % (AUTO) 34.2 % (40-74); Platelet Count 330 bil/L (150-400)
[2016-07-12] MEDS: Sodium Chloride LOK Flush 10 mL Syringe IVFLUSH SCH ×3 (08:53→23:26)
[2016-07-12] MEDS: Pantoprazole 4 mg/mL 10 mL Inj IV SCH ×3 (08:53→14:48)
[2016-07-12] MEDS: Magnesium Chloride SR 64 mg ER24 Tablet PO SCH (08:54)
--- NOTE | 2016-07-12 11:27 | NUR ---
Social Work- Readiness for Discharge Data: EMR reviewed. Pt is on day 6 of hospitalization for abscess per H&P. Pt is not medically stable, anticipate discharge in 1-2 more days. Pt to receive PICC line Saturday. Per RN notes, pt has been up ambulating in room. Pt is open with [facility]. JOSE spoke with Cathy with [facility] [phone] regarding pt's discharge plan. Cathy requested SW fax D/C orders and clinicals at time of discharge. Pt to discharge home with mother to transport via POV. Pt to resume [facility] at discharge. SW will continue to follow. Assessment: Pt who is independent at base. Plan: SW to fax clinicals to [facility] at discharge. Pt to discharge home with mother to transport via POV. Pt to resume [facility] at discharge. SW will continue to follow. Jessy Koch MSW
--- NOTE | 2016-07-12 12:29 | PCM.ANEPRE ---
Anesthesia Pre-Op Review Reason for Review: Pt requesting sedation for PICC line insertion Anesthesia Recommendations: Proceed with Procedure Additional Comments Pt with groshong catheter for tpn and hydration due to esophageal motility disorder; groshong became infected and needs PICC line now. Pt anxious and has had failed sedation before and wishes to have sedation. Pt has peripheral iv in place. Ok to proceed, will likely be done in procedure room where we did the pediatric dental cases and where iv therapy has all their equipment. Pt understands this is only sedation and not a GA. Chart Reviewed by: Willis Gutiérrez MD, MD Jul 12, 2016 12:29
[2016-07-12 15:00] VITALS: BP 118/80; PULSE 58; RESP 16; O2SAT 97
--- NOTE | 2016-07-12 15:00 | NUR ---
IV Lost IV access. Per , ok for pt not to have IV access until PICC line placement tomorrow. Protonix will be changed to PO. Pt is agreeable to plan.
[2016-07-12] MEDS: Pantoprazole 40 mg ER24 Tablet PO SCH (17:46)
[2016-07-12] MEDS ORDERED: Mineral Oil-Petroltum 120 Gm Cream TOPICAL PRN (19:20)
[2016-07-12 20:34] VITALS: BP 100/69; PULSE 57; RESP 20; O2SAT 95
[2016-07-13] MEDS: diphenhydrAMINE 25 mg Capsule PO SCH ×2 (04:15→10:43)
[2016-07-13] MEDS: Heparin 5,000 Unit/mL Inj SUBQ SCH ×2 (04:16→10:44)
--- NOTE | 2016-07-13 04:37 | NUR ---
Activity/Pain Up to bathroom, gait steady. No c/o dizziness or lightheadedness. Pain has steadily been 4/10 with scheduled pain medication assessments. Noted to be resting with eyes closed upon reassessments. Patient states this is "the most sleep she's had" since being here.
[2016-07-13] MEDS ORDERED: Lactated Ringer's 1,000 ML IV SCH ×2 (05:00→10:01)
[2016-07-13 05:49] VITALS: BP 112/75; PULSE 59; RESP 20; O2SAT 93
[2016-07-13 06:43] LABS: BASOPHILS % (AUTO) 0 % (0-3); EOSINOPHILS % (AUTO) 0 % (0-5); MONOCYTES % (AUTO) 9.8 % (4-12); Mean Corpuscular Hemoglobin 26.2 pg (27.0-35.0); Mean Corpuscular Volume 84.4 fL (81-100); NEUTROPHILS % (AUTO) 36.8 % (40-74); Platelet Count 305 bil/L (150-400)
[2016-07-13] MEDS: Sodium Chloride LOK Flush 10 mL Syringe IVFLUSH SCH (07:23)
[2016-07-13] MEDS: Pantoprazole 40 mg ER24 Tablet PO SCH (08:16)
[2016-07-13] MEDS: Magnesium Chloride SR 64 mg ER24 Tablet PO SCH (08:16)
[2016-07-13] MEDS ORDERED: Ergocalciferol (Vit D2) 50,000 Unit Capsule PO SCH (08:30)
[2016-07-13 09:33] VITALS: BP 131/81; PULSE 64; RESP 18; O2SAT 95
[2016-07-13] MEDS ORDERED: Lactated Ringer's 500 ML IV PRN (10:01)
--- NOTE | 2016-07-13 10:01 | PCM.HPANE ---
Patient Data Date of Service: Jul 13, 2016 Surgeon Admitting Provider:Radha Stone DO Attending Provider:Radha Stone DO Primary Care Physician:Rey Del Real MD Other Provider: Reason for Visit Abscess Ht/WT & BMI Height (Feet): 5 Height (Inches): 6.50 Weight (Kilograms): 93.500 Body Mass Index 32.8 Allergies Coded Allergies: codeine (Verified Allergy, Intermediate, Hives, 07/06/16) diclofenac sodium (Verified Allergy, Intermediate, Rash, 07/06/16) ibuprofen (Verified Allergy, Intermediate, Nausea,Vomiting, 07/06/16) zolpidem (Verified Allergy, Intermediate, sleep walking/ abnormal activity , 07/06/16) Adhesives (Unverified Allergy, Unknown, UNKNOWN (NO PLASTIC TAPE-HYPA FIX OK), 07/06/16) Tetracyclines (Unverified Allergy, Unknown, UNKNOWN, 07/06/16) capsaicin (Verified Allergy, Unknown, Blood blisters, 07/06/16) menthol (Verified Allergy, Unknown, blood blisters, 07/06/16) aspirin (Verified Adverse Reaction, Severe, Contraindicated post gastric bypass, 07/06/16) morphine (Unverified Adverse Reaction, Severe, NO ALLERGY-DRUG NOT EFFECTIVE, 07/06/16) Uncoded Allergies: NSAIDS (Allergy, Unknown, WITH GASTRIC SURGERY NO NSAIDS, 02/04/16) Past Anesthesia History Anesthesia History: Denies:: Anesthesia Reactions, Malignant Hyperthermia Diabetes History Hx Diabetes?: No MRSA MRSA: No Medications Hypertension Medication: No Home Meds Incl Beta Michelle: No Reported Medications Tetrahydrozoline HCl/Zn Sulf (Visine Allergy Relief Drop)15 Ml Drops2 Drop BOTH_ EYES Q2H PRN DRY EYES 07/06/16 Acetaminophen 325 Mg Eoahlv451 Mg PO Q6H PRN For Fever Ref 0 07/06/16 Fluticasone Propionate (Flonase Allergy Relief)50 Mcg/Actuation [place].susp1 [place] NS DAILY PRN RHINITIS 07/06/16 Methadone 10 Mg/1 Ml Oral.conc12.5 Mg PO DAILY AT 1400 TAKE 7.5 MG PO IN AM, 12.5 MG PO AT 1400, AND 20 MG AT HS 07/06/16 Magnesium Chloride (Slow-Mag)64 Mg Epusuh64 Mg PO DAILY 07/06/16 Methadone 5 Mg/5 Ml Koghjjho33 Mg PO HS AT 2200 Ref 0 TAKE 7.5 MG PO IN AM, 12.5 MG PO AT 1400, AND 20 MG AT HS 07/14/15 Methadone 5 Mg/5 Ml Solution7.5 Mg PO QAM AT 0600 Ref 0 TAKE 7.5 MG PO IN AM, 12.5 MG PO AT 1400, AND 20 MG AT HS 07/14/15 Hydromorphone 4 Mg Tablet6 Mg PO QID Ref 0 0800,1200,1600,0000 07/14/15 Methocarbamol 750 Mg Vaukvy320 Mg PO TID Ref 0 TAKES AT 0600, 1400, 2200 07/14/15 Cholecalciferol (Vitamin D3) (Vitamin D3)50,000 Unit Yjqubpm25,000 Unit PO WEEKLY Sundays01/08/14 Promethazine 50 Mg/1 Ml Ampul50 Mg IV Q 4HRS PRN 01/08/14 Pantoprazole Sodium (Protonix IV)40 Mg Vial40 Mg IV Q 8HRS TAKES AT 0600, 1400, 219901/08/14 Clobetasol Propionate/Emoll (Clobetasol Emollient 0.05% Crm)15 Gm Cream..g.1 Appl TP BID PRN PRN #1 TUBE 01/08/14 Cyanocobalamin (Cyanocobalamin Injection)1,000 Mcg/1 Ml Vial1,000 Mcg IM Monthly 10TH OF THE 01/08/14 Discontinued Reported Medications Magnesium Oxide (Magnesium)500 Mg Bvlztcf009 Mg PO DAILY 07/14/15 Fluticasone Propionate (Flonase Nasal)16 Gm [place].susp1 [place] NS prn #16 GM Ref 0 01/08/14 History History of ENT Problems?: Yes HEENT History: Denies:: Cataracts Dysphagia Hearing Problem Sinus Problem Denture Type: Full- Upper Full- Lower Hx of Heart Problems?: Yes Cardiovascular History: Positive for:: Chest Pain (with esophageal spasm) Congestive Heart Failure (diastolic dysfunction) Edema (1+ PITTING LE) Heart Murmur (ECHO SCHEDULED) Irregular Heartbeat (PVC'S) Denies:: Cardiac Surgery Hypertension (HX OF ORTHOSTASIS) Pacemaker Thrombophlebitis Hx of Respiratory Problem?: Yes Respiratory History: Positive for:: Chest Surgery (HX OF SARCOIDOSIS S/P MEDIASTINOSCOPY) Dyspnea (S[place]) Denies:: Asthma COPD Cough Emphysema Hemoptysis Oxygen Administration Pneumonia Pulmonary Embolism Tuberculosis Use of C-PAP Machine (had sleep study, said she stop breathing 17x hr) Other Resp Pertinent History: hx DONOVAN, resolved since gastryc bypass sry Hx Neurologic Problems?: Yes Neurological History: Positive for:: Dizziness (SYNCOPE W/ MULT FALLS/ CONCUSSION) Headaches (resolved, related to stress) Denies:: Alzheimer's Disease CVA Dementia Multiple Sclerosis Parkinson's Disease Seizures Hx of GI Problems?: Yes Gastrointestinal History: Positive for:: Gastroesphageal Reflux (S/P GASTRIC RPR OF ULCER) Gastrointestinal Bleeding (HX OF SBO, Ofelia-en-Y, multiple complications W/ 29 HOSPITALIZATIONS) Heartburn Denies:: Cirrhosis Diverticulitis Hepatitis Hiatal Hernia Rectal Bleeding Hx of Problems?: No Genitourinary History: Denies:: HX of Hemodialysis Kidney Stones Urinary Tract Infection HX of Peritoneal Dialysis: No Female Hx: Positive for:: Endometriosis Denies:: Currently Pelvic Inflammatory Problems with Breasts? Skin History: Positive for:: History Skin Disorders? (exzema, psoriasis) Denies:: Pressure Ulcers Hx Musculoskeletal Problems?: Yes Musculoskeletal History: Positive for:: Back Injury (C/OF CHRONIC BACK PAIN/ CHRONIC PAIN SYNDROME) Musculoskeletal Trauma (RECURRENT FALLS S/P ANKLE RPR) Denies:: Degenerative Joint Joint Replacement Systemic Lupus Hx of Psycho/Social Problems?: Yes (chronic pain) Psycho Social History: Positive for:: Anxiety Denies:: Bipolar Disorder Hx Depression Suicide Attempt Hx Surgeries?: Yes (OFELIA-N-Y,GROSHONE,PORTS,APPY,LACEY,ANKLE RPR,JORDIN/BSO, GASTRIC ULCER,BOWEL RE) Hx Any Other Health Problems?: Yes Other History: Positive for:: Hospitalization (MULT FROM COMPLICATIONS OF OFELIA -N-Y SURGERY) Denies:: Cancer Endocrine Disease Thyroid Disease History Blood Transfusions: Positive for:: Accept Blood Products? Blood Transfusions Denies:: Blood Transfuse Reaction Hx Diabetes: No Hx Alcohol Use: NoHx Substance Use: Yes (methadone since 2000 for chronic pain ) Smoking Status: Former Smoker Have You Smoked inLast 12 mo: No Stop/Bang Treated for Sleep Apnea?: No Do You Have a CPAP Machine?: No S-Snoring: Do You Snore Loudly: No T-Tired: feel tired, fatigued: Yes O-Obsered: Observed not breath: No P-Blood Pressure: treated: No B- Body Mass Index > 35 kg/m2: No A- Age over 50: Yes N- Neck Large Circumference: No G- Gender Male: No DONOVAN Total Score: 1 DONOVAN Risk Assessment: Low Risk, <3 Yes Risk Assessment Category Category 1A: Patient has history of documented sleep apnea, and HAS NOT received any narcotic, sedative or anesthesia administration during this stay. Category 1B: Patient has history of documented sleep apnea, and HAS received any narcotic , sedative or anesthesia administration during this stay Category 2: Patient has SUSPECTED Obstructive Sleep Apnea, and HAS received any narcotic , sedative or anesthesia administration during this stay. Category 3: Patient has SUSPECTED Obstructive Sleep Apnea and HAS NOT received narcotic, sedative or anesthesia administration during this stay. Category 4: Outpatient in Procedural Areas with known sleep apnea or who screen positive for High Risk via the STOP/BANG questionnaire. Exam Exam Vital Signs Vital Signs Date Time Temp Pulse Resp B/P Pulse Ox O2 Delivery O2 Flow Rate FiO2 07/13/16 09:33 36.7 64 18 131/81 95 Room Air 07/13/16 05:49 36.7 59 20 112/75 93 Room Air General Appearance: Alert, Oriented X3, Cooperative HEENT/AIRWAY: MP 2, Neck Movement (OK), Mouth Opening (Wide, upper and lower dentures) Lungs: Clear to Auscultation, Normal Air Movement Heart: Regular Rate/Rhythm, Normal S1, Normal S2 Meds/Labs/Diagnostics Admission Meds Current Medications Pantoprazole (Protonix) 40 mg BIDAC PO Last administered on 07/13/16t 08:16; Start 07/12/16 at 16:30 Labs Test 07/06/16 19:20 07/07/16 00:10 07/07/16 05:40 07/07/16 19:40 Lactic Acid Level 0.6mmol/L (0.4-2.0) Hold Dawson Top Tube Received (Received) Urine Color Yellow (YELLOW) Urine Appearance Clear (CLEAR,HAZY) Urine pH 5.5 (5.0-8.0) Urine Specific [place] 1.010 (1.003-1.035) Urine Protein Negativemg/dL (NEG,TRACE) Urine Glucose (UA) Negativemg/dL (NEGATIVE) Urine Ketones Negativemg/dL (NEGATIVE) Urine Occult Blood Negative (NEGATIVE) Urine Nitrite Negative (NEGATIVE) Urine Bilirubin Negative (NEGATIVE) Urine Urobilinogen Normalmg/dL (NORMAL) Urine Leukocyte Esterase Small (NEGATIVE) Urine RBC 0-2/hpf (0-2) Urine WBC 6-10/hpf (0-5) Urine Epithelial Cells Occasional/hpf (NONE-MOD) Urine Crystals None seen (NONE SEEN) Urine Bacteria Few/hpf (NONE-FEW) Urine Hyaline Casts None/lpf (NONE) Urine Granular Casts None seen (NONE SEEN) Urine Waxy Casts None seen (NONE SEEN) Urine Red Blood Cell Casts None seen (NONE SEEN) Urine White Blood Cell Casts None seen (NONE SEEN) Urine Mucus None seen (None Seen) Urine Trichomonas None seen (NONE SEEN) Urine Yeast None (NONE SEEN) Urinalysis Comment None Urine Culture Reflexed Indicated Magnesium Level 1.5mg/dL (1.6-2.6) Vancomycin Level Trough 17.5mcg/mL Test 07/10/16 02:25 07/10/16 07:15 07/12/16 06:20 07/13/16 06:20 Iron Level 35ug/dL (35-150) Total Iron Binding Capacity 246ug/dL (250-450) Percent Iron Saturation 14%sat (15-50) Unsaturated Iron Binding 210.8ug/dL Ferritin 61ng/mL (13-150) Vitamin B12 Level 875pg/mL (211-946) Folate 17.9ng/mL (>3.0) White Blood Count 3.1th/mm3 (3.8-10.1) Red Blood Count 4.05mil/mm3 (3.90-5.20) Hemoglobin 10.6g/dL (12.0-15.6) Hematocrit 34.2% (35.0-46.0) Mean Corpuscular Volume 84.4fL (81-100) Mean Corpuscular Hemoglobin 26.2pg (27.0-35.0) Mean Corpuscular Hemoglobin Concent 31.0% (32.0-37.0) Red Cell Distribution Width 14.0% (12.3-15.4) Platelet Count 305bil/L (150-400) Neutrophils (%) (Auto) 36.8% (40-74) Lymphocytes (%) (Auto) 53.1% (14-46) Monocytes (%) (Auto) 9.8% (4-12) Eosinophils (%) (Auto) 0% (0-5) Basophils (%) (Auto) 0% (0-3) Sodium Level 137mEq/L (134-144) Potassium Level 4.7mEq/L (3.5-5.2) Chloride Level 100mEq/L (97-108) Carbon Dioxide Level 25mmol/L (18-29) Blood Urea Nitrogen 6mg/dL (6-24) Creatinine 0.71mg/dL (0.57-1.00) Estimat Glomerular Filtration Rate 123mL/min (>59) Glucose Level 86mg/dL (60-99) Calcium Level 8.9mg/dL (8.5-10.1) Total Bilirubin 0.2mg/dL (0.0-1.2) Aspartate Amino Transf (AST/SGOT) 47U/L (0-50) Alanine Aminotransferase (ALT/SGPT) 27U/L (0-32) Alkaline Phosphatase 122U/L (25-150) Total Protein 5.5g/dL (6.4-8.4) Albumin 2.8g/dL (3.4-5.0) Diagnositcs echo reviewed, EF 55% Plan Impression Patient chart reviewed, patient interviewed and anesthestic plan with risks, benefits, and alternatives discussed, and informed consent obtained. NPO Status: 01/10 2100 ASA Physical Status: ASA3 Severe Disease Anesthetic Plan: MAC Bene/Risks/Altern/Consents: Yes HP Complete Prior to Induction: Yes Brian Wright MD Jul 13, 2016 10:01
[2016-07-13] MEDS ORDERED: MetoCLOpramide 5 mg/mL 2 mL Inj IVPUSH PRN (10:05)
[2016-07-13] MEDS ORDERED: hydrALAZINE 20 mg/mL Inj IVPUSH PRN (10:05)
[2016-07-13] MEDS ORDERED: Phenylephrine 10,000 mCg/mL Inj IVPUSH PRN (10:05)
[2016-07-13] MEDS ORDERED: Labetalol 5 mg/mL 4 mL Inj IV PRN (10:05)
[2016-07-13] MEDS ORDERED: EPHEDrine Sulfate 50 mg/mL Inj IVPUSH PRN (10:05)
[2016-07-13] MEDS ORDERED: Ondansetron 2 mg/mL 2 mL Inj IVPUSH PRN (10:05)
[2016-07-13] MEDS ORDERED: HYDROmorphone 1 mg/mL Inj IVPUSH PRN (10:05)
[2016-07-13] MEDS ORDERED: Atropine 0.4 mg/mL Inj IVPUSH PRN (10:05)
[2016-07-13] MEDS ORDERED: fentaNYL-PF 50 mCg/mL 2 mL Inj IVPUSH PRN (10:05)
[2016-07-13] MEDS ORDERED: 0.9% Sodium Chloride 2,000 ML ONE (10:45)
[2016-07-13] MEDS ORDERED: Heparin 1,000 Unit/mL 10 mL Inj ONE (10:45)
[2016-07-13] MEDS: HYDROmorphone 0.5 mg/0.5 mL iSecure Syringe IVPUSH PRN (10:45)
[2016-07-13] MEDS ORDERED: fentaNYL-PF 50 mCg/mL 2 mL Inj ONE ×4 (11:27→12:04)
--- NOTE | 2016-07-13 11:34 | NUR ---
Off unit To PICC suite via bed at ~11:20. Report given to Hali.
--- NOTE | 2016-07-13 12:31 | PCM.DIMED ---
Discharge Instructions Date of Service Jul 13, 2016 Dates of Hospitalization Jul 06, 2016 at 20:39 Discharge Diagnosis Discharge Diagnosis sepsis due to grashong catheter infection, anemia of chronic disease, esophageal dysmotility, chronic pain syndrome, severe gerd Diet Other (pl eat diet low in acids. Avoid coffee, chocolate, citrus fruit. Elevate bed for seep. Do not eat 2 hrs before bed time) Activity No restrictions Call your provider Fever or Chills, Shortness of breath, Bleeding, Chest pain, Vomitting, Excessive diarrhea, Weakness (unilateral), Other Patient Instructions Please follow up with Dr. Waldrop as scheduled before. Please follow up with Dr. Abbasi in 2 weeks Please follow up with your PCP in 2 weeks. Folloq up H&H in 2 weeks prior to PCP follow up. Deborah Ta DO Jul 13, 2016 12:31
[2016-07-13] MEDS ORDERED: Sodium Chloride LOK Flush 10 mL Syringe IVFLUSH PRN ×2 (12:50)
[2016-07-13 13:00] VITALS: BP 110/74; PULSE 67; RESP 14; O2SAT 95
[2016-07-13 13:16] VITALS: BP 112/76; PULSE 60; RESP 15; O2SAT 94
--- NOTE | 2016-07-13 13:40 | NUR ---
Return to [facility] Pt recovered in room by loren SU. Report received from [facility] at 13:40 and resumed care of pt at this time. Pt is alert and oriented, VSS. Complaints of pain and nausea are at baseline. Pain meds just admin by Anton.
[2016-07-13 13:45] VITALS: BP 113/73; PULSE 60; RESP 15; O2SAT 95
--- NOTE | 2016-07-13 13:47 | NUR ---
Recovery Report given to GEORGES Daugherty. stable vital signs. Scheduled Flexeril given for pain 10/10 back pain. Last PRN IV Diludid approx [address] Ta in to see patient. Stable oxygenation. patient alert awake and eating pudding. Tolerated well Fluids.
--- NOTE | 2016-07-13 13:54 | DRSVH ---
PROCEDURE: 1. Right internal jugular venography. 2. Right subclavian PICC placement. 3. Ultrasound guidance for right internal jugular vein access. 4. Ultrasound guidance for right subclavian vein access. 5. Conscious sedation x57 minutes. INDICATIONS: Needs intravenous access TECHNIQUE: The indications, alternatives, benefits, risks, and complications of the procedure were e xplained to the patient and any family members present. Informed written consent was obtained and pl aced in the chart. The patient was brought to the angiography suite, and conscious sedation was admi nistered intravenously by residential staff, while continuous cardiorespiratory monitoring was pe rformed. Maximum sterile barrier technique was employed per standard protocol, including hand hygiene, cap, ma sk, sterile gown and gloves, and 2% chlorhexidine. Sterile ultrasound probe cover was also utilized. 1% lidocaine was used for local anaesthesia. Under sonographic guidance, the right internal jugular vein was accessed with a Micropuncture set. Multiple times were made to advance a wire centrally, wh ich were unsuccessful. Contrast was injected for a right internal jugular venography. Repeated attemp ts were made using a Glidewire and 4 [place] Kumpe catheter, to access the central veins, which are un successful. Subsequently, the right subclavian vein was accessed under sonographic guidance with a mi cropuncture set. The peel-away sheath was advanced, and a PICC catheter was cut to the appropriate le ngth, and advanced, tip of which was placed at the cavoatrial junction. The patient tolerated the procedure without difficulty and was in stable condition at the conclusion of the procedure. COMPARISON: None. FINDINGS: The right internal jugular vein is patent by ultrasound. There is chronic appearing high-grade stenos is of the right inferior jugular vein at its junction with the right brachiocephalic vein. Right subc lavian vein is patent by ultrasound. Fluoroscopic imaging demonstrates tip of the PICC at the cavoatr ial junction. IMPRESSION: 1. 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 2. Right subclavian PICC placement. Dictated by: Giovanny Murray M.D. on 07/13/2016 at 13:49 Approved by: Giovanny Murray M.D. on 07/13/2016 at 13:52
--- NOTE | 2016-07-13 16:08 | NUR ---
Discharge To home with mother and son via private vehicle. R hand peripheral IV discontinued intact. PICC in place for home infusion. Per pt, home medications set up with other provider and [facility]. All belongings sent with pt. Pt expresses understanding of all discharge instructions and care notes.
--- NOTE | 2016-07-13 16:58 | NUR ---
Social Work- Discharge Data: EMR reviewed. Pt is on day 7 of hospitalization for abscess per H&P. Pt to discharge today. Pt to receive PICC today prior to discharge. JOSE spoke with Cathy from [facility] regarding pt's discharge plan. JOSE faxed over discharge orders and clinicals to [phone]. JOSE received call from Cathy regarding patients line access at discharge, JOSE referred questions to bedside and chargeback specialist. Pt to discharge home with mother to transport via POV. Assessment: Pt who is independent at base and open with [facility] Plan: Pt to discharge home with line access, resume [facility]. Pt's mother to transport via POV. Jessy Koch, GRADES 9 THRU [employer] VISITING TEACHER
--- NOTE | 2016-07-13 20:51 | PCM.DC.MED ---
Discharge Summary Date of Service Jul 13, 2016 Dates of Hospitalization Date of Hospital Admission Jul 06, 2016 at 20:39 Date of Discharge: Jul 13, 2016 Providers: Admitting Physician: Radha Stone DO Primary Care Physician: Rey Del Real MD Attending Physician: Radha Stone DO Diagnosis at Time of Discharge Diagnosis at Time of Discharge sepsis due to grashong catheter infection, anemia of chronic disease, esophageal dysmotility, chronic pain syndrome, severe gerd Consultations general surgery, infectious disease Procedures XRay, CTs & MRIs Chest x-ray performed 07/06/2016 IMPRESSION: No acute disease. Dictated by: Amanda Degroot M.D. on 07/06/2016 at 20:46 [facility] Diagnostic Imaging Department [place], [place] [id number] Patient Name: KAYLA LARIOS MR#: [id number] Location: [facility] Ordering Phys: Deborah Ta DO Date of Service: 07/09/16 1336 PROCEDURE: X-RAY LEFT FOOT COMPLETE, MINIMUM THREE VIEWS ([id number]) INDICATIONS: pain, swelling TECHNIQUE: 3 views of the foot were acquired. COMPARISON: [facility], CR, XR FOOT 3VW LT, 06/09/2016, 11:49. FINDINGS: Bones: No fractures or dislocations. No suspicious bony lesions. Mild facet joint degeneration with prominent dorsal osteophytes. Calcaneal spurring. Soft tissues: No tibiotalar joint effusion. Achilles tendon appears normal. IMPRESSION: No displaced fracture seen. If there is continued pain, followup exam or additional imaging such as MRI or CT could be performed for further assessment. Dictated by: Dennys Malhotra [facility] Interpreted: Jeanne Garcia MD on 07/09/2016 at 15:09 Transcribed by: MAGED on 07/09/2016 at 15:10 Approved by: Jeanne Garcia MD, PhD on 07/09/2016 at 16:35 [facility] Diagnostic [place] [address] Patient Name: KAYLA LARIOS MR#: [id number] Location: [facility] Ordering Phys: Deborah Ta DO Date of Service: 07/09/16 1336 PROCEDURE: X-RAY LEFT FOOT COMPLETE, MINIMUM THREE VIEWS ([id number]) INDICATIONS: pain, swelling TECHNIQUE: 3 views of the foot were acquired. COMPARISON: [facility], CR, XR FOOT 3VW LT, 06/09/2016, 11:49. FINDINGS: Bones: No fractures or dislocations. No suspicious bony lesions. Mild facet joint degeneration with prominent dorsal osteophytes. Calcaneal spurring. Soft tissues: No tibiotalar joint effusion. Achilles tendon appears normal. IMPRESSION: No displaced fracture seen. If there is continued pain, followup exam or additional imaging such as MRI or CT could be performed for further assessment. Dictated by: Dennys Malhotra RRA Interpreted: Jeanne Garcia MD on 07/09/2016 at 15:09 Transcribed by: MAGED on 07/09/2016 at 15:10 Approved by: Jeanne Garcia MD, PhD on 07/09/2016 at 16:35 Invasive Procedures 07/09/16 right subclavian PICC line placement by general surgery Brief History Patient is a pleasant 55-year-old woman with interesting medical history of GERD , esophageal dysmotility, chronic pain who presented to the emergency department from surgeon's office for evaluation of central line infection, IV placement and administration of scheduled IV medications. She had a Groshong catheter in place to receive numerous medications that she could not consume due to the esophageal dysmotility. Last week the patient was found to have an infected catheter site and started on 500 mg of Keflex, however the infection progressed and developed a golf ball size abscess at the catheter insertion site. Patient was seen by Dr. Carlton today, he performed an I&D of 3 separate sites along patient's chest, Dr. Matamoros sent the patient to the emergency department to have IV antibiotics given. She received Protonix, promethazine, which have been scheduled but was unable to receive this today due to the complications of her Groshong catheter. She denies any lightheadedness, dizziness, chest pain that is not associated with a Groshong catheter or I&D sites, no shortness of breath, nausea is becoming under control after receiving IV medications, no pain in the extremities, no fever, no chills, she endorses having some itching to her arms, swelling in her legs which she claims comes and goes, and says she's had weakness in the previous days causing making it difficult to be up and about. No dysuria or urgency. Chronic joint pain in left knee. Presentation to the emergency department vital signs were 36 0C, heart rate 105 , respiratory rate 18, blood pressure 140/96, and satting 95% on room air White blood cells 4.6, normal differential, CMP: Sodium 132, otherwise CMP unremarkable. Chest x-ray: "No acute disease" Patient has a list of high risk medications including methadone, hydromorphone, takes promethazine and Protonix IV scheduled daily. Medication reconciliation was performed by the emergency room pharmacist. Additionally the patient has numerous allergies, please see list Hospital Course 55-year-old woman with chronic pain, previous Groshong catheter placement in place for 3 years, receiving pain medications and antinausea medications times daily presented with catheter insertion site infection, status post abscess drainage. She is currently getting her medications via an IV acute sepsis, secondary to central line infection present on admission, treatment initiated: Resolved -Heart rate 105 on presentation, temperature 36.0, subjective weakens, identified source infected catheter site mid chest: Groshong catheter was removed -She was initially managed on Vanco and Zosyn. Both of these were discontinued today. Her blood cultures are negative to date day #3( -ID is consulted, they gave her dalbivancin: We appreciate their recommendations. They recommend holding putting in any lines into her at this time. Her site of Groshong catheter is dry and clean and nonpurulent on the day of discharge.. Patient underwent right subclavian PICC line placement today prior to discharge. -Two-week follow-up with Dr. Abbasi is set up Acute infected/purulent/abscessed Groshong catheter site, present on admission, treatment ongoing -Blood cultures from outpatient showed no growth to date - Blood cultures obtained and pending results currently no growth to date -UA culture negative -- Antibiotics as above Acute hyponatremia, present on admission: Resolved -Continue to monitor with daily labs Anemia of chronic disease: She is started on iron supplementation after reviewing the iron panel. Her B12 levels were normal but her folate levels lab failed to detect due to hemolysis of the specimen. - Acute urticarial rash, waxing and waning, present on admission, evaluation and treatment ongoing -Resolved -- Offered to Eucerin Chronic esophageal dysmotility/spasm - Continue home pain medication and methadone Chronic severe GERD, improved, present on admission -At this time we are unable to continue the promethazine as we do not have any in stock. Continue Compazine and Zofran. He checked with pharmacy in today they still do not have an expected date as to when they will get the supply -- We will explained to the patient that she is on her IV promethazine An pantoprazole for her GI provider at [facility] Dr. todd. In further management of these IV medications per Dr. todd. She will have to get her prescription filled from him as this is not a medication we have started in the hospital setting.. She is agreeable to this plan. Right foot pain: X-ray was done yesterday showed several bony spurs several bony spurs. Patient declined treatment options at this time. #Chronic stable medical conditions Hypomagnesemia - replete as necessary Vitamin D deficiency -Continue home medication necessary Anemia of chronic disease: She started on iron supplementation Disposition: Current plan is for her to get a PICC line on Saturday and go home. Exam Vital Signs (Last) Date Time Temp Pulse Resp B/P Pulse Ox O2 Delivery O2 Flow Rate FiO2 07/13/16 09:33 36.7 64 18 131/81 95 Room Air Exam Gen.: No acute distress lying in bed, appears drowsy HEENT: Normocephalic, atraumatic Heart: Regular rate and rhythm, grade 1+ systolic murmur without any radiation Lungs clear to auscultation anteriorly Abdomen soft non distended Neuro: no focal deficits Test 07/06/16 19:20 07/07/16 00:10 07/07/16 05:40 07/07/16 19:40 Lactic Acid Level 0.6mmol/L (0.4-2.0) Hold Dawson Top Tube Received (Received) Urine Color Yellow (YELLOW) Urine Appearance Clear (CLEAR,HAZY) Urine pH 5.5 (5.0-8.0) Urine Specific [place] 1.010 (1.003-1.035) Urine Protein Negativemg/dL (NEG,TRACE) Urine Glucose (UA) Negativemg/dL (NEGATIVE) Urine Ketones Negativemg/dL (NEGATIVE) Urine Occult Blood Negative (NEGATIVE) Urine Nitrite Negative (NEGATIVE) Urine Bilirubin Negative (NEGATIVE) Urine Urobilinogen Normalmg/dL (NORMAL) Urine Leukocyte Esterase Small (NEGATIVE) Urine RBC 0-2/hpf (0-2) Urine WBC 6-10/hpf (0-5) Urine Epithelial Cells Occasional/hpf (NONE-MOD) Urine Crystals None seen (NONE SEEN) Urine Bacteria Few/hpf (NONE-FEW) Urine Hyaline Casts None/lpf (NONE) Urine Granular Casts None seen (NONE SEEN) Urine Waxy Casts None seen (NONE SEEN) Urine Red Blood Cell Casts None seen (NONE SEEN) Urine White Blood Cell Casts None seen (NONE SEEN) Urine Mucus None seen (None Seen) Urine Trichomonas None seen (NONE SEEN) Urine Yeast None (NONE SEEN) Urinalysis Comment None Urine Culture Reflexed Indicated Magnesium Level 1.5mg/dL (1.6-2.6) Vancomycin Level Trough 17.5mcg/mL Test 07/10/16 02:25 07/10/16 07:15 07/12/16 06:20 07/13/16 06:20 Iron Level 35ug/dL (35-150) Total Iron Binding Capacity 246ug/dL (250-450) Percent Iron Saturation 14%sat (15-50) Unsaturated Iron Binding 210.8ug/dL Ferritin 61ng/mL (13-150) Vitamin B12 Level 875pg/mL (211-946) Folate 17.9ng/mL (>3.0) White Blood Count 3.1th/mm3 (3.8-10.1) Red Blood Count 4.05mil/mm3 (3.90-5.20) Hemoglobin 10.6g/dL (12.0-15.6) Hematocrit 34.2% (35.0-46.0) Mean Corpuscular Volume 84.4fL (81-100) Mean Corpuscular Hemoglobin 26.2pg (27.0-35.0) Mean Corpuscular Hemoglobin Concent 31.0% (32.0-37.0) Red Cell Distribution Width 14.0% (12.3-15.4) Platelet Count 305bil/L (150-400) Neutrophils (%) (Auto) 36.8% (40-74) Lymphocytes (%) (Auto) 53.1% (14-46) Monocytes (%) (Auto) 9.8% (4-12) Eosinophils (%) (Auto) 0% (0-5) Basophils (%) (Auto) 0% (0-3) Sodium Level 137mEq/L (134-144) Potassium Level 4.7mEq/L (3.5-5.2) Chloride Level 100mEq/L (97-108) Carbon Dioxide Level 25mmol/L (18-29) Blood Urea Nitrogen 6mg/dL (6-24) Creatinine 0.71mg/dL (0.57-1.00) Estimat Glomerular Filtration Rate 123mL/min (>59) Glucose Level 86mg/dL (60-99) Calcium Level 8.9mg/dL (8.5-10.1) Total Bilirubin 0.2mg/dL (0.0-1.2) Aspartate Amino Transf (AST/SGOT) 47U/L (0-50) Alanine Aminotransferase (ALT/SGPT) 27U/L (0-32) Alkaline Phosphatase 122U/L (25-150) Total Protein 5.5g/dL (6.4-8.4) Albumin 2.8g/dL (3.4-5.0) Microbiology Results Blood cultures 2 are negative to date Discharge Medications Discharge Medications Cholecalciferol (Vitamin D3) (Vitamin D3) 50,000 Unit Capsule 50,000 UNIT PO WEEKLY (Reported) SUNDAYS Cyanocobalamin (Cyanocobalamin Injection) 1,000 Mcg/1 Ml Vial 1,000 MCG IM Monthly (Reported) OF THE Hydromorphone (Hydromorphone) 4 Mg Tablet 6 MG PO QID (Reported) 0800,1200,1600,0000 Magnesium Chloride (Slow-Mag) 64 Mg Tablet 64 MG PO DAILY (Reported) Methadone (Methadone) 5 Mg/5 Ml Solution 7.5 MG PO QAM AT 0600 (Reported) TAKE 7.5 MG PO IN AM, 12.5 MG PO AT 1400, AND 20 MG AT HS Methadone (Methadone) 5 Mg/5 Ml Solution 20 MG PO HS AT 2200 (Reported) TAKE 7.5 MG PO IN AM, 12.5 MG PO AT 1400, AND 20 MG AT HS Methadone (Methadone) 10 Mg/1 Ml Oral.conc 12.5 MG PO DAILY AT 1400 (Reported) TAKE 7.5 MG PO IN AM, 12.5 MG PO AT 1400, AND 20 MG AT HS Methocarbamol (Methocarbamol) 750 Mg Tablet 750 MG PO TID (Reported) TAKES AT 0600, 1400, 2200 Pantoprazole Sodium (Protonix IV) 40 Mg Vial 40 MG IV Q 8HRS (Reported) TAKES AT 0600, 1400, 2200 Promethazine (Promethazine) 50 Mg/1 Ml Ampul 50 MG IV Q 4HRS PRN (Reported) As needed Acetaminophen (Acetaminophen) 325 Mg Tablet 650 MG PO Q6H PRN PRN For Fever ( Reported) Clobetasol Propionate/Emoll (Clobetasol Emollient 0.05% Crm) 15 Gm Cream..g. 1 APPL TP BID PRN PRN PRN (Reported) Fluticasone Propionate (Flonase Allergy Relief) 50 Mcg/Actuation [place].susp 1 SPRAY NS DAILY PRN PRN RHINITIS (Reported) Tetrahydrozoline HCl/Zn Sulf (Visine Allergy Relief Drop) 15 Ml Drops 2 DROP BOTH_EYES Q2H PRN PRN DRY EYES (Reported) Followup Plan Follow-up plan In addition to follow up with PCP, GI, ID, surgery plans to follow up for a more permanent catheter with her in a week Discharge Diet: Other (pl eat diet low in acids. Avoid coffee, chocolate, citrus fruit. Elevate bed for seep. Do not eat 2 hrs before bed time) Discharge Activity: No restrictions Patient Instructions Please follow up with Dr. Todd as scheduled before. Please follow up with Dr. Abbasi in 2 weeks Please follow up with your PCP in 2 weeks. Folloq up H&H in 2 weeks prior to PCP follow up. Deborah Ta DO Jul 13, 2016 13:08
[2016-08-16] MEDS ORDERED: CEPH-512 PO (18:32)
[2016-08-16] MEDS ORDERED: LEVO25CA2 PO (18:32)
== END 2016-07-13 16:08 | disposition home or self-care (01) | DRG 314 ==
LOC: SED 16:18 → OSC 20:39
PROVIDERS: ADMIT Internal Medicine; ATTEND Internal Medicine
PROC: 02HV33Z Insertion of Infusion Device into Superior Vena Cava, Percutaneous Approach (ICD-10-PCS; principal; 2016-07-13)
PROC: B5181ZA Fluoroscopy of Superior Vena Cava using Low Osmolar Contrast, Guidance (ICD-10-PCS; 2016-07-13)
DX: T80.211A Bloodstream infection due to central venous catheter, initial encounter (principal); A41.9 Sepsis, unspecified organism; L02.213 Cutaneous abscess of chest wall; K22.4 Dyskinesia of esophagus; E55.9 Vitamin D deficiency, unspecified; G89.4 Chronic pain syndrome; K21.9 Gastro-esophageal reflux disease without esophagitis; D63.8 Anemia in other chronic diseases classified elsewhere; B95.62 Methicillin resistant Staphylococcus aureus infection as the cause of diseases classified elsewhere; Z98.84 Bariatric surgery status

== ENCOUNTER 2016-07-16 14:49 | Emergency (ER) | payer MEDICARE ==
[~2016-07-16 14:49] MED LIST changes: +ACET325T51 PO; -FLUT16SP2 NS; +FLUT9.9S NS; -MAGN500C4 PO; +METH10OR11 PO; +SLO64 PO; +TETR15DR77 BOTH_EYES
[2016-07-16 14:56] VITALS: BP 125/77; PULSE 75; RESP 15; O2SAT 100
--- NOTE | 2016-07-16 15:46 | ED.REPORT ---
HPI-General Illness Date of Service Jul 16, 2016 ED Provider: Lyubov Barillas History of Present Illness: 55-year-old female here after her PICC line was accidentally pulled out just REGROOVER. She was taking off her sweater and it got caught on the sweater completely coming out landing on the floor. It bled a little bit she put a bandage on it. She has a history of esophageal dysmotility and severe pain issues as her PICC line for promethazine and Protonix. Her plan was to have this PICC line for a week and then have another Groshong placed. This PICC line placed 3 days ago. STates she needs to have it placed under sedation. History of a recent hospitalization 7 days ago for an infected Groshong in her left chest. PCP Dr. Galindo Nursing Notes Stated Complaint: BROKEN PICC LINE Chief Complaint: General Complaint Nursing Notes Reviewed: Yes Allergies: Coded Allergies: codeine (Verified Allergy, Intermediate, Hives, 07/16/16) diclofenac sodium (Verified Allergy, Intermediate, Rash, 07/16/16) ibuprofen (Verified Allergy, Intermediate, Nausea,Vomiting, 07/16/16) zolpidem (Verified Allergy, Intermediate, sleep walking/ abnormal activity , 07/16/16) Adhesives (Unverified Allergy, Unknown, UNKNOWN (NO PLASTIC TAPE-HYPA FIX OK), 07/16/16) Tetracyclines (Unverified Allergy, Unknown, UNKNOWN, 07/16/16) capsaicin (Verified Allergy, Unknown, Blood blisters, 07/16/16) menthol (Verified Allergy, Unknown, blood blisters, 07/16/16) aspirin (Verified Adverse Reaction, Severe, Contraindicated post gastric bypass, 07/16/16) morphine (Unverified Adverse Reaction, Severe, NO ALLERGY-DRUG NOT EFFECTIVE, 07/16/16) Uncoded Allergies: NSAIDS (Allergy, Unknown, WITH GASTRIC SURGERY NO NSAIDS, 02/04/16) Scheduled Cholecalciferol (Vitamin D3) (Vitamin D3) 50,000 Unit Capsule 50,000 UNIT PO WEEKLY SUNDAYS Cyanocobalamin (Cyanocobalamin Injection) 1,000 Mcg/1 Ml Vial 1,000 MCG IM Monthly OF THE Hydromorphone (Hydromorphone) 4 Mg Tablet 6 MG PO QID 0800,1200,1600,0000 Magnesium Chloride (Slow-Mag) 64 Mg Tablet 64 MG PO DAILY Methadone (Methadone) 5 Mg/5 Ml Solution 7.5 MG PO QAM AT 0600 TAKE 7.5 MG PO IN AM, 12.5 MG PO AT 1400, AND 20 MG AT HS Methadone (Methadone) 5 Mg/5 Ml Solution 20 MG PO HS AT 2200 TAKE 7.5 MG PO IN AM, 12.5 MG PO AT 1400, AND 20 MG AT HS Methadone (Methadone) 10 Mg/1 Ml Oral.conc 12.5 MG PO DAILY AT 1400 TAKE 7.5 MG PO IN AM, 12.5 MG PO AT 1400, AND 20 MG AT HS Methocarbamol (Methocarbamol) 750 Mg Tablet 750 MG PO TID TAKES AT 0600, 1400, 2200 Pantoprazole Sodium (Protonix IV) 40 Mg Vial 40 MG IV Q 8HRS TAKES AT 0600, 1400, 2200 Pantoprazole Sodium (Protonix Granules) 40 Mg Granpkt.dr 40 MG PO TID Promethazine (Promethazine) 50 Mg/1 Ml Ampul 50 MG IV Q 4HRS PRN Promethazine (Promethazine) 6.25 Mg/5 Ml Syrup 50 MG PO Q4H Scheduled PRN Acetaminophen (Acetaminophen) 325 Mg Tablet 650 MG PO Q6H PRN PRN For Fever Clobetasol Propionate/Emoll (Clobetasol Emollient 0.05% Crm) 15 Gm Cream..g. 1 APPL TP BID PRN PRN PRN Fluticasone Propionate (Flonase Allergy Relief) 50 Mcg/Actuation [place].susp 1 SPRAY NS DAILY PRN PRN RHINITIS Tetrahydrozoline HCl/Zn Sulf (Visine Allergy Relief Drop) 15 Ml Drops 2 DROP BOTH_EYES Q2H PRN PRN DRY EYES General Time Seen by MD: 15:23 Chief Complaint Other (picc line fell out) Hx Obtained From: Patient Sudden in Onset?: Yes Onset Occurred: Just prior to arrival Similar Sx Previous: Yes Past Medical History Past Medical History Hypotension Esophageal dysmotility GERD Chronic pain Past Surgical History Gastric bypass Family History Noncontributory Smoking History Former Smoker Social History Other Social History: Good social support, Local resident Ambulatory Status Independent Review of Systems Having usual abdominal pain, no new pain associated with picc line Full Review of Systems Constitutional: Denies: Fever GI: Reports: Abdominal pain Complete sys rev & neg: except as marked. Physical Exam pt brings in picc line with her, appears intact Vital Signs Vital Signs Date Time Temp Pulse Resp B/P Pulse Ox O2 Delivery O2 Flow Rate FiO2 07/16/16 18:38 37.1 86 15 135/63 97 Room Air 07/16/16 17:57 37.1 86 135/63 97 Room Air 07/16/16 14:56 37.4 75 15 125/77 100 Room Air Initial VS: Reviewed General/Constitutional: Well-developed Head / Eyes: Atraumatic Respiratory: Breath sounds normal, Clear to auscultation, No respiratory distress Cardiovascular: Regular rate & rhythm, Heart sounds normal, Intact distal pulses Abdomen / GI: Soft Skin: Warm, Dry, No cyanosis Neurologic: Alert, Oriented, Nonfocal Psychiatric: Mood/affect normal, Behavior normal, Normal thought content small incision luna where picc was pulled out. nontender, no swelling, on R chest. Re-Eval/Medical Decision Med Decision/Clinical Course RN called IV therapy team, they suggested calling IR to place. Will need sedation. IR called, apt tomorrow for placement.800 Will do oral meds until apt. 1800- plan established with IR. Discharge & Departure Primary Impression: Esophageal dysmotility Disposition: Home Discharge Condition All VS Reviewed: Yes Condition: Stable Patient Instructions: Acute Nausea and Vomiting (ED) Additional Instructions: Follow up tomorrow at 1215 at diagnostics. NPO (nothing by mouth) at midnight tonight. NO blood thinners or aspirin. Take meds provided instead of using picc line. return if issues in the mean time Referrals: Rey Del Real MD (PCP) EDSupervising Provider for APC: Renee Barksdale MD, Linnea K ARNP Jul 16, 2016 15:46
[2016-07-16 17:57] VITALS: BP 135/63; PULSE 86; O2SAT 97
[2016-07-16] MEDS ORDERED: [UNRECOGNIZED DRUG - CODE] PO (18:09)
[2016-07-16] MEDS ORDERED: PANT40SU PO (18:13)
[2016-07-16] MEDS ORDERED: PROM6.25 PO (18:15)
[2016-07-16 18:38] VITALS: BP 135/63; PULSE 86; RESP 15; O2SAT 97
[2016-08-16] MEDS ORDERED: LEVO25CA2 PO (18:32)
[2016-08-16] MEDS ORDERED: CEPH-512 PO (18:32)
== END 2016-07-16 18:39 | disposition home or self-care (01) ==
LOC: SED 14:49
DX: K22.8 Other specified diseases of esophagus (principal); K21.9 Gastro-esophageal reflux disease without esophagitis; Z98.84 Bariatric surgery status; Z87.891 Personal history of nicotine dependence; Z88.1 Allergy status to other antibiotic agents; Z88.5 Allergy status to narcotic agent; Z88.8 Allergy status to other drugs, medicaments and biological substances

== ENCOUNTER 2016-07-17 14:11 | Day surgery (SDC) | payer MEDICARE ==
[~2016-07-17] VITALS: Ht 168.9 cm; Wt 90.0 kg
[2016-07-17] VITALS (7 sets, daily range): BP systolic 109–132; BP diastolic 52–77; PULSE 70–94; RESP 12–16; O2SAT 93–97
--- NOTE | 2016-07-17 13:37 | NUR ---
Admitted for a PICC line placement today - line used for IV drug administration at home. PICC line placed last week was pulled out. Pt will be done with anesthesia in sleep lab technician.
--- NOTE | 2016-07-17 13:52 | PCM.HPANE ---
Patient Data Surgeon Admitting Provider: Attending Provider:Yarely Oh MD Primary Care Physician:Eliu Galindo MD Other Provider: Reason for Visit Need To Replace Picc Line Ht/WT & BMI Height (Feet): 5 Height (Inches): 6.50 Weight (Kilograms): 90.000 Body Mass Index 31.51 Allergies Coded Allergies: codeine (Verified Allergy, Intermediate, Hives, 07/17/16) diclofenac sodium (Verified Allergy, Intermediate, Rash, 07/17/16) ibuprofen (Verified Allergy, Intermediate, Nausea,Vomiting, 07/17/16) zolpidem (Verified Allergy, Intermediate, sleep walking/ abnormal activity , 07/17/16) Adhesives (Unverified Allergy, Unknown, UNKNOWN (NO PLASTIC TAPE-HYPA FIX OK), 07/17/16) Tetracyclines (Unverified Allergy, Unknown, UNKNOWN, 07/17/16) capsaicin (Verified Allergy, Unknown, Blood blisters, 07/17/16) menthol (Verified Allergy, Unknown, blood blisters, 07/17/16) aspirin (Verified Adverse Reaction, Severe, Contraindicated post gastric bypass, 07/17/16) morphine (Unverified Adverse Reaction, Severe, NO ALLERGY-DRUG NOT EFFECTIVE, 07/17/16) Uncoded Allergies: NSAIDS (Allergy, Unknown, WITH GASTRIC SURGERY NO NSAIDS, 02/04/16) Past Anesthesia History Anesthesia History: Denies:: Anesthesia Reactions, Malignant Hyperthermia Diabetes History Hx Diabetes?: No MRSA MRSA: No Medications Active Scripts Promethazine 6.25 Mg/5 Ml Syrup50 Mg PO Q4H #250 ML Ref 0 Prov:Lyubov Barillas 07/16/16 Pantoprazole Sodium (Protonix Granules)40 Mg Granpkt.dr40 Mg PO TID #3 PACKET Ref 0 Prov:Lyubov Barillas 07/16/16 Reported Medications Tetrahydrozoline HCl/Zn Sulf (Visine Allergy Relief Drop)15 Ml Drops2 Drop BOTH_ EYES Q2H PRN DRY EYES 07/06/16 Acetaminophen 325 Mg Wgncpn515 Mg PO Q6H PRN For Fever Ref 0 07/06/16 Fluticasone Propionate (Flonase Allergy Relief)50 Mcg/Actuation [place].susp1 [place] NS DAILY PRN RHINITIS 07/06/16 Magnesium Chloride (Slow-Mag)64 Mg Ywamjm25 Mg PO DAILY 07/06/16 Methadone 5 Mg/5 Ml Solution7.5 Mg PO QAM AT 0600 Ref 0 TAKE 7.5 MG PO IN AM, 12.5 MG PO AT 1400, AND 20 MG AT HS 07/14/15 Hydromorphone 4 Mg Tablet4 Mg PO ASDIRECTED Ref 0 0800,1200,1600,0000 07/14/15 Methocarbamol 750 Mg Vxvlqz615 Mg PO TID Ref 0 TAKES AT 0600, 1400, 2200 07/14/15 Cholecalciferol (Vitamin D3) (Vitamin D3)50,000 Unit Ufimdei24,000 Unit PO WEEKLY Sundays01/08/14 Promethazine 50 Mg/1 Ml Ampul50 Mg IV Q 4HRS PRN 01/08/14 Pantoprazole Sodium (Protonix IV)40 Mg Vial40 Mg IV Q 8HRS TAKES AT 0600, 1400, 2200 01/08/14 Clobetasol Propionate/Emoll (Clobetasol Emollient 0.05% Crm)15 Gm Cream..g.1 Appl TP BID PRN PRN #1 TUBE 01/08/14 Cyanocobalamin (Cyanocobalamin Injection)1,000 Mcg/1 Ml Vial1,000 Mcg IM Monthly 10TH OF THE MONTH 01/08/14 Discontinued Reported Medications Methadone 10 Mg/1 Ml Oral.conc12.5 Mg PO DAILY AT 1400 TAKE 7.5 MG PO IN AM, 12.5 MG PO AT 1400, AND 20 MG AT HS 07/06/16 Methadone 5 Mg/5 Ml Qiymnoqo86 Mg PO HS AT 2200 Ref 0 TAKE 7.5 MG PO IN AM, 12.5 MG PO AT 1400, AND 20 MG AT HS 07/14/15 History History of ENT Problems?: Yes HEENT History: Denies:: Cataracts Dysphagia Hearing Problem Sinus Problem Hx of Heart Problems?: Yes Cardiovascular History: Positive for:: Chest Pain (with esophageal spasm) Congestive Heart Failure (diastolic dysfunction) Edema (weekly) Heart Murmur Denies:: Cardiac Surgery Hypertension (90/60) Irregular Heartbeat Pacemaker Thrombophlebitis Hx of Respiratory Problem?: No Respiratory History: Denies:: Asthma COPD Chest Surgery Cough Dyspnea Emphysema Hemoptysis Oxygen Administration Pneumonia Pulmonary Embolism Tuberculosis Use of C-PAP Machine (had sleep study, said she stop breathing 17x hr) Hx Neurologic Problems?: No Neurological History: Positive for:: Headaches (resolved, related to stress) Denies:: Alzheimer's Disease CVA Dementia Dizziness Multiple Sclerosis Parkinson's Disease Seizures Hx of GI Problems?: Yes Gastrointestinal History: Positive for:: Gastroesphageal Reflux Gastrointestinal Bleeding (HX OF SBO, Gregory-en-Y, multiple complications) Heartburn Denies:: Cirrhosis Diverticulitis Hepatitis Hiatal Hernia Rectal Bleeding Hx of Problems?: No Genitourinary History: Denies:: HX of Hemodialysis Kidney Stones Urinary Tract Infection HX of Peritoneal Dialysis: No Female Hx: Positive for:: Endometriosis Denies:: Currently Pelvic Inflammatory Problems with Breasts? Skin History: Positive for:: History Skin Disorders? (exzema, psoriasis) Denies:: Pressure Ulcers Hx Musculoskeletal Problems?: Yes Musculoskeletal History: Positive for:: Back Injury Musculoskeletal Trauma (RECURRENT FALLS) Denies:: Degenerative Joint Joint Replacement Systemic Lupus Hx of Psycho/Social Problems?: Yes Psycho Social History: Positive for:: Anxiety Denies:: Bipolar Disorder Hx Depression Suicide Attempt Hx Surgeries?: Yes (numerous) Hx Any Other Health Problems?: Yes Other History: Positive for:: Hospitalization Denies:: Cancer Endocrine Disease Thyroid Disease History Blood Transfusions: Positive for:: Accept Blood Products? Denies:: Blood Transfuse Reaction Blood Transfusions Hx Diabetes: No Hx Alcohol Use: NoAlcoholic Drinks Per Day: noneHx Substance Use: Yes ( prescribed) Smoking Status: Former Smoker Have You Smoked inLast 12 mo: No Stop/Bang Risk Assessment Category Category 1A: Patient has history of documented sleep apnea, and HAS NOT received any narcotic, sedative or anesthesia administration during this stay. Category 1B: Patient has history of documented sleep apnea, and HAS received any narcotic , sedative or anesthesia administration during this stay Category 2: Patient has SUSPECTED Obstructive Sleep Apnea, and HAS received any narcotic , sedative or anesthesia administration during this stay. Category 3: Patient has SUSPECTED Obstructive Sleep Apnea and HAS NOT received narcotic, sedative or anesthesia administration during this stay. Category 4: Outpatient in Procedural Areas with known sleep apnea or who screen positive for High Risk via the STOP/BANG questionnaire. Exam Exam Vital Signs Vital Signs Date Time Temp Pulse Resp B/P Pulse Ox O2 Delivery O2 Flow Rate FiO2 07/17/16 13:29 37.2 94 16 119/63 94 Room Air General Appearance: Alert HEENT/AIRWAY: MP 2 Lungs: Clear to Auscultation Heart: Exam Unremarkable Plan Impression Patient chart reviewed, patient interviewed and anesthestic plan with risks, benefits, and alternatives discussed, and informed consent obtained. NPO Status: 01/10 2100 ASA Physical Status: ASA3 Severe Disease Anesthetic Support Modalities: Hemodynamic Monitoring Anesthetic Plan: MAC Bene/Risks/Altern/Consents: Yes HP Complete Prior to Induction: Yes Danish Rosales MD Jul 17, 2016 13:52
[~2016-07-17 14:11] MED LIST changes: +CeFAZolin 1 Gm/50 mL D5W Duplex Bag IV ONE; +PANT40SU PO; +PROM6.25 PO; +[UNRECOGNIZED DRUG - CODE] PO
[2016-07-17] MEDS ORDERED: Ondansetron 2 mg/mL 2 mL Inj ONE (14:12)
[2016-07-17] MEDS ORDERED: fentaNYL-PF 50 mCg/mL 2 mL Inj ONE (14:12)
[2016-07-17] MEDS ORDERED: Propofol 10,000 mCg/mL 20 mL Inj ONE (14:12)
--- NOTE | 2016-07-17 15:42 | NUR ---
Returned from clinical lab specialist with Groshong placed in the left chest. Pt is awake and talking upon return to [facility] bed 1. Plan for D/C by 1630.
--- NOTE | 2016-07-17 15:55 | PCM.ANEP1 ---
Post Anesthesia Phase 1 PACU Phase 1 Assessment Vital Signs Vital Signs Date Time Temp Pulse Resp B/P Pulse Ox O2 Delivery O2 Flow Rate FiO2 07/17/16 15:40 76 14 132/77 96 Room Air 07/17/16 15:35 37.0 76 12 118/70 96 Room Air 07/17/16 13:29 37.2 94 16 119/63 94 Room Air Anesthetic Administered: MAC Level of Alertness: Awake, talking GALLAGHER's with Equal Strength: Yes Pain: Yes Nausea or Vomiting: No Oxygen Delivery: Room Air Lungs: Clear to Auscultation Dermatome Level: Full Sensation Ayaz Guzman MD Jul 17, 2016 15:55
--- NOTE | 2016-07-17 15:56 | PCM.ANEP2 ---
Post Anesthesia Evaluation ASA/CMS Post Anesthesia VS in Patient's Normal Range?: Yes Resp Stable; Airway Patent?: Yes CV Function & Hydration Stable: Yes Mental Status Recovered?: Yes Pain control Satisfactory?: Yes N/V Control Satisfactory?: Yes Ayaz Guzman MD Jul 17, 2016 15:56
--- NOTE | 2016-07-17 16:35 | NUR ---
D/C note - Pt recovery completed at 1630. Home care instructions reviewed with Patient and patient's foster Mom, "Sara". Pt has had sedation with Anesthesia today - home care instructions also reviewed. Pt has a home appliances mechanic that will come 07/18/16 to change the initial groshong dressing at patient's home. tar kettle runner follows patient once a week to assess central line status. Pt driven home today by her foster mom, "Sara". D/C home in Wheelchair.
--- NOTE | 2016-07-17 16:43 | DRSVH ---
PROCEDURE: CV TUNNEL CATH PLCMNT 1. Sonographic guidance for venous access. 2. Deep sedation provided by the anesthesiology service. 3. Left internal jugular vein tunneled Groshong catheter placement. 4. Fluoroscopic guidance for catheter placement. INDICATIONS: Long-term intravenous access needed TECHNIQUE: The indications, alternatives, benefits, risks, and complications of the procedure were e xplained to the patient and any family members present. Informed written consent was obtained and pl aced in the chart. The patient was brought to the angiography suite, and conscious sedation was admi nistered intravenously by senior care staff, while continuous cardiorespiratory monitoring was pe rformed. Maximum sterile barrier technique was employed per standard protocol, including hand hygiene, cap, ma sk, sterile gown and gloves, and 2% chlorhexidine. Sterile ultrasound probe cover was also utilized. 1% lidocaine was used for local anaesthesia. Under sonographic guidance, the left internal jugular v ein was accessed with a Micropuncture set. An 0.035J wire was advanced into the vena cava. Subcutan eous tunnel was created within the left anterior chest wall, through which a 9 Divehi double lumen tu nneled Groshong catheter was advanced. Following sequential venotomy tract dilation, the catheter wa s advanced through the peel-away sheath and the tip was placed in the right atrium. Peel-away sheath was removed. Adequate flow was obtained through both lumens of the catheter. The venotomy was clos ed with Dermabond and the catheter was fastened to the skin with nonabsorbable suture. Both lumens we re flushed with heparinized saline. The patient tolerated the procedure without difficulty and was in stable condition at the conclusion of the procedure. COMPARISON: [facility], XA, CV TUNNEL CATH PLCMNT, 07/13/2016, 11:42. FINDINGS: The left internal jugular vein is patent by ultrasound. Fluoroscopic imaging demonstrates tip of the catheter in the right atrium. IMPRESSION: Right internal jugular vein tunneled Groshong catheter placement using sonographic and fluoroscopic g uidance. Dictated by: Yarely Oh M.D. on 07/17/2016 at 16:38 Approved by: Yarely Oh M.D. on 07/17/2016 at 16:42
[2016-08-16] MEDS ORDERED: CEPH-512 PO (18:32)
[2016-08-16] MEDS ORDERED: LEVO25CA2 PO (18:32)
== END 2016-07-17 23:59 | disposition home or self-care (01) ==
LOC: EDSTATUS 14:11 → SOUO 14:11
PROVIDERS: ATTEND Radiology Vascular & Interventional Radiology
DX: T80.212A Local infection due to central venous catheter, initial encounter (principal); E46 Unspecified protein-calorie malnutrition; G47.33 Obstructive sleep apnea (adult) (pediatric); Z68.34 Body mass index [BMI] 34.0-34.9, adult; G25.81 Restless legs syndrome; F41.9 Anxiety disorder, unspecified
CPT/HCPCS: 36558; 76937; 77001; C1769; C1887; J2250; J2405; J3010; Q9967

== ENCOUNTER 2016-08-17 01:20 | Observation (INO) | payer MEDICARE ==
[~2016-08-17] VITALS: Ht 168.9 cm; Wt 91.4 kg
[~2016-08-17 01:20] MED LIST changes: -ACET325T51 PO; +CEPH-512 PO; -CeFAZolin 1 Gm/50 mL D5W Duplex Bag IV ONE; +LEVO25CA2 PO; -METH10OR11 PO; -PANT40SU PO; -PROM6.25 PO; -TETR15DR77 BOTH_EYES; -[UNRECOGNIZED DRUG - CODE] PO
--- NOTE | 2016-08-17 12:36 | DRSVH ---
PROCEDURE: X-RAY CHEST ONE VIEW, PORTABLE ([id number]) INDICATIONS: Groshong catheter placement TECHNIQUE: One view of the chest was acquired. COMPARISON: [facility], CR, XR CHEST 2VW, 07/06/2016, 20:13. [facility], CR, CHEST 1VW (PORTABLE), 06/15/2013, 15:46. [facility], CR, CHEST 1VW (PORTABLE), 05/22/2011 , 18:19. FINDINGS: Surgical changes and devices: Left-sided central venous catheter is present, tip of which is in the u pper SVC. Lungs and pleura: No pleural effusions or pneumothorax. Lungs are clear. Mediastinum: Mediastinal contours appear normal. Heart size is normal. Bones and chest wall: No suspicious bony lesions. Overlying soft tissues appear unremarkable. IMPRESSION: No complication following central venous catheter placement. Dictated by: Giovanny Murray M.D. on 08/17/2016 at 12:34 Approved by: Giovanny Murray M.D. on 08/17/2016 at 12:35
[2016-08-17 12:57] VITALS: BP 121/76; PULSE 90; RESP 18; O2SAT 97
--- NOTE | 2016-08-17 13:14 | NUR ---
Patient admitted at 12:00 for evaluation of groshong catheter with possible replacement.Dr Oh obtained input from iv therapy nurse regarding catheter. Portable CXR completed, report per Dr Oh. Patient reports burning in chest after iv administration of promethazine and protonix.She is unable to take P.O meds becauze of continued nausea and dry heaving.She reports chronic left upper abdominal pain after gastric bypass surgery, requiring multiple admissions.Pt is requesting that she be admitted for pain control. She had trasitioned off dilaudid to percocet but that is not effective and will transition back to dilaudid. However there will be a 2 week span of time before she can get pain rx filled Her friend spoke to me in private and said that patient is having suicidal ideation with dreams of ending her life due to her chronic pain. Dr Oh informed of this, who will request that hospitalist physcian admit patient.I also informed patient that we are procedurally delayed and she is amenable to waiting.
[2016-08-17] MEDS ORDERED: SODIUM CHLORIDE 0.9% IV ONE (13:15)
[2016-08-17] MEDS ORDERED: PROMETHAZINE IV ONE (13:15)
[2016-08-17] MEDS ORDERED: HYDROmorphone 1 mg/mL Inj IVPUSH ONE (13:15)
--- NOTE | 2016-08-17 13:48 | NUR ---
Groshong catheter flushes easily.Per Dr Adriano osman to use groshong. Dilaudid iv has alleviated pain, promethazine diluted in 50 ml bag and infusing.
--- NOTE | 2016-08-17 14:00 | NUR ---
Promethazine infusion completed without any complaints of burning or pain in chest.Promethazine was diluted as for a peripheral infusion though it was infused through groshong.
[2016-08-17] MEDS ORDERED: METH10OR11 PO ×2 (14:06)
--- NOTE | 2016-08-17 15:13 | NUR ---
Report called to Lisa Bettencourt on MOC. She will be going to room 250 after her procedure is completed. Pt is fairly comfortable waiting for procedure, peripheral iv inserted by Erica Vaughn.
--- NOTE | 2016-08-17 15:41 | NUR ---
Pt ready to go to label paster.She remains fairly comfortable with pain level 5/10 which is manageable for her.Report to Ana Bacon R.N. who will assume care of patient.
[2016-08-17] MEDS ORDERED: Heparin 5,000 Unit/mL Inj ONE (15:47)
[2016-08-17] MEDS ORDERED: 0.9% Sodium Chloride 1,000 ML ONE (15:48)
[2016-08-17] MEDS ORDERED: Heparin 1,000 Unit/mL 10 mL Inj ONE (15:48)
[2016-08-17] MEDS ORDERED: fentaNYL-PF 50 mCg/mL 2 mL Inj ONE ×2 (15:55→16:32)
[2016-08-17] MEDS ORDERED: Ondansetron 2 mg/mL 2 mL Inj ONE (16:22)
[2016-08-17] MEDS ORDERED: 0.9% Sodium Chloride 50 ML ONE (16:50)
[2016-08-17 17:15] VITALS: BP 146/87; PULSE 88; RESP 18; O2SAT 97
[2016-08-17 17:30] VITALS: BP 136/80; PULSE 88; RESP 18; O2SAT 97
[2016-08-17] MEDS ORDERED: Alum-Mag Hydrox-Simeth 30 mL Suspension PO PRN (18:05)
[2016-08-17] MEDS ORDERED: Ondansetron 2 mg/mL 2 mL Inj IVPUSH PRN (18:05)
[2016-08-17] MEDS ORDERED: Polyethylene Glycol (PEG) 17 Gm Powder PO PRN (18:05)
[2016-08-17] MEDS ORDERED: Fluticasone 0.05% 15 Spray/2 Gm 16 Gm Nasal Spray NASAL PRN (18:10)
[2016-08-17] MEDS ORDERED: HYDROmorphone 1 mg/mL Inj IVPUSH PRN (18:20)
--- NOTE | 2016-08-17 18:30 | NUR ---
MOC Received patient via bed from [facility]. A/O wang garcia. Patient requesting some nausea and pain medication prior to eating dinner, pharmacy yet to verify orders at this time. Explained to patient and leno to wait until verified. NOC RN will continue with care. Tolerated some jello and pudding. Will continue to monitor.
--- NOTE | 2016-08-17 19:19 | PCM.HPMED ---
Subjective Date of Service Aug 17, 2016 Primary Provider: Admitting Physician: Akua Banks MD Primary Care Physician: Eliu Galindo MD Attending Physician: Akua Banks MD Chief Complaint: Loss of Groshong, worsening pain History of Present Illness: One month ago she was admitted with an infected left Groshong catheter. She reports that it was removed and she temporarily had a PICC and then Groshong catheter was replaced on the left. She has not noted any signs of infection. However Dr. Oh noted that she appeared to have pulled back the catheter and he was going to attempt to push it back in today. However he was unable to do this and felt she needed to be admitted so that surgery could place a new access and also so that her pain could be controlled. He was concerned that she had mentioned suicidal ideations to the nurse. She tells me that she is " at the end of my rope" and has had fleeting thoughts of ending her life but says she would never do this because "I would never do that by family" Her chronic esophageal and left upper quadrant pain has been worsening. She does have an appointment with gastroenterology at [facility] regarding this in 1 week. She is also having frequent nausea and vomiting Review of Systems: Has felt cold "all the time" for the last month or so but no fevers chills or sweats. As noted above she has had worsening pain and nausea and vomiting and says she has lost 13 pounds in the past month. Otherwise review of systems is unremarkable Allergies Coded Allergies: codeine (Verified Allergy, Intermediate, Hives, 07/17/16) diclofenac sodium (Verified Allergy, Intermediate, Rash, 07/17/16) ibuprofen (Verified Allergy, Intermediate, Nausea,Vomiting, 07/17/16) zolpidem (Verified Allergy, Intermediate, sleep walking/ abnormal activity , 07/17/16) Adhesives (Unverified Allergy, Unknown, UNKNOWN (NO PLASTIC TAPE-HYPA FIX OK), 07/17/16) Tetracyclines (Unverified Allergy, Unknown, UNKNOWN, 07/17/16) capsaicin (Verified Allergy, Unknown, Blood blisters, 07/17/16) menthol (Verified Allergy, Unknown, blood blisters, 07/17/16) aspirin (Verified Adverse Reaction, Severe, Contraindicated post gastric bypass, 07/17/16) morphine (Unverified Adverse Reaction, Severe, NO ALLERGY-DRUG NOT EFFECTIVE, 07/17/16) Uncoded Allergies: NSAIDS (Allergy, Unknown, WITH GASTRIC SURGERY NO NSAIDS, 02/04/16) Home Medications Vitamin D3 50,000 units weekly Vitamin B12 1000 g IM monthly Magnesium 64 mg daily Methadone oral liquid 10 mg at 6 AM and 2 PM and 20 mg at 10 PM Protonix 40 mg IV every 8 hours Promethazine 50 mg IV every 4 hours Clobetasol emollient 0.05% cream twice a day when necessary Percocet 10-325 every 4-6 hours when necessary up to 5 tablets per 24 hours but this has not been effective at pain control so August 29 she is scheduled to switch back to her Dilaudid 4 mg every 6 hours when necessary not to exceed 5.5 tablets in 24 hours Methocarbomol 750 mg every 4 hours PMH Hypotension Esophageal dysmotility GERD Chronic pain Groshong catheter for chronic IV medication Osteoarthritis of the knees Surgical History Gastric bypass cholecystectomy Hysterectomy Appendectomy Reconnection of right Achilles tendon Tumor resection from the left fourth upper extremity digit Family History Adopted at a young age Social History Hx Alcohol Use: No Hx Substance Use: Yes (prescribed) Hx Tobacco Use: No Smoking Status: Former Smoker Additional Information , lives alone, 2 children living in [facility] power of health care attorney is her mother Exam Vital Signs Vital Sign - Last Date Time Temp Pulse Resp B/P Pulse Ox O2 Delivery O2 Flow Rate FiO2 08/17/16 17:30 88 18 136/80 97 Room Air 08/17/16 12:57 37.0 Exam General: Alert and oriented, moderate distress due to pain HEENT: Unremarkable Neck: Carotids 2+, no JVD Chest wall: No erythema or fluctuance at the area of removed Groshong Heart: Regular Lungs: Clear Abdomen: Soft, non-tender Extremities: No pedal edema Neuro: No apparent deficits Assessment & Plan # Admitted at the request of interventional radiology due to loss of central IV access and need for replacement by surgery - Consult placed for surgery, discussed with Dr. Ta who will notify the surgeon on for the weekend although it is not certain that this will be done before Saturday - for now she has a peripheral IV # Escalation of chronic pain due to her esophageal dysmotility - We will resume her usual regimen, going back to oral Dilaudid instead of Percocet - Also use when necessary IV Dilaudid # Although she is quite discouraged about her chronic pain she does not appear to me to be suicidal Akua Banks MD Aug 17, 2016 19:19
[2016-08-17] MEDS: SODIUM CHLORIDE 0.9% IV SCH (20:10)
[2016-08-17] MEDS: 0.9% Sodium Chloride 1,000 ML IV SCH (20:10)
[2016-08-17] MEDS: PROMETHAZINE IV SCH (20:10)
[2016-08-17] MEDS ORDERED: Promethazine 50 mg/mL Inj IV SCH (20:30)
[2016-08-17] MEDS: Clobetasol Prop 0.05% 15 Gm Ointment TOPICAL SCH (20:40)
[2016-08-17 20:48] VITALS: BP 120/85; PULSE 89; RESP 19; O2SAT 94
[2016-08-17] MEDS: Pantoprazole 4 mg/mL 10 mL Inj IV SCH (20:56)
[2016-08-18] MEDS: SODIUM CHLORIDE 0.9% IV SCH ×6 (00:08→21:05)
[2016-08-18] MEDS: PROMETHAZINE IV SCH ×6 (00:08→21:05)
[2016-08-18 01:02] VITALS: BP 108/73; PULSE 85; RESP 16; O2SAT 93
[2016-08-18] MEDS: HYDROmorphone 1 mg/mL Inj IVPUSH PRN (03:36)
[2016-08-18] MEDS: Pantoprazole 4 mg/mL 10 mL Inj IV SCH ×3 (05:30→21:03)
[2016-08-18 05:37] VITALS: BP 99/67; PULSE 72; RESP 16; O2SAT 93
--- NOTE | 2016-08-18 06:03 | NUR ---
NPO Pt NPO at midnight
[2016-08-18] MEDS: Clobetasol Prop 0.05% 15 Gm Ointment TOPICAL SCH ×2 (08:30→21:05)
[2016-08-18] MEDS: Magnesium Chloride SR 64 mg ER24 Tablet PO SCH (08:52)
[2016-08-18] MEDS ORDERED: OXYC-466 PO (09:43)
[2016-08-18 10:07] VITALS: BP 114/72; PULSE 76; RESP 20; O2SAT 95
--- NOTE | 2016-08-18 10:48 | NUR ---
Social Work- Initial Assessment Data: See Initial Assessment. Pt is a 55 year old female admitted 08/17/16 for uncontrolled yesenia per H&P. Pt's insurance is [employer] and PCP is MD Minor. EMR reviewed. SW met with pt regarding discharge plan, SW role explained. Pt alert and oriented x3. Pt resides alone in [place] where she remains independent with her ADLs. Pt uses a cane at base (due to a recent ankle injury) and drives. Pt has HH history-- pt currently open with [facility]. Pt has SNF history- unable to remember name. Pt has no LTC or VA benefits. Pt has completed DPOA paperwork and SW encouraged pt to bring copy to the hospital. Pt's DPOA is Sofia Coon, mother, . Pt has chronic pain which is managed at the pain clinic. Per H&P pt has expressed thoughts of hopelessness and states she is depressed. SW checked in re: suicidal ideation and pt states that while she does feel depressed due to her current pain, she would "never commit suicide" and cited family, friends, and hobbies as protective factors. Pt to discharge home with resume [facility], family to transport via POV. SW will continue to follow. Assessment: Pt who is independent [place] base and currently open with [facility]. Plan: Pt currently open with [facility]. Pt to discharge home with resume [facility], family to transport via POV. SW will continue to follow. ARCENIO Quiñonez Addendum: 08/18/16 at 1053 by DOLLY BA Amended: Links added.
--- NOTE | 2016-08-18 11:32 | CONS ---
[address] [address] CONSULTATION REPORT PATIENT: KAYLA LARIOS : 1960 MR#: [id number] ADMIT: 08/17/2016 JOB ID: [id number] DATE OF SERVICE: 08/18/2016 CHIEF COMPLAINT: General Surgery has been asked by the hospitalist service to place a Groshong catheter in this person who was admitted yesterday late in the day. HISTORY OF PRESENT ILLNESS: This patient had a Groshong catheter placed by Interventional Radiology and for some unclear reason was pulled back and was unable to be advanced. It was therefore taken out and she was admitted to the hospital when an IV was placed and General surgery was consulted. I actually saw her in consultation on September 07 of this year, at which time, I recommended a percutaneous gastrostomy tube in her distal stomach remnant (please see my detailed note from July 08). This did not happen but instead she had a PICC line placed which she tells me somehow got pulled back accidentally by the outpatient nurses when they were doing the dressing changes, followed by this Groshong placed by Interventional Radiology that again got pulled back through some unknown mechanism. She currently has a peripheral IV for her IV promethazine and pantoprazole which allows her to eat. PHYSICAL EXAMINATION: She is afebrile with stable vital signs. Her BMI is stable at 32. She has dressings at her previous Groshong site. 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 I could certainly place a Groshong catheter but I do not think that is in her best interest. In my opinion, she should have a percutaneous gastrostomy tube through which she can both received nutrition but also receive her pantoprazole and her promethazine which should allow her to take p.o. I think it is also essential that she get back to see either her bariatric surgeon, of if her bariatric surgery refuses to see her or consider an operation, that she get a 2nd opinion from another bariatric surgeon. I think she has a complex but fairly straightforward problem and that much of her abdominal pain could be addressed by both taking down her gastrogastric fistula and possibly resecting part of her distal stomach. My concern regarding placing a Groshong catheter is that I think that as long as she has reliable IV access, she is not moving ahead with seeing her doctors down at the [facility]. She tells me that she has an appointment in early August, though it is unclear to me whether this is with the bariatric surgeon or with the GI Department. I have given her my opinion that she should have a percutaneous gastrostomy tube followed by consultation with a bariatric surgeon for takedown of her gastrogastric fistula and resection of whatever peptic ulcer disease she has in her gastric remnant. I have explained to her that the percutaneous gastrostomy tube would have lower likelihood of chronic leakage problems around then the previously placed surgical gastrostomy tube she had. Nonetheless she does not want to take my recommendation. She would like to get a 2nd opinion from the on-call surgeon on Saturday and so what I will do is set up both for an attempt at a PICC line on Saturday as well as a consultation with Dr. Matamoros who will be the general surgeon on-call, on Saturday. I have left it with the patient and the nurses that if the patient changes her mind and wants to move ahead with a gastrostomy tube tomorrow, that they should contact me and I will arrange it.
[2016-08-18] MEDS: 0.9% Sodium Chloride 1,000 ML IV SCH (12:59)
--- NOTE | 2016-08-18 16:13 | NUR ---
IV Patient reports painful IV half way through promethazine infusion. Mild redness noted at IV. Pt reports being a "hard IV start and having IV's go bad frequently". IV therapy here to replace IV. Heat pack placed on painful IV site.
--- NOTE | 2016-08-18 18:16 | NUR ---
SR explained and signed. Copy of SR given to pt
[2016-08-18 18:23] VITALS: BP 94/69; PULSE 73; RESP 20; O2SAT 98
--- NOTE | 2016-08-18 19:02 | PCM.PNMED ---
Subjective Date of Service Aug 18, 2016 Subjective Pain and nausea under better control Exam Vital Signs Vital Sign - Last Date Time Temp Pulse Resp B/P Pulse Ox O2 Delivery O2 Flow Rate FiO2 08/18/16 18:23 37.1 73 20 94/69 98 Room Air Intake and Output 08/17/16 08/17/16 08/18/16 Cumulative From/Thru 15:00 23:00 07:00 08/17/16 12:57 - 08/18/16 06:54 Intake Total 926 ml 926 ml Balance 926 ml 926 ml Intake Oral 300 ml 300 ml IV Total 626 ml 626 ml # Voids 2 2 # Bowel Movements 0 0 Exam General: Alert and oriented, no acute distress Heart: Regular Lungs: Clear Abdomen: Soft, non-tender Extremities: No pedal edema Assessment & Plan # Admitted at the request of interventional radiology due to loss of central IV access and need for replacement by surgery - Surgery consult done by Dr Nation who does not feel andi is in her best interest (see his consult), so far patient not agreeable to his recommendations and wants other surgery opinion on Saturday - for now she has a peripheral IV, discussed PICC with her but so far not agreeable - does not feel any alternatives that would get her home over the weekend (and return for outpt [facility]) would work for her, did advice her that her insurance may not cover an OBS stay that long # Escalation of chronic pain due to her esophageal dysmotility - We will resume her usual regimen, going back to oral Dilaudid instead of Percocet - Also use when necessary IV Dilaudid # Although she is quite discouraged about her chronic pain she does not appear to me to be suicidal Akua Banks MD Aug 18, 2016 19:02
[2016-08-18 23:08] VITALS: BP 119/81; PULSE 78; RESP 18; O2SAT 94
[2016-08-19] MEDS: 0.9% Sodium Chloride 1,000 ML IV SCH ×3 (00:02→16:36)
[2016-08-19] MEDS: PROMETHAZINE IV SCH ×6 (00:41→20:36)
[2016-08-19] MEDS: SODIUM CHLORIDE 0.9% IV SCH ×6 (00:41→20:36)
[2016-08-19 04:36] VITALS: BP 93/65; PULSE 75; RESP 17; O2SAT 95
[2016-08-19] MEDS: Pantoprazole 4 mg/mL 10 mL Inj IV SCH ×3 (04:47→20:36)
--- NOTE | 2016-08-19 06:08 | NUR ---
IV/Pain Pt IV needed replaced due to redness and pain. Pt stated better pain control over previous night.
[2016-08-19] MEDS: Magnesium Chloride SR 64 mg ER24 Tablet PO SCH (08:16)
--- NOTE | 2016-08-19 08:26 | NUR ---
HYACINTH signed by ARCENIO Faith
[2016-08-19] MEDS: Clobetasol Prop 0.05% 15 Gm Ointment TOPICAL SCH ×3 (08:30→20:37)
--- NOTE | 2016-08-19 08:35 | NUR ---
JOSE- Continued Discharge Planning SW left messages with both [facility]: and [facility] : to update them on pt's hospital admission. JOSE left message with UR specialist to follow up again Saturday, 08/20. ARCENIO Quiñonez
[2016-08-19 08:48] LABS: Mean Corpuscular Hemoglobin 25.2 pg (27.0-35.0); Mean Corpuscular Volume 81.7 fL (81-100)
[2016-08-19 09:12] LABS: Magnesium 1.7 mg/dL (1.6-2.6)
[2016-08-19 11:33] VITALS: BP 93/61; PULSE 72; RESP 18; O2SAT 94
[2016-08-19 15:02] VITALS: BP 100/67; PULSE 72; RESP 18; O2SAT 95
[2016-08-19] MEDS ORDERED: diphenhydrAMINE-Zinc 2%-0.1% 30 Gm Cream TOPICAL PRN (15:05)
--- NOTE | 2016-08-19 16:18 | PCM.PNMED ---
Subjective Date of Service Aug 19, 2016 Subjective Patient was seen and examined at bedside today. Patient denies any chest pain, shortness of breath,diarrhea, but reports nausea and vomiting. The patient also still complains of a significant amount of pain and feels that she is about to lose her IV access. Overnight events:None Exam Vital Signs Vital Sign - Last Date Time Temp Pulse Resp B/P Pulse Ox O2 Delivery O2 Flow Rate FiO2 08/19/16 15:02 36.6 72 18 100/67 95 Room Air Intake and Output 08/18/16 08/18/16 08/19/16 Cumulative From/Thru 15:00 23:00 07:00 08/17/16 12:57 - 08/19/16 06:00 Intake Total 1021 ml 1444 ml 3391 ml Balance 1021 ml 1444 ml 3391 ml Intake Oral 200 ml 860 ml 1360 ml IV Total 821 ml 584 ml 2031 ml # Voids 2 2 6 # Bowel Movements 0 Exam Physical Exam: GEN: Patient was awake, alert, responding appropriately to questions HEENT: Pupils equal round and reactive to light, extraocular eye muscles intact , Neck soft supple, trachea midline, nomocephalic/atraumatic CV: +S1/S2, regular rate and rhythm, no murmurs auscultated, Skin: Left upper chest with healing lesions secondary to Groshong removal, no erythema or edema noted Respiratory: CTAB, no wheezes, rales, rhonchi GI: +bowel sounds x4, soft, compressible, nontender to palpation EXT: no clubbing, cyanosis, edema Neuro: Cranial nerves II-XII grossly intact Psych: mood and affect were appropriate IVs and Medications Medications Reviewed: Medications were reviewed in detail Lab and Diagnostics Result Diagram: 08/19/1682908/19/16829 Assessment & Plan 55-year-old female who presents secondary to loss of central IV access Admitted at the request of interventional radiology due to loss of central IV access and need for replacement by surgery -Dr. Nation consulted patient would like a second opinion she would like her Groshong replaced Dr. Nation does not feel that this is in the patient's best interest and should get a PEG tube -Peripheral IV access at this time we will continue to discuss possible PICC placement for the patient however she is not agreeable to this at this time -Patient does have an appointment at the [facility] for this Saturday for possible discussion of revision of her gastric bypass surgery Escalation of chronic pain due to her esophageal dysmotility -Continue her regular oral Dilaudid regimen with when necessary IV Dilaudid Intractable nausea -Restart patient's home Phenergan regiment as this seems to work best for her -Patient is encouraged to eat small meals DVT prophylaxis: SCDs patient will potentially go into surgery tomorrow and will consider anticoagulation after decision for surgery has been made.scd Disposition: Patient currently would like to speak with Dr. Matamoros tomorrow in order to get a second opinion in regards to the Groshong. The patient would like the Groshong replaced and to continue on her TPN regiment. The patient does have an appointment on this Saturday at the [facility] where she originally had her gastric bypass. She will meet with the physicians there to discuss a possible revision surgery. Pain Evaluation: Pain not Controlled Resuscitation Status: CPR: Attempt Resuscitation Renee Huitron DO Aug 19, 2016 16:18
--- NOTE | 2016-08-19 17:47 | NUR ---
IV IV in right forearm became red and painful, IV removed, heat applied. IV therapy placed new IV.
[2016-08-19 18:40] VITALS: BP 113/68; PULSE 76; RESP 20; O2SAT 94
[2016-08-19] MEDS: HYDROmorphone 1 mg/mL Inj IVPUSH PRN (20:43)
[2016-08-20] MEDS: SODIUM CHLORIDE 0.9% IV SCH ×5 (03:29→12:31)
[2016-08-20] MEDS: PROMETHAZINE IV SCH ×5 (03:29→12:31)
--- NOTE | 2016-08-20 05:32 | NUR ---
Pain/Nausea Pain has been well managed w/ current scheduled regimen, 1 dose of po dilaudid and IV promethazine held r/t pt sedation and pt stated analgesia. Pt has had otherwise good night.
[2016-08-20 06:11] VITALS: BP 102/70; PULSE 69; RESP 16; O2SAT 94
[2016-08-20] MEDS: Pantoprazole 4 mg/mL 10 mL Inj IV SCH ×2 (06:12→12:30)
[2016-08-20] MEDS: Magnesium Chloride SR 64 mg ER24 Tablet PO SCH (07:56)
[2016-08-20] MEDS: Clobetasol Prop 0.05% 15 Gm Ointment TOPICAL SCH (08:30)
--- NOTE | 2016-08-20 08:34 | DRSVH ---
PROCEDURE: CENTRAL LINE PLACEMENT INDICATIONS: MALFUNCTION COMPARISON: [facility], XA, CV TUNNEL CATH PLCMNT, 07/13/2016, 11:42. FINDINGS: IMPRESSION: Dictated by: Giovanny Murray M.D. on 08/20/2016 at 8:29 Approved by: Giovanny Murray M.D. on 08/20/2016 at 8:32
--- NOTE | 2016-08-20 08:58 | PCM.PNSURG ---
Subjective Visit Information: Reason for Visit Uncontrolled Pain Surgery/Surgery Date Post-Op Day # Date of Admission: Aug 17, 2016 at 13:52 Hospital Day # Subjective: patient seen, wants a groshong catheter and not a feeding tube at this time Objective Objective Awake in bed No distress Vital Sign- Last 8 Hours Date Time Temp Pulse Resp B/P Pulse Ox O2 Delivery O2 Flow Rate FiO2 08/20/16 06:11 36.7 69 16 102/70 94 Room Air Intake and Output- Last 8 Hour 08/20/16 Cumulative From/Thru 07:00 08/17/16 12:57 - 08/20/16 06:11 Intake Total 608 ml 4814 ml Balance 608 ml 4814 ml Intake Oral 1780 ml IV Total 608 ml 3034 ml # Voids 3 12 # Bowel Movements 0 Result Diagram: 08/19/16 0830 08/19/16 0830 Assessment & Plan Impression Lack of central venous access Problems: Plan Discussed with IR (Dr. Murray), who has her scheduled for groshong catheter placement this afternoon Resuscitation Status: CPR: Attempt Resuscitation Sal Matamoros MD August 20, 2016 08:58
[2016-08-20] MEDS ORDERED: Heparin 5,000 Units/500 mL NS Premix IV ONE (08:59)
[2016-08-20] MEDS ORDERED: Heparin 1,000 Unit/mL 10 mL Inj ONE (08:59)
[2016-08-20] MEDS ORDERED: 0.9% Sodium Chloride 1,000 ML ONE (09:00)
[2016-08-20 10:35] VITALS: BP 133/65; PULSE 62; RESP 14; O2SAT 95
--- NOTE | 2016-08-20 10:39 | PCM.HPANE ---
Patient Data Date of Service: August 20, 2016 Surgeon Admitting Provider:Akua Banks MD Attending Provider:Akua Banks MD Primary Care Physician:Eliu Galindo MD Other Provider: Reason for Visit Uncontrolled Pain Ht/WT & BMI Height (Feet): 5 Height (Inches): 6.50 Weight (Kilograms): 91.400 Body Mass Index .00 Allergies Coded Allergies: codeine (Verified Allergy, Intermediate, Hives, 07/17/16) diclofenac sodium (Verified Allergy, Intermediate, Rash, 07/17/16) ibuprofen (Verified Allergy, Intermediate, Nausea,Vomiting, 07/17/16) zolpidem (Verified Allergy, Intermediate, sleep walking/ abnormal activity , 07/17/16) Adhesives (Unverified Allergy, Unknown, UNKNOWN (NO PLASTIC TAPE-HYPA FIX OK), 07/17/16) Tetracyclines (Unverified Allergy, Unknown, UNKNOWN, 07/17/16) capsaicin (Verified Allergy, Unknown, Blood blisters, 07/17/16) menthol (Verified Allergy, Unknown, blood blisters, 07/17/16) aspirin (Verified Adverse Reaction, Severe, Contraindicated post gastric bypass, 07/17/16) morphine (Unverified Adverse Reaction, Severe, NO ALLERGY-DRUG NOT EFFECTIVE, 07/17/16) Uncoded Allergies: NSAIDS (Allergy, Unknown, WITH GASTRIC SURGERY NO NSAIDS, 02/04/16) Past Anesthesia History Anesthesia History: Denies:: Anesthesia Reactions, Malignant Hyperthermia Diabetes History Hx Diabetes?: No MRSA MRSA: No Medications Reported Medications oxyCODONE-Acetaminophen 10-325 mg 1 Each Tablet1 Tablet PO q4-6h PRN For Pain Ref 0 08/18/16 Methadone 10 Mg/1 Ml Oral.conc20 Mg PO HS do not exceed 4 ml = 40mg daily 08/17/16 Methadone 10 Mg/1 Ml Oral.conc10 Mg PO BID PRN For Pain 0600 and 1400 08/17/16 Levothyroxine (Tirosint)25 Mcg Uaenqyp10 Mcg PO DAILY 08/16/16 Fluticasone Propionate (Flonase Allergy Relief)50 Mcg/Actuation [place].susp1 [place] NS DAILY PRN RHINITIS 07/06/16 Magnesium Chloride (Slow-Mag)64 Mg Vntegr49 Mg PO DAILY 07/06/16 Hydromorphone 4 Mg Tablet4 Mg PO Q4H Ref 0 07/14/15 Methocarbamol 750 Mg Qccmam023 Mg PO Q4H Ref 0 TAKES AT 0600, 1400, 0 07/14/15 Cholecalciferol (Vitamin D3) (Vitamin D3)50,000 Unit Uzbskhl79,000 Unit PO WEEKLY Sundays01/08/14 Promethazine 50 Mg/1 Ml Ampul50 Mg IV Q 4HRS PRN 01/08/14 Pantoprazole Sodium (Protonix IV)40 Mg Vial40 Mg IV Q 8HRS TAKES AT 0600, 1400, 0 01/08/14 Clobetasol Propionate/Emoll (Clobetasol Emollient 0.05% Crm)15 Gm Cream..g.1 Appl TP BID PRN PRN #1 TUBE 01/08/14 Cyanocobalamin (Cyanocobalamin Injection)1,000 Mcg/1 Ml Vial1,000 Mcg IM Monthly 10TH OF THE MONTH 01/08/14 Discontinued Reported Medications Cephalexin (Keflex)500 Mg Gnswuqv643 Mg PO TID #40 CAPSULE Ref 0 08/16/16 Methadone 5 Mg/5 Ml Solution7.5 Mg PO QAM AT 0600 Ref 0 TAKE 7.5 MG PO IN AM, 12.5 MG PO AT 1400, AND 20 MG AT HS 07/14/15 Tetrahydrozoline HCl/Zn Sulf (Visine Allergy Relief Drop)15 Ml Drops2 Drop BOTH_ EYES Q2H PRN DRY EYES 07/06/16 Acetaminophen 325 Mg Vdmnth564 Mg PO Q6H PRN For Fever Ref 0 07/06/16 Discontinued Scripts Promethazine 6.25 Mg/5 Ml Syrup50 Mg PO Q4H #250 ML Ref 0 Prov:Lyubov Barillas 07/16/16 Pantoprazole Sodium (Protonix Granules)40 Mg Granpkt.dr40 Mg PO TID #3 PACKET Ref 0 Prov:Lyubov BarillasP 07/16/16 History History of ENT Problems?: No HEENT History: Positive for:: Sinus Problem (seasonal allergies) Denies:: Cataracts Dysphagia Glaucoma Hearing Problem Denture Type: Full- Upper Full- Lower Teeth Condition: No Teeth Hx of Heart Problems?: Yes Cardiovascular History: Positive for:: Chest Pain (with esophageal spasm) Congestive Heart Failure (diastolic dysfunction) Edema (1+ [place]) Heart Murmur Irregular Heartbeat (PVC'S) Denies:: Cardiac Surgery Hypertension Pacemaker Thrombophlebitis Hx of Respiratory Problem?: Yes Respiratory History: Positive for:: Chest Surgery (HX OF SARCOIDOSIS S/P MEDIASTINOSCOPY) Dyspnea ([place]) Denies:: Asthma COPD Cough Emphysema Hemoptysis Oxygen Administration Pneumonia Pulmonary Embolism Tuberculosis Use of C-PAP Machine (had sleep study, said she stop breathing 17x hr) Hx Neurologic Problems?: No Neurological History: Positive for:: Dizziness ([place]OPE W/ MULT FALLS/ CONCUSSION) Headaches (resolved, related to stress) Denies:: Alzheimer's Disease CVA Dementia Multiple Sclerosis Parkinson's Disease Seizures Hx of GI Problems?: Yes Hx of Problems?: No Genitourinary History: Denies:: HX of Hemodialysis Kidney Stones Urinary Tract Infection HX of Peritoneal Dialysis: No Female Hx: Positive for:: Endometriosis Denies:: Currently Pelvic Inflammatory Problems with Breasts? Skin History: Positive for:: History Skin Disorders? (exzema, psoriasis) Denies:: Pressure Ulcers Hx Musculoskeletal Problems?: Yes Musculoskeletal History: Positive for:: Back Injury Musculoskeletal Trauma (RECURRENT FALLS) Denies:: Degenerative Joint Joint Replacement Systemic Lupus Hx of Psycho/Social Problems?: Yes Psycho Social History: Positive for:: Anxiety Hx Depression (suicidal ideation) Denies:: Bipolar Disorder Suicide Attempt Hx Surgeries?: Yes (numerous) Hx Any Other Health Problems?: Yes Other History: Positive for:: Hospitalization Denies:: Cancer Endocrine Disease Thyroid Disease History Blood Transfusions: Positive for:: Accept Blood Products? Denies:: Blood Transfuse Reaction Blood Transfusions Hx Diabetes: No Hx Alcohol Use: NoHx Substance Use: Yes (prescribed) Smoking Status: Former Smoker Have You Smoked inLast 12 mo: No Stop/Bang Treated for Sleep Apnea?: No Do You Have a CPAP Machine?: No S-Snoring: Do You Snore Loudly: No T-Tired: feel tired, fatigued: No O-Obsered: Observed not breath: No P-Blood Pressure: treated: No B- Body Mass Index > 35 kg/m2: No A- Age over 50: Yes N- Neck Large Circumference: No G- Gender Male: No DONOVAN Risk Assessment: Low Risk, <3 Yes Risk Assessment Category Category 1A: Patient has history of documented sleep apnea, and HAS NOT received any narcotic, sedative or anesthesia administration during this stay. Category 1B: Patient has history of documented sleep apnea, and HAS received any narcotic , sedative or anesthesia administration during this stay Category 2: Patient has SUSPECTED Obstructive Sleep Apnea, and HAS received any narcotic , sedative or anesthesia administration during this stay. Category 3: Patient has SUSPECTED Obstructive Sleep Apnea and HAS NOT received narcotic, sedative or anesthesia administration during this stay. Category 4: Outpatient in Procedural Areas with known sleep apnea or who screen positive for High Risk via the STOP/BANG questionnaire. Exam Exam Vital Signs Vital Signs Date Time Temp Pulse Resp B/P Pulse Ox O2 Delivery O2 Flow Rate FiO2 08/20/16 10:35 62 14 133/65 95 Room Air 08/20/16 06:11 36.7 69 16 102/70 94 Room Air General Appearance: Alert, Oriented X3, Cooperative, No Acute Distress HEENT/AIRWAY: MP 2 Lungs: Clear to Auscultation, Normal Air Movement Heart: Exam Unremarkable, Regular Rate/Rhythm, No Murmurs/Rubs/Gallops Meds/Labs/Diagnostics Labs Test 08/19/16 08:30 White Blood Count 3.8th/mm3 (3.8-10.1) Red Blood Count 4.09mil/mm3 (3.90-5.20) Hemoglobin 10.3g/dL (12.0-15.6) Hematocrit 33.4% (35.0-46.0) Mean Corpuscular Volume 81.7fL (81-100) Mean Corpuscular Hemoglobin 25.2pg (27.0-35.0) Mean Corpuscular Hemoglobin Concent 30.8% (32.0-37.0) Red Cell Distribution Width 15.1% (12.3-15.4) Platelet Count 303bil/L (150-400) Sodium Level 136mEq/L (134-144) Potassium Level 4.1mEq/L (3.5-5.2) Chloride Level 101mEq/L (97-108) Carbon Dioxide Level 26mmol/L (18-29) Blood Urea Nitrogen 8mg/dL (6-24) Creatinine 0.60mg/dL (0.57-1.00) Estimat Glomerular Filtration Rate 149mL/min (>59) Glucose Level 84mg/dL (60-99) Calcium Level 8.6mg/dL (8.5-10.1) Magnesium Level 1.7mg/dL (1.6-2.6) Total Bilirubin 0.2mg/dL (0.0-1.2) Aspartate Amino Transf (AST/SGOT) 12U/L (0-50) Alanine Aminotransferase (ALT/SGPT) 6U/L (0-32) Alkaline Phosphatase 93U/L (25-150) Total Protein 5.6g/dL (6.4-8.4) Albumin 3.0g/dL (3.4-5.0) Plan Impression Patient chart reviewed, patient interviewed and anesthestic plan with risks, benefits, and alternatives discussed, and informed consent obtained. ASA Physical Status: ASA2 Mod Systemic Disease Anesthetic Plan: MAC Bene/Risks/Altern/Consents: Yes HP Complete Prior to Induction: Yes Alistair Mazariegos MD August 20, 2016 10:39
[2016-08-20 10:40] VITALS: BP 133/58; PULSE 62; RESP 14; O2SAT 97
--- NOTE | 2016-08-20 10:40 | PCM.ANEP1 ---
Post Anesthesia Phase 1 PACU Phase 1 Assessment Date of Service: August 20, 2016 Vital Signs Vital Signs Date Time Temp Pulse Resp B/P Pulse Ox O2 Delivery O2 Flow Rate FiO2 08/20/16 10:35 62 14 133/65 95 Room Air 08/20/16 06:11 36.7 69 16 102/70 94 Room Air Anesthetic Administered: MAC Level of Alertness: Sleepy, easy to arouse Pain: No Pain Scale Score: 5 Nausea or Vomiting: No Cardiovascular Function and Hy: Yes Lungs: Clear to Auscultation, Normal Air Movement Alistair Mazariegos MD August 20, 2016 10:40
[2016-08-20] MEDS: HYDROmorphone 1 mg/mL Inj IVPUSH PRN (11:06)
--- NOTE | 2016-08-20 11:12 | DRSVH ---
PROCEDURE: 1. right subclavian vein tunneled hemodialysis catheter placement. 2. Ultrasound guidance for right subclavian vein access. INDICATIONS: Renal failure. COMPARISON: None. Technique: Informed, written consent from the patient was obtained prior to the procedure. Patient wa s brought to the angiography suite, and sedation was provided by the anesthesiology service, while co ntinuous cardiorespiratory monitoring was performed. The right neck and chest wall were prepped and d raped sterilely, and infused with lidocaine. Maximal sterile barrier technique, hand hygiene, skin p reparation, and sterile ultrasound technique was followed. A mask, sterile gown, sterile gloves, a la rge sterile sheet, hand hygiene, and 2% chlorhexidine or iodine was utilized for skin antisepsis. Th e right subclavian vein was accessed antegrade under sonographic guidance with a micropuncture set. A n 035 J-wire was advanced into the inferior vena cava, and a subcutaneous tunnel was built within the right anterior chest wall. A 10 [place] Groshong catheter was advanced through the subcutaneous tunne l, and the venotomy tract was dilated. The tunneled catheter was advanced through a peel-away sheath, and the tip was placed at the cavoatrial junction. Adequate flow was obtained through the catheter l umen. The venotomy tract was closed with Polysorb, and the catheter was fastened to the skin surface. FINDINGS: The right subclavian vein is patent by ultrasound. Followingcatheter placement, the tip of the catheter is at the cavoatrial junction. IMPRESSION: Right subclavian vein tunneled Groshong catheter placement. Dictated by: Giovanny Murray M.D. on 08/20/2016 at 11:08 Approved by: Giovanny Murray M.D. on 08/20/2016 at 11:10
[2016-08-20 12:07] VITALS: BP 119/81; PULSE 68; RESP 16; O2SAT 97
[2016-08-20] MEDS ORDERED: HYDR4TAB PO (12:12)
--- NOTE | 2016-08-20 12:17 | PCM.DIMED ---
Discharge Instructions Date of Service August 20, 2016 Dates of Hospitalization Aug 17, 2016 at 13:52 Discharge Diagnosis Discharge Diagnosis Central IV access replacement (Groshong) Escalation of chronic pain due to esophageal dysmotility Intractable nausea Diet Low fat, Low Sodium Activity No restrictions Call your provider Fever or Chills, Shortness of breath, Bleeding, Chest pain, Weakness (unilateral ) Patient Instructions Follow-up Provider: Eliu Galindo MD Follow-up with PCP in: 1 week (if an appointment has not been made please call to schedule an appointment) Follow-up in: 1 week (please follow up at the [facility] with the sand operator for your stomach pain. Please do not miss this appointment scheduled for Saturday, August 24.) Renee Huitron DO August 20, 2016 12:17
--- NOTE | 2016-08-20 12:20 | PCM.DC.MED ---
Discharge Summary Date of Service August 20, 2016 Dates of Hospitalization Date of Hospital Admission Aug 17, 2016 at 13:52 Date of Discharge: August 20, 2016 Providers: Admitting Physician: Akua Banks MD Primary Care Physician: Eliu Galindo MD Attending Physician: Akua Banks MD Diagnosis at Time of Discharge Diagnosis at Time of Discharge Central IV access replacement (Groshong) Escalation of chronic pain due to esophageal dysmotility Intractable nausea Brief History One month ago she was admitted with an infected left Groshong catheter. She reports that it was removed and she temporarily had a PICC and then Groshong catheter was replaced on the left. She has not noted any signs of infection. However Dr. Oh noted that she appeared to have pulled back the catheter and he was going to attempt to push it back in today. However he was unable to do this and felt she needed to be admitted so that surgery could place a new access and also so that her pain could be controlled. He was concerned that she had mentioned suicidal ideations to the nurse. She tells me that she is " at the end of my rope" and has had fleeting thoughts of ending her life but says she would never do this because "I would never do that by family" Her chronic esophageal and left upper quadrant pain has been worsening. She does have an appointment with gastroenterology at [facility] regarding this in 1 week. She is also having frequent nausea and vomiting Hospital Course 55-year-old female who presents secondary to loss of central IV access Patient was admitted secondary to loss of central IV access. Patient had her Groshong replaced today by Dr. Matamoros and it is currently functional. Patient is being discharged home in stable condition and will resume her regular chronic pain medications and antiemetics. Patient is being prescribed 4 mg of Dilaudid #20 and should follow up with her pain clinic if further medication as needed. The patient has been instructed to follow-up with [facility] in regards to this chronic abdominal pain she may need to have a revision of her surgery. The patient stated that she understood and would follow-up with [facility]. See below for full hospital course: Admitted at the request of interventional radiology due to loss of central IV access and need for replacement by surgery -Dr. Nation consulted patient would like a second opinion she would like her Groshong replaced Dr. Nation does not feel that this is in the patient's best interest and should get a PEG tube -Peripheral IV access at this time we will continue to discuss possible PICC placement for the patient however she is not agreeable to this at this time -Patient does have an appointment at the [facility] for this Saturday for possible discussion of revision of her gastric bypass surgery Escalation of chronic pain due to her esophageal dysmotility -Continue her regular oral Dilaudid regimen with when necessary IV Dilaudid Intractable nausea -Restart patient's home Phenergan regiment as this seems to work best for her -Patient is encouraged to eat small meals DVT prophylaxis: SCDs patient will potentially go into surgery tomorrow and will consider anticoagulation after decision for surgery has been made.scd Disposition: Patient currently would like to speak with Dr. Matamoros tomorrow in order to get a second opinion in regards to the Groshong. The patient would like the Groshong replaced and to continue on her TPN regiment. The patient does have an appointment on this Saturday at the [facility] where she originally had her gastric bypass. She will meet with the physicians there to discuss a possible revision surgery. Exam Vital Signs (Last) Date Time Temp Pulse Resp B/P Pulse Ox O2 Delivery O2 Flow Rate FiO2 08/20/16 10:40 62 14 133/58 97 Room Air 08/20/16 06:11 36.7 Exam Physical Exam: GEN: Patient was awake, alert, responding appropriately to questions HEENT: Pupils equal round and reactive to light, extraocular eye muscles intact , Neck soft supple, trachea midline, nomocephalic/atraumatic CV: +S1/S2, regular rate and rhythm, no murmurs auscultated, right Groshong in place and currently functional Respiratory: CTAB, no wheezes, rales, rhonchi GI: +bowel sounds x4, soft, compressible, generalized tenderness to palpation EXT: no clubbing, cyanosis, edema Neuro: Cranial nerves II-XII grossly intact Psych: mood and affect were appropriate Test 08/19/16 08:30 White Blood Count 3.8th/mm3 (3.8-10.1) Red Blood Count 4.09mil/mm3 (3.90-5.20) Hemoglobin 10.3g/dL (12.0-15.6) Hematocrit 33.4% (35.0-46.0) Mean Corpuscular Volume 81.7fL (81-100) Mean Corpuscular Hemoglobin 25.2pg (27.0-35.0) Mean Corpuscular Hemoglobin Concent 30.8% (32.0-37.0) Red Cell Distribution Width 15.1% (12.3-15.4) Platelet Count 303bil/L (150-400) Sodium Level 136mEq/L (134-144) Potassium Level 4.1mEq/L (3.5-5.2) Chloride Level 101mEq/L (97-108) Carbon Dioxide Level 26mmol/L (18-29) Blood Urea Nitrogen 8mg/dL (6-24) Creatinine 0.60mg/dL (0.57-1.00) Estimat Glomerular Filtration Rate 149mL/min (>59) Glucose Level 84mg/dL (60-99) Calcium Level 8.6mg/dL (8.5-10.1) Magnesium Level 1.7mg/dL (1.6-2.6) Total Bilirubin 0.2mg/dL (0.0-1.2) Aspartate Amino Transf (AST/SGOT) 12U/L (0-50) Alanine Aminotransferase (ALT/SGPT) 6U/L (0-32) Alkaline Phosphatase 93U/L (25-150) Total Protein 5.6g/dL (6.4-8.4) Albumin 3.0g/dL (3.4-5.0) Discharge Medications Discharge Medications Cholecalciferol (Vitamin D3) (Vitamin D3) 50,000 Unit Capsule 50,000 UNIT PO WEEKLY (Reported) SUNDAYS Cyanocobalamin (Cyanocobalamin Injection) 1,000 Mcg/1 Ml Vial 1,000 MCG IM Monthly (Reported) OF THE Hydromorphone (Hydromorphone) 4 Mg Tablet 4 MG PO Q4H Prescribed by: LAURO HUITRON, Levothyroxine (Tirosint) 25 Mcg Capsule 25 MCG PO DAILY (Reported) Magnesium Chloride (Slow-Mag) 64 Mg Tablet 64 MG PO DAILY (Reported) Methadone (Methadone) 10 Mg/1 Ml Oral.conc 20 MG PO HS (Reported) do not exceed 4 ml = 40mg daily Methocarbamol (Methocarbamol) 750 Mg Tablet 750 MG PO Q4H (Reported) TAKES AT 0600, 1400, 2200 Pantoprazole Sodium (Protonix IV) 40 Mg Vial 40 MG IV Q 8HRS (Reported) TAKES AT 0600, 1400, 2200 Promethazine (Promethazine) 50 Mg/1 Ml Ampul 50 MG IV Q 4HRS PRN (Reported) As needed Clobetasol Propionate/Emoll (Clobetasol Emollient 0.05% Crm) 15 Gm Cream..g. 1 APPL TP BID PRN PRN PRN (Reported) Fluticasone Propionate (Flonase Allergy Relief) 50 Mcg/Actuation [place].susp 1 SPRAY NS DAILY PRN PRN RHINITIS (Reported) Methadone (Methadone) 10 Mg/1 Ml Oral.conc 10 MG PO BID PRN PRN For Pain ( Reported) 0600 and 1400 Followup Plan Discharge Diet: Low fat, Low Sodium Discharge Activity: No restrictions Follow-up Provider: Eliu Galindo MD Follow-up with PCP in: 1 week (if an appointment has not been made please call to schedule an appointment) Follow-up in: 1 week (please follow up at the [facility] with the administrative professional for your stomach pain. Please do not miss this appointment scheduled for Saturday, August 24.) Time spent Greater than 35 minutes Lauro Huitron DO August 20, 2016 12:20
[2016-08-20] MEDS ORDERED: TEMA15CA3 PO (12:55)
--- NOTE | 2016-08-20 16:34 | NUR ---
Social Work: Continued Discharge Planning JOSE faxed [phone] patient's clinical to Cathy [phone] at [facility]. Infusion and she confirmed receiving patient's clinical. Patient will discharge home with [facility] for home infusion. JOSE patino continue to follow. Caroline Sutton, AXEL, ACM
[2016-08-20] MEDS ORDERED: Ketamine 10 mg/mL 20 mL Inj ONE (17:19)
[2016-08-20] MEDS ORDERED: Propofol 10,000 mCg/mL 20 mL Inj ONE (17:19)
--- NOTE | 2016-08-20 17:20 | NUR ---
Discharge note- Returned from [facility] post Groshong line placement. Iv site dressing slightly bloody and IV therapy came and changed dressing, which has remained dry and intact. Discharged to home with friend and personal belongings.
[2016-08-24] MEDS ORDERED: Ergocalciferol (Vit D2) 50,000 Unit Capsule PO SCH (08:30)
== END 2016-08-20 17:20 | disposition home or self-care (01) ==
LOC: SOUO 01:20 → OBSVTOIN 13:52 → INTOOBSV 13:52 → MOC 13:52
PROVIDERS: ADMIT Internal Medicine; ATTEND Internal Medicine
DX: T82.594A Other mechanical complication of infusion catheter, initial encounter (principal); K22.4 Dyskinesia of esophagus; G89.4 Chronic pain syndrome; R11.0 Nausea; R10.12 Left upper quadrant pain; I95.9 Hypotension, unspecified; K21.9 Gastro-esophageal reflux disease without esophagitis; M17.11 Unilateral primary osteoarthritis, right knee; M17.12 Unilateral primary osteoarthritis, left knee; Z87.891 Personal history of nicotine dependence; Z98.84 Bariatric surgery status
CPT/HCPCS: 36415; 36569; 71010; 80053; 83735; 85027; 96374; 96375; 96376; 99152; 99153; C1769; G0378; G0379; J0690; J1170; J1644; J1650; J1885; J2250; J2550; J3010; J7030; Q9967

== ENCOUNTER 2016-11-23 16:18 | Emergency (ER) | payer MEDICARE ==
[~2016-11-23] VITALS: Ht 167.6 cm; Wt 86.3 kg
[~2016-11-23 16:18] MED LIST changes: -CEPH-512 PO; +METH10OR11 PO; -METH5SOL PO; +TEMA15CA3 PO
[2016-11-23 16:20] VITALS: BP 164/112; PULSE 99; RESP 18; O2SAT 93
[2016-11-23 17:55] LABS: BASOPHILS % (AUTO) 0 % (0-3); EOSINOPHILS % (AUTO) 0 % (0-5); MONOCYTES % (AUTO) 10.3 % (4-12); Mean Corpuscular Hemoglobin 25.6 pg (27.0-35.0); Mean Corpuscular Volume 80.4 fL (81-100); NEUTROPHILS % (AUTO) 45.9 % (40-74); Platelet Count 360 bil/L (150-400)
--- NOTE | 2016-11-23 18:12 | ED.REPORT ---
HPI-General Illness Date of Service Nov 23, 2016 ED Provider: Joshua Saba MD Pt is a 55 year old female with a hx of GERD, esophageal spasm, and a Groshong line because of esophageal dysmotility presenting to the ED complaining of redness, pain and green drainage from her Groshong line onset yesterday. Associated symptoms include fever of 100.6 yesterday and chills. She was admitted in August with an infection of her Groshong line, and had a new one placed. Denies cough, dysuria, or a fever today. Nursing Notes Stated Complaint: POSSIBLE INFECTION IN GROSHONG LINE Chief Complaint: Skin Rash/Abscess Nursing Notes Reviewed: Yes Allergies: Coded Allergies: codeine (Verified Allergy, Intermediate, Hives, 11/23/16) diclofenac sodium (Verified Allergy, Intermediate, Rash, 11/23/16) ibuprofen (Verified Allergy, Intermediate, Nausea,Vomiting, 11/23/16) zolpidem (Verified Allergy, Intermediate, sleep walking/ abnormal activity , 11/23/16) Adhesives (Unverified Allergy, Unknown, UNKNOWN (NO PLASTIC TAPE-HYPA FIX OK), 11/23/16) Tetracyclines (Unverified Allergy, Unknown, UNKNOWN, 11/23/16) capsaicin (Verified Allergy, Unknown, Blood blisters, 11/23/16) menthol (Verified Allergy, Unknown, blood blisters, 11/23/16) aspirin (Verified Adverse Reaction, Severe, Contraindicated post gastric bypass, 11/23/16) morphine (Unverified Adverse Reaction, Severe, NO ALLERGY-DRUG NOT EFFECTIVE, 11/23/16) Uncoded Allergies: NSAIDS (Allergy, Unknown, WITH GASTRIC SURGERY NO NSAIDS, 02/04/16) Scheduled Cholecalciferol (Vitamin D3) (Vitamin D3) 50,000 Unit Capsule 50,000 UNIT PO WEEKLY SUNDAYS Cyanocobalamin (Cyanocobalamin Injection) 1,000 Mcg/1 Ml Vial 1,000 MCG IM Monthly OF THE Hydromorphone (Hydromorphone) 4 Mg Tablet 4 MG PO Q4H Levothyroxine (Tirosint) 25 Mcg Capsule 25 MCG PO DAILY Magnesium Chloride (Slow-Mag) 64 Mg Tablet 64 MG PO DAILY Methadone (Methadone) 10 Mg/1 Ml Oral.conc 20 MG PO HS do not exceed 4 ml = 40mg daily Methocarbamol (Methocarbamol) 750 Mg Tablet 750 MG PO Q4H TAKES AT 0600, 1400, 2200 Pantoprazole Sodium (Protonix IV) 40 Mg Vial 40 MG IV Q 8HRS TAKES AT 0600, 1400, 2200 Promethazine (Promethazine) 50 Mg/1 Ml Ampul 50 MG IV Q 4HRS PRN Scheduled PRN Clobetasol Propionate/Emoll (Clobetasol Emollient 0.05% Crm) 15 Gm Cream..g. 1 APPL TP BID PRN PRN PRN Fluticasone Propionate (Flonase Allergy Relief) 50 Mcg/Actuation [place].susp 1 SPRAY NS DAILY PRN PRN RHINITIS Methadone (Methadone) 10 Mg/1 Ml Oral.conc 10 MG PO BID PRN PRN For Pain 0600 and 1400 Temazepam (Restoril) 15 Mg Capsule 15 MG PO HS PRN PRN Insomnia General Time Seen by MD: 18:10 Chief Complaint Rash Hx Obtained From: Patient Arrived By: Walk-in Sudden in Onset?: Yes Onset Occurred: Yesterday Symptom Duration: Since onset Location: : Chest Quality: Painful Severity: Current: Moderate Severity: Maximum: Moderate Recent Healthcare: No recent doctor visit, No recent hospitalization Similar Sx Previous: Yes Past Medical History Past Medical History Hypotension Esophageal dysmotility GERD Chronic pain Groshong catheter for chronic IV medications Past Surgical History Gastric bypass Groshong catheter site (I&D) Family History Noncontributory Smoking History Former Smoker Social History Other Social History: Good social support, Local resident Ambulatory Status Independent Review of Systems Full Review of Systems Constitutional: Reports: Chills, Fever Respiratory: Denies: Non-productive cough Female: Denies: Dysuria Skin: Reports Rash Complete sys rev & neg: except as marked. Physical Exam Vital Signs Vital Signs Date Time Temp Pulse Resp B/P Pulse Ox O2 Delivery O2 Flow Rate FiO2 11/23/16 16:20 37.0 99 18 164/112 93 Room Air Initial VS: Reviewed General/Constitutional: Well-developed, Well-nourished Head / Eyes: Atraumatic, Normocephalic, PERRL ENT: Mucous membranes moist, Conjunctiva normal, No scleral icterus Neck: Supple, Non-tender, Full range of motion Respiratory: Breath sounds normal, Clear to auscultation, No respiratory distress Cardiovascular: Regular rate & rhythm, Heart sounds normal, Intact distal pulses Abdomen / GI: Soft, Non-tender, No guarding, No rebound, No distention Extremities: Vascular intact, Neuro intact, No swelling, No tenderness Neurologic: Alert, Oriented, Nonfocal Psychiatric: Mood/affect normal, Behavior normal, Normal thought content Skin: Warm, Dry, Intact Central access in right anterior chest wall. Small amount of erythema surrounding it. The area around the catheter is tender, no appreciable discharge. Interpretation & Diagnostics Lab Results Interpretation Result Diagram: 11/23/16 1735 11/23/16 1735 Test 11/23/16 17:31 11/23/16 17:35 11/23/16 18:41 Hold Dawson Top Tube Received (Received) White Blood Count 6.2th/mm3 (3.8-10.1) Red Blood Count 4.69mil/mm3 (3.90-5.20) Hemoglobin 12.0g/dL (12.0-15.6) Hematocrit 37.7% (35.0-46.0) Mean Corpuscular Volume 80.4fL (81-100) Mean Corpuscular Hemoglobin 25.6pg (27.0-35.0) Mean Corpuscular Hemoglobin Concent 31.8% (32.0-37.0) Red Cell Distribution Width 16.8% (12.3-15.4) Platelet Count 360bil/L (150-400) Neutrophils (%) (Auto) 45.9% (40-74) Lymphocytes (%) (Auto) 43.6% (14-46) Monocytes (%) (Auto) 10.3% (4-12) Eosinophils (%) (Auto) 0% (0-5) Basophils (%) (Auto) 0% (0-3) Sodium Level 133mEq/L (134-144) Potassium Level 4.2mEq/L (3.5-5.2) Chloride Level 96mEq/L (97-108) Carbon Dioxide Level 22mmol/L (18-29) Blood Urea Nitrogen 11mg/dL (6-24) Creatinine 0.75mg/dL (0.57-1.00) Estimat Glomerular Filtration Rate 115mL/min (>59) Glucose Level 96mg/dL (60-99) Calcium Level 9.1mg/dL (8.5-10.1) Magnesium Level 1.5mg/dL (1.6-2.6) Total Bilirubin 0.2mg/dL (0.0-1.2) Aspartate Amino Transf (AST/SGOT) 19U/L (0-50) Alanine Aminotransferase (ALT/SGPT) 14U/L (0-32) Alkaline Phosphatase 131U/L (25-150) Total Protein 7.4g/dL (6.4-8.4) Albumin 3.8g/dL (3.4-5.0) Urine Color Yellow (YELLOW) Urine Appearance Clear (CLEAR,HAZY) Urine pH 5.0 (5.0-8.0) Urine Specific [place] 1.025 (1.003-1.035) Urine Protein Negativemg/dL (NEG,TRACE) Urine Glucose (UA) Negativemg/dL (NEGATIVE) Urine Ketones Negativemg/dL (NEGATIVE) Urine Occult Blood Negative (NEGATIVE) Urine Nitrite Negative (NEGATIVE) Urine Bilirubin Negative (NEGATIVE) Urine Urobilinogen Normalmg/dL (NORMAL) Urine Leukocyte Esterase Trace (NEGATIVE) Urine RBC 0-2/hpf (0-2) Urine WBC 0-5/hpf (0-5) Urine Epithelial Cells Few/hpf (NONE-MOD) Urine Crystals None seen (NONE SEEN) Urine Bacteria None/hpf (NONE-FEW) Urine Hyaline Casts None/lpf (NONE) Urine Granular Casts None seen (NONE SEEN) Urine Waxy Casts None seen (NONE SEEN) Urine Red Blood Cell Casts None seen (NONE SEEN) Urine White Blood Cell Casts None seen (NONE SEEN) Urine Mucus None seen (None Seen) Urine Trichomonas None seen (NONE SEEN) Urine Yeast None (NONE SEEN) Urinalysis Comment None Urine Culture Reflexed Indicated X-Ray Chest Interpretation Chest Xray Interpretation: IMPRESSION: No acute cardiopulmonary findings. Dictated by: Yarely Oh M.D. on 11/23/2016 at 19:00 View: Portable, 1 view Interpretation / Wet Read by: Interpret - Radiologist Re-Eval/Medical Decision Med Decision/Clinical Course Patient presents with concern over possible infected Groshong, based on her erythema and pain. At present I do not find much on her exam to suggest that she is infected. Her white count is normal and she is afebrile today. Cultures have been sent, we looked for other possible sources of infection and did not find one therefore have elected not to start her on empiric antibiotics. SHe will return for increasing evidence of infection such as fever. Time of Eval: 19:15 Patient Status: Condition improved Re-Evaluation/Progress Note: Had a discussion about admitting the pt and putting her on IV antibiotics, she declined and would like to be discharged. Discussed plan for discharge. Pt understands and agrees. Consultation : Referral / Consult Name: Vielka Ponce MD Consulted With: Surgeon Call Returned at: 18:24 Note: Recommends admitting the pt and getting blood cultures. He will take out the catheter if need be. Counseled Regarding: Diagnosis, Lab results, Need for follow-up, When/why to return to ED Discharge & Departure Primary Impression: Central line complication Encounter type: initial encounter Qualified Code: T82.9XXA - Unspecified complication of cardiac and vascular prosthetic device, implant and graft, initial encounter Disposition: Home Discharge Condition All VS Reviewed: Yes Condition: Improved Additional Instructions: ED evaluation today included interview, review of records, labs, chest x-ray and discussion with on-call surgeon. Labs and exam are reassuring, there is no clear evidence of infection. At this point, we (you and I) have elected to be discharged. We have drawn blood cultures and we will call if they show cause for treatment. If you have fevers, shaking chills or increasing redness, return to the ED immediately. Follow up with primary care on Saturday. Continue previous home medications. Referrals: Cliff Minor DO (PCP) Caleb Attestation Portions of this note were transcribed by Joyce Heck. I, Dr. Saba personally performed the history, physical exam and medical decision-making; I reviewed and confirmed the accuracy of the information in the transcribed note. Signed by : Caleb Sargent, 11/23/2016. copies to: Cliff Minor Donald L MD Nov 23, 2016 18:12 JOYCE HECK Nov 23, 2016 18:24
[2016-11-23 18:18] LABS: Magnesium 1.5 mg/dL (1.6-2.6)
--- NOTE | 2016-11-23 19:02 | DRSVH ---
PROCEDURE: X-RAY CHEST ONE VIEW, PORTABLE ([id number]) INDICATIONS: fever TECHNIQUE: One view of the chest was acquired. COMPARISON: None. FINDINGS: Surgical changes and devices: A right-sided subclavian catheter is present, the tip of which is proje cted over the cavoatrial junction. Lungs and pleura: No pleural effusions or pneumothorax. Lungs are clear. Mediastinum: Mediastinal contours appear normal. Heart size is normal. Bones and chest wall: No suspicious bony lesions. Overlying soft tissues appear unremarkable. IMPRESSION: No acute cardiopulmonary findings. Dictated by: Yarely Oh M.D. on 11/23/2016 at 19:00 Approved by: Yarely Oh M.D. on 11/23/2016 at 19:00
[2016-11-23 19:05] LABS: APPEARANCE,URINE CLEAR (CLEAR,HAZY); COLOR,URINE YELLOW (YELLOW); OCCULT BLOOD,URINE NEGATIVE (NEGATIVE); UROBILINOGEN,URINE NORMAL (NORMAL)
== END 2016-11-23 19:50 | disposition home or self-care (01) ==
LOC: SED 16:18
DX: T82.898A Other specified complication of vascular prosthetic devices, implants and grafts, initial encounter (principal); Y84.8 Other medical procedures as the cause of abnormal reaction of the patient, or of later complication, without mention of misadventure at the time of the procedure; Y93.89 Activity, other specified; Y99.8 Other external cause status; Y92.89 Other specified places as the place of occurrence of the external cause; K21.9 Gastro-esophageal reflux disease without esophagitis; K22.4 Dyskinesia of esophagus; Z87.891 Personal history of nicotine dependence; Z98.84 Bariatric surgery status; Z88.5 Allergy status to narcotic agent; Z88.6 Allergy status to analgesic agent; Z88.1 Allergy status to other antibiotic agents; Z88.8 Allergy status to other drugs, medicaments and biological substances